=== PATIENT | male | born 1940 | race Caucasian/White ===

== ENCOUNTER 2021-02-14 09:40 | Inpatient (IN) ==
--- NOTE | 2021-02-14 10:37 | Emergency Department Note ---
Impression & Plan CHF (congestive heart failure), Hypoxic, Back fracture ED Provider Note NAME: HOLLEY DUNAWAY AGE: 80 SEX: M : 1940 ARRIVES VIA: Walk-In INFORMANT: Patient ED PROVIDER(S): Dylan Arvizu DO CHIEF COMPLAINT: back pain HPI: Patient is a 80-year-old male with past medical history of spinal stenosis who presents to the ER for lower back pain. He notes that this has been going on for over 5 years and has worsened recently to the point he can no longer get up and move around. He has been having to have assistance for the past 2 months. He denies any belly pain, nausea, vomiting, or diarrhea. He is currently pain-free as long as he is laying. When he gets up and moves he has severe pain 10 out of 10. He denies any headache or change in vision. No chest pain. He has no shortness of breath currently with movement he does get a little short of breath. He does have swelling in his legs. ROS: See above HPI for pertinent positives & negatives. A total of 10 systems reviewed and were otherwise negative. PAST MEDICAL HISTORY:See Below PAST SURGICAL HISTORY:See Below FAMILY HISTORY:See Below SOCIAL HISTORY:See Below HOME MEDICATIONS:See Below ALLERGIES:See Below VITALS:See Below PHYSICAL EXAMINATION: GENERAL: Sitting up in bed, alert, chronically ill-appearing, disheveled EYE EXAM: normal conjunctiva. PERRL and EOM's grossly intact. OROPHARYNX: no exudate, no erythema, lips, buccal mucosa, and tongue normal and mucous membranes are moist NECK: supple, no nuchal rigidity, no adenopathy, non-tender LUNGS: Clear to auscultation. Normal chest wall mechanics HEART: no murmurs, S1 normal and S2 normal ABDOMEN: abdomen soft, non-tender, normo-active bowel sounds, no masses, no rebound or guarding. BACK: Back is symmetrical on inspection tenderness in the lower lumbar midline UPPER EXTREMITIES: upper extremities are grossly normal. LOWER EXTREMITIES: Pitting edema bilaterally which is equal NEURO EXAM: Normal sensorium, cranial nerves II-XII grossly intact, normal speech, no gross weakness of arms, mild flexion of bilateral hips about 20 to 30 degrees. Unable to lift feet off the ground. Plantar and dorsiflexion intact. Gross sensation is intact. MEDICAL DECISION MAKING: Patient is a 80-year-old male who presents the ER for lower back pain. IV was established blood was obtained. He was found to be hypoxic. Labs show no significant anemia. BMP with slightly elevated chloride. Creatinine 1.5. BNP elevated 20,000. Lipase was normal. Covid was negative. CT lower back shows new fractures in combination with chest x-ray of the chest which shows cephalization pleural effusions. Patient was updated bedside. Do favor pitting edema and effusions are consistent with CHF. He was given Lasix. He was updated bedside. He was pain-free as long as he was not moving. He was given a dose of steroids due to the impinged nerves. Discussed with hospitalist and were admitted for further work-up. Triage Nursing notes reviewed. Limited review of prior medical records performed Vital Signs: reviewed and remarkable for hypoxic Differential diagnosis: Differential diagnoses includes but is not limited to acute coronary syndrome, myocardial infarction, pericarditis, pulmonary embolus, aortic dissection, pneumonia, pneumothorax, musculoskeletal, shingles, esophageal. ER treatment provided: See below Diagnostics interpreted by me: ECG: Sinus rhythm rate is 66 Left axis Left bundle PVCs QTC 515 Cardiac Monitoring: An order was placed for continuous cardiac monitoring. The monitor shows a rate of 62 with sinus rhythm. Laboratory studies: As stated above and show below. Imaging studies: Chest x-ray with bilateral effusions CT of the lumbar region shows new compression fractures Consultation(s): Discussed with [facility] hospitalist for further evaluation Procedures: none Critical Care: I have personally spent 33 minutes of critical care time in the direct management of this patient. This includes bedside care, interpretation of diagnostic studies, and testing, discussion with consultants, patient, and family members, and other required patient management activities. This 33 minutes is in excess of all separately billable procedures. Past Med/Surg History Medical History Atrial fibrillation CAD (coronary artery disease) Congestive heart failure COPD (chronic obstructive pulmonary disease) PAD (peripheral artery disease) Surgical History Hx of CABG S/P femoral-femoral bypass surgery Family History Other Diabetes Heart disease Social History (Updated 02/14/21 @ 16:18 by Becca Vo PA-C) Smoking Status: Former smoker Smoking End Date: 1988; Hx Alcohol Use: Yes Alcohol type: beer Alcohol Intake Frequency: 2-4 x/Month Hx Substance Use: No Feels Safe at Home: Yes Allergies Allergies Allergy/AdvReac Type Severity Reaction Status Date / Time carvedilol [From Coreg] AdvReac Severe shortness Unverified 02/14/21 12:34 of breath Home Meds Home Medications Medication Instructions Recorded Confirmed amiodarone 200 mg tablet (Pacerone) 200 mg PO QAM 02/14/21 02/14/21 aspirin 81 mg tablet,delayed 81 mg PO QAM 02/14/21 02/14/21 release (Aspirin Low Dose) furosemide 20 mg tablet (Lasix) 20 mg PO QAM 02/14/21 02/14/21 lisinopril 10 mg tablet (Zestril) 10 mg PO QAM 02/14/21 02/14/21 metoprolol succinate 50 mg 50 mg PO QAM 02/14/21 02/14/21 tablet,extended release 24 hr (Toprol XL) salmeterol 50 mcg/dose blister 1 inh INHALATION BID 02/14/21 02/14/21 powder for inhalation (Serevent Diskus) Results & Data (ED) Vital Signs Vital Signs - 24 hr 02/14/21 09:40 02/14/21 10:06 02/14/21 10:37 Temperature 36.9 C Temperature Source Oral Pulse Rate 60 Pulse Rate [Apical] 59 L Pulse Rate from SpO2 Sensor Pulse Rhythm [Apical] Regular Pulse Strength [Apical] Normal Respiratory Rate 18 24 Respiratory Effort / Characteristics Spontaneous Respiratory Depth Normal Respiratory Pattern Regular Blood Pressure 115/53 L Blood Pressure [Left Arm] 120/60 Blood Pressure Mean 73 Blood Pressure Mean [Left Arm] 80 Blood Pressure Position [Left Arm] Semi-fowlers Pulse Oximetry 97 83 L 88 L Oxygen Delivery Method Nasal Cannula Room Air Room Air Oxygen Flow Rate 2 2 Sepsis Recent Fever Within 48 Hours No Sepsis New/Unexplained Change in Mental Status N/A Sepsis Action Taken by Nursing No Action Required 02/14/21 11:00 02/14/21 11:30 02/14/21 11:40 Temperature Temperature Source Pulse Rate 58 L 67 Pulse Rate [Apical] 65 Pulse Rate from SpO2 Sensor 58 L 59 L Pulse Rhythm [Apical] Regular Pulse Strength [Apical] Normal Respiratory Rate 19 17 20 Respiratory Effort / Characteristics Spontaneous Respiratory Depth Normal Respiratory Pattern Regular Blood Pressure 124/63 128/61 Blood Pressure [Left Arm] 127/62 Blood Pressure Mean 83 83 Blood Pressure Mean [Left Arm] 83 Blood Pressure Position [Left Arm] Semi-fowlers Pulse Oximetry 98 97 96 Oxygen Delivery Method Nasal Cannula Oxygen Flow Rate 2 Sepsis Recent Fever Within 48 Hours Sepsis New/Unexplained Change in Mental Status Sepsis Action Taken by Nursing 02/14/21 12:00 02/14/21 12:30 02/14/21 13:00 Temperature Temperature Source Pulse Rate 66 66 68 Pulse Rate [Apical] 68 Pulse Rate from SpO2 Sensor 64 66 67 Pulse Rhythm [Apical] Regular Pulse Strength [Apical] Normal Respiratory Rate 18 26 H 16 Respiratory Effort / Characteristics Spontaneous Respiratory Depth Normal Respiratory Pattern Regular Blood Pressure 127/62 134/73 121/80 Blood Pressure [Left Arm] 134/73 Blood Pressure Mean 83 93 93 Blood Pressure Mean [Left Arm] 93 Blood Pressure Position [Left Arm] Semi-fowlers Pulse Oximetry 98 97 95 Oxygen Delivery Method Nasal Cannula Oxygen Flow Rate 2 Sepsis Recent Fever Within 48 Hours Sepsis New/Unexplained Change in Mental Status Sepsis Action Taken by Nursing 02/14/21 13:33 Temperature Temperature Source Pulse Rate 67 Pulse Rate [Apical] Pulse Rate from SpO2 Sensor 68 Pulse Rhythm [Apical] Pulse Strength [Apical] Respiratory Rate 17 Respiratory Effort / Characteristics Respiratory Depth Respiratory Pattern Blood Pressure Blood Pressure [Left Arm] Blood Pressure Mean Blood Pressure Mean [Left Arm] Blood Pressure Position [Left Arm] Pulse Oximetry 95 Oxygen Delivery Method Oxygen Flow Rate Sepsis Recent Fever Within 48 Hours Sepsis New/Unexplained Change in Mental Status Sepsis Action Taken by Nursing Laboratory Data Result diagrams: 02/14/21 11:00 02/14/21 11:00 Lab Results 02/14/21 02/14/21 02/14/21 Range/Units 11:00 11:00 11:00 WBC 7.69 (4.8-10.8) K/uL RBC 3.77 L (4.7-6.1) M/uL Hgb 13.8 L (14.0-18.0) g/dL Hct 42.4 (42-52) % MCV 112.5 H (80-100) fL MCH 36.6 H (25-34) pg MCHC 32.5 (32-36) g/dL RDW Std Deviation 62.6 H (36.4-46.3) fL RDW Coeff of Patrizia 15.2 H (11.5-14.5) % Plt Count 159 (130-400) K/uL MPV 10.3 (7.4-10.4) fL Immature Gran % (Auto) 0.3 % Neut % (Auto) 76.1 % Lymph % (Auto) 10.3 % [place] % (Auto) 12.4 % Eos % (Auto) 0.8 % Baso % (Auto) 0.1 % Neut # (Auto) 5.86 (1.4-6.5) K/uL Lymph # (Auto) 0.79 L (1.2-3.4) K/uL [place] # (Auto) 0.95 H (0.11-0.59) K/uL Eos # (Auto) 0.06 (0-0.5) K/uL Baso # (Auto) 0.01 (0-0.2) K/uL Immature Gran # (Auto) 0.02 (0.00-0.02) K/uL Macrocytosis Present APTT 25.6 (21.0-31.0) Seconds PTT Ratio 1.0 Sodium 143 (136-145) mmol/L Potassium 4.5 (3.5-5.1) mmol/L Chloride 111 H (98-107) mmol/L Carbon Dioxide 26 (21-32) mmol/L Anion Gap 6.0 (3-11) BUN 37 H (7-18) mg/dl Creatinine 1.50 H (0.6-1.4) mg/dl Est Cr Clr Drug Dosing 42.5 ml/min Est GFR ( Amer) 50.6 ml/min Est GFR (Non-Af Amer) 43.7 ml/min BUN/Creatinine Ratio 24.9 H (10-20) Glucose 97 (70-99) mg/dl Calcium 9.0 (8.5-10.1) mg/dl Total Bilirubin 1.0 (0.2-1) mg/dl AST 52 H (15-37) U/L ALT 30 (12-78) U/L Alkaline Phosphatase 162 H (45-117) U/L Troponin I < 0.015 (0-0.045) ng/ml NT-Pro-B Natriuret Pep [id number] H (0-1800) pg/ml Total Protein 6.9 (6.4-8.2) gm/dl Albumin 3.3 L (3.4-5.0) gm/dl Globulin 3.6 (2.5-4.0) gm/dl Albumin/Globulin Ratio 0.9 (0.9-2) Lipase 66 L (73-393) U/L COVID-19 Eval Order SARS-CoV-2 (PCR) (Negative) 02/14/21 02/14/21 Range/Units 11:03 11:03 WBC (4.8-10.8) K/uL RBC (4.7-6.1) M/uL Hgb (14.0-18.0) g/dL Hct (42-52) % MCV (80-100) fL MCH (25-34) pg MCHC (32-36) g/dL RDW Std Deviation (36.4-46.3) fL RDW Coeff of Patrizia (11.5-14.5) % Plt Count (130-400) K/uL MPV (7.4-10.4) fL Immature Gran % (Auto) % Neut % (Auto) % Lymph % (Auto) % [place] % (Auto) % Eos % (Auto) % Baso % (Auto) % Neut # (Auto) (1.4-6.5) K/uL Lymph # (Auto) (1.2-3.4) K/uL [place] # (Auto) (0.11-0.59) K/uL Eos # (Auto) (0-0.5) K/uL Baso # (Auto) (0-0.2) K/uL Immature Gran # (Auto) (0.00-0.02) K/uL Macrocytosis APTT (21.0-31.0) Seconds PTT Ratio Sodium (136-145) mmol/L Potassium (3.5-5.1) mmol/L Chloride (98-107) mmol/L Carbon Dioxide (21-32) mmol/L Anion Gap (3-11) BUN (7-18) mg/dl Creatinine (0.6-1.4) mg/dl Est Cr Clr Drug Dosing ml/min Est GFR ( Amer) ml/min Est GFR (Non-Af Amer) ml/min BUN/Creatinine Ratio (10-20) Glucose (70-99) mg/dl Calcium (8.5-10.1) mg/dl Total Bilirubin (0.2-1) mg/dl AST (15-37) U/L ALT (12-78) U/L Alkaline Phosphatase (45-117) U/L Troponin I (0-0.045) ng/ml NT-Pro-B Natriuret Pep (0-1800) pg/ml Total Protein (6.4-8.2) gm/dl Albumin (3.4-5.0) gm/dl Globulin (2.5-4.0) gm/dl Albumin/Globulin Ratio (0.9-2) Lipase (73-393) U/L COVID-19 Eval Order Covid19 at [facility] SARS-CoV-2 (PCR) NEGATIVE (Negative) Administered Medications Discontinued Medications Dexamethasone Sodium Phosphate (DexamethasonePf 10 Mg/Ml Vial) 8 mg IV NOW ONE Stop: 02/14/21 12:30 Last Admin: 02/14/21 12:52 Dose: 8 mg Documented by: [id number] Furosemide (Furosemide 40 Mg/4 Ml Vial) 40 mg IV NOW STA Stop: 02/14/21 12:12 Last Admin: 02/14/21 12:16 Dose: 40 mg Documented by: [id number] Imaging Data Radiologist's Impression: Chest X-Ray 02/14/21 10:31 XR chest 1V portable HISTORY: 80 years-old Male Chest Pain . Acute atypical chest pain COMPARISON: Chest CT 06/28/2015 TECHNIQUE: Portable AP view of the chest FINDINGS: Cardiac silhouette is enlarged. Prior median sternotomy. Left subclavian pacer/AICD. Emphysema. Pulmonary vascular congestion with progressive interstiti al coarsening. Small left pleural effusion with left lung base opacities. No pneumothorax. Degenerative changes of the shoulders and spine. IMPRESSION: 1. Small left pleural effusion with left lung base opacities suggestive of atelectasis versus pneumonia. 2. Emphysema and chronic interstitial coarsening. 3. Cardiomegaly with pulmonary vascular congestion. ACT 112: Negative or not required by law. The above report was generated using voice recognition software. It may contain grammatical, syntax or spelling errors. Electronically signed by: Tulio Esquivel M.D. 02/14/2021 11:[address] 02/14/21 10:31 CT SCAN OF THE LUMBAR SPINE WITHOUT IV CONTRAST CLINICAL HISTORY: Low back pain. COMPARISON STUDY: CT of the lumbar spine dated 09/09/2012. TECHNIQUE: CT scan of the lumbar spine is performed from the lower thoracic spine to the sacrum. Images are reviewed in the axial, sagittal, and coronal planes. IV contrast was not administered for this examination. A dose lowering technique was utilized adhering to the principles of ALARA. CT DOSE: 726.73 mGy.cm FINDINGS: The skeletal structures are osteopenic. There is a moderate superior endplate compression deformity of L4. There are minimally retropulsed fragments at this level by up to 4 mm. There is a mild superior endplate compression deformity of L2 with no retropulsed fragments seen. These are age-indeterminate but new from 09/09/2012. The L2 fracture may be acute to subacute and there is paravertebral edema. A minimal chronic superior endplate compression deformity of L1 is unchanged from 2013. Vertebral body height is otherwise maintained throughout the lumbar spine. Alignment is preserved. The transverse and spinous processes appear intact. There is no spondylolysis. No lytic or blastic lesion is seen. There is moderate disc space narrowing at L4-L5 and L5-S1. Endplate sclerosis is seen at L5-S1. Posterior disc osteophyte complexes are seen at all lumbar levels from L2 -L3 through L5-S1 and may contribute to mild acquired compromise of the central canal. A right lateral disc extrusion at L4-L5 may impinge on the exiting right L4 nerve root. This is best seen on axial image #302. Facet arthropathy is noted in the mid to lower lumbar region. The visualized sacrum and bony pelvis appear intact. There is fatty atrophy of the paraspinous musculature. Calcific pleural plaques are seen at both lung bases. Bilateral pleural effusions are partially imaged. There is advanced atherosclerotic calcification and ectasia of the abdominal aorta. A saccular aneurysm on image #192 measures up to 2 cm. No retroperitoneal lymphadenopathy is seen. An exophytic cyst is partially visualized arising from the left kidney. There is a 6 mm nonobstructing right renal calculus. Trace ascites is noted in the pelvis. IMPRESSION: 1. There is a mild compression deformity of L2 which is new from 09/09/2012. This may be acute to subacute and there is mild paravertebral edema at this level. Correlate for point tenderness. 2. A moderate superior endplate compression deformity of L4 is also new from 09/09/2012. This is age-indeterminate but likely chronic. 3. A minimal superior endplate compression deformity of L1 is unchanged from 2013. 4. A right lateral disc extrusion at L4-L5 may impinge on the exiting right L4 nerve root. 5. Osteopenia with additional spondylotic and degenerative changes as above. 6. Bilateral pleural effusions are partially visualized. 7. Right-sided nephrolithiasis. 8. 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 9. A small volume of pelvic ascites is partially imaged. ACT 112: Negative or not required by law. Dictated: 02/14/2021 10:52 AM Transcribed: 02/14/2021 11:37 AM [place] [id number] [facility] Electronically signed by: Richard Fink M.D. 02/14/2021 11:41 AM Discharge Plan Visit Data Chief Complaint: Back Injury/Pain Stated Complaint: SEVERE BACK PAIN ED Provider: Dylan Arvizu Discharge Problem: CHF (congestive heart failure), Hypoxic, Back fracture Discharge Instructions Interventions: ED Discharge Assessment Last Done: 02/14/21 16:12 Discharge Problem: CHF (congestive heart failure) Qualifiers: Heart failure type: unspecified Heart failure chronicity: unspecified Qualified Code(s): I50.9 - Heart failure, unspecified Back fracture Qualifiers: Encounter type: initial encounter Fracture of vertebra location: lumbar
[2021-02-14 11:24] LABS: Basophils # (auto) 0.01 K/uL (0-0.2); Basophils % (auto) 0.1 %; Eosinophils # (auto) 0.06 K/uL (0-0.5); Eosinophils % (auto) 0.8 %; Hematocrit (blood only) 42.4 % (42-52); Hemoglobin 13.8 g/dL (14.0-18.0); Immature Granulocytes # (auto) 0.02 K/uL (0.00-0.02); Immature Granulocytes % (auto) 0.3 %; Lymphocytes # (auto) 0.79 K/uL (1.2-3.4); Lymphocytes % (auto) 10.3 %; Mean Corpuscular Hemoglobin 36.6 pg (25-34); Mean Corpuscular Hgb Conc 32.5 g/dL (32-36); Mean Corpuscular Volume 112.5 fL (80-100); Mean Platelet Volume 10.3 fL (7.4-10.4); Monocytes # (auto) 0.95 K/uL (0.11-0.59); Monocytes % (auto) 12.4 %; Neutrophils # (auto) 5.86 K/uL (1.4-6.5); Neutrophils % (auto) 76.1 %; Platelet Count 159 K/uL (130-400); RDW Coefficient of Variation 15.2 % (11.5-14.5); RDW Standard Deviation 62.6 fL (36.4-46.3); Red Blood Count 3.77 M/uL (4.7-6.1); White Blood Count 7.69 K/uL (4.8-10.8)
--- NOTE | 2021-02-14 11:42 | CT Scan Report ---
CT SCAN OF THE LUMBAR SPINE WITHOUT IV CONTRAST CLINICAL HISTORY: Low back pain. COMPARISON STUDY: CT of the lumbar spine dated 09/09/2012. TECHNIQUE: CT scan of the lumbar spine is performed from the lower thoracic spine to the sacrum. Imag es are reviewed in the axial, sagittal, and coronal planes. IV contrast was not administered for this examination. A dose lowering technique was utilized adhering to the principles of ALARA. CT DOSE: 726.73 mGy.cm FINDINGS: The skeletal structures are osteopenic. There is a moderate superior endplate compression d eformity of L4. There are minimally retropulsed fragments at this level by up to 4 mm. There is a mil d superior endplate compression deformity of L2 with no retropulsed fragments seen. These are age-ind eterminate but new from 09/09/2012. The L2 fracture may be acute to subacute and there is paravertebr al edema. A minimal chronic superior endplate compression deformity of L1 is unchanged from 2013. Yoly tebral body height is otherwise maintained throughout the lumbar spine. Alignment is preserved. The t ransverse and spinous processes appear intact. There is no spondylolysis. No lytic or blastic lesion is seen. There is moderate disc space narrowing at L4-L5 and L5-S1. Endplate sclerosis is seen at L5- S1. Posterior disc osteophyte complexes are seen at all lumbar levels from L2 -L3 through L5-S1 and m ay contribute to mild acquired compromise of the central canal. A right lateral disc extrusion at L4- L5 may impinge on the exiting right L4 nerve root. This is best seen on axial image #302. Facet arthr opathy is noted in the mid to lower lumbar region. The visualized sacrum and bony pelvis appear intac t. There is fatty atrophy of the paraspinous musculature. Calcific pleural plaques are seen at both l amy bases. Bilateral pleural effusions are partially imaged. There is advanced atherosclerotic calcif ication and ectasia of the abdominal aorta. A saccular aneurysm on image #192 measures up to 2 cm. No retroperitoneal lymphadenopathy is seen. An exophytic cyst is partially visualized arising from the left kidney. There is a 6 mm nonobstructing right renal calculus. Trace ascites is noted in the pelvi s. IMPRESSION: 1. There is a mild compression deformity of L2 which is new from 09/09/2012. This may be acute to sub acute and there is mild paravertebral edema at this level. Correlate for point tenderness. 2. A moderate superior endplate compression deformity of L4 is also new from 09/09/2012. This is age- indeterminate but likely chronic. 3. A minimal superior endplate compression deformity of L1 is unchanged from 2013. 4. A right lateral disc extrusion at L4-L5 may impinge on the exiting right L4 nerve root. 5. Osteopenia with additional spondylotic and degenerative changes as above. 6. Bilateral pleural effusions are partially visualized. 7. Right-sided nephrolithiasis. 8. 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 9. A small volume of pelvic ascites is partially imaged. ACT 112: Negative or not required by law. Dictated: 02/14/2021 10:52 AM Transcribed: 02/14/2021 11:37 AM [place] [id number] [facility] Electronically signed by: Richard Fink M.D. 02/14/2021 11:41 AM
[2021-02-14 11:43] LABS: Partial Thromboplastin Time 25.6 Seconds (21.0-31.0)
[2021-02-14 11:44] LABS: Alanine Aminotransferase 30 U/L (12-78); Albumin Level 3.3 gm/dl (3.4-5.0); Aspartate Aminotransferase 52 U/L (15-37); BUN Creatinine Ratio 24.9 (10-20); Blood Urea Nitrogen 37 mg/dl (7-18); Carbon Dioxide 26 mmol/L (21-32); Chloride 111 mmol/L (98-107); Creatinine Clr Calc Pharmacy 42.5 ml/min; Est GFR (African American) 50.6 ml/min; Est GFR (Non-African American) 43.7 ml/min; Glucose 97 mg/dl (70-99); Lipase 66 U/L (73-393); Potassium 4.5 mmol/L (3.5-5.1); Sodium 143 mmol/L (136-145)
[2021-02-14 11:49] LABS: Albumin Globulin Ratio 0.9 (0.9-2); Alkaline Phosphatase 162 U/L (45-117); Globulin 3.6 gm/dl (2.5-4.0); Macrocytosis Present; NT Pro B Type Natriuretic Pept 19578 pg/ml (0-1800); Total Protein 6.9 gm/dl (6.4-8.2); Troponin I < 0.015 ng/ml (0-0.045)
--- NOTE | 2021-02-14 11:57 | XRay Report ---
XR chest 1V portable HISTORY: 80 years-old Male Chest Pain . Acute atypical chest pain COMPARISON: Chest CT 06/28/2015 TECHNIQUE: Portable AP view of the chest FINDINGS: Cardiac silhouette is enlarged. Prior median sternotomy. Left subclavian pacer/AICD. Emphysema. Pulmo nary vascular congestion with progressive interstitial coarsening. Small left pleural effusion with l eft lung base opacities. No pneumothorax. Degenerative changes of the shoulders and spine. IMPRESSION: 1. Small left pleural effusion with left lung base opacities suggestive of atelectasis versus pneumon ia. 2. Emphysema and chronic interstitial coarsening. 3. Cardiomegaly with pulmonary vascular congestion. ACT 112: Negative or not required by law. The above report was generated using voice recognition software. It may contain grammatical, syntax o r spelling errors. Electronically signed by: Tulio Esquivel M.D. 02/14/2021 11:55 AM
[2021-02-14] MEDS ORDERED: FUROSEMIDE 40 MG/4 ML VIAL IV STA (12:11)
[2021-02-14] MEDS ORDERED: dexAMETHasone**PF** 10 MG/ML VIAL IV ONE (12:29)
--- NOTE | 2021-02-14 13:43 | History & Physical Report ---
Date of Service February 14, 2021 Assessment & Plan (1) Acute respiratory failure with hypoxia: Plan: This is a 80yo M with a PMH of CAD (s/p CABG in 1994 in [place]), PAD (s/p bilateral femoral stents), COPD, atrial fibrillation and other medical problems listed below who presents with worsening back pain over the past week and was found to have acute hypoxia and decompensated heart failure as well as compression deformity of L2. Initially hypoxic at 83%, improved to 97% on 2L NC In setting of decompensated heart failure Patient did not feel SOB at 83% initially - possibly hypoxic at baseline Would benefit from 2 step at discharge if oxygenation does not improve with diuresis (2) Decompensated heart failure: Plan: CXR with small left pleural effusion with left lung base opacities suggestive of atelectasis versus pneumonia. Cardiomegaly with pulmonary vascular congestion Pro-BNP 19,578, troponin wnl, ECG with wide QRS complexes with PVCs, LAD and LBBB (no EKGs available for comparison) Given 40mg IV Lasix in ED Echo ordered, routine cardiology consult, trend cardiac enzymes repeat labs and ECG in AM Low sodium diet, strict I&Os, monitor daily weights Continue daily IV Lasix 40mg daily (3) Lumbar compression fracture: (4) Ambulatory dysfunction: Plan: History of spinal stenosis, worsening pain and ambulatory dysfunction over the past month since fall CT lumbar spine with * 1. There is a mild compression deformity of L2 which is new from 09/09/2012. This may be acute to subacute and there is mild paravertebral edema at this level. Correlate for point tenderness. 2. A moderate superior endplate compression deformity of L4 is also new from 09/09/2012. This is age-indeterminate but likely chronic. 3. A minimal superior endplate compression deformity of L1 is unchanged from 2013. 4. A right lateral disc extrusion at L4-L5 may impinge on the exiting right L4 nerve root. Given 8mg IV Dexamethasone in ER Adding Lidocaine patch and scheduled Tylenol Fall precautions Dr. Sawant of ortho spine consulted (5) CAD (coronary artery disease): Plan: History of CABG in 1994 at [place], follows with Dr. Holm of [facility] cardiology No chest pain Continue aspirin, Toprol Previously noncompliant with statin - agreeable to resume Will request OP records (6) COPD (chronic obstructive pulmonary disease): Plan: Quit smoking in 1988. Not on home O2. COPD appears to be at baseline. Continue Salmeterol inh BID (7) Atrial fibrillation: Plan: Continue amiodarone. Not on anticoagulation (8) PAD (peripheral artery disease): Plan: H/o vascular intervention of femoral A. bilaterally per patient at [facility]. Planning to resume statin, continue aspirin (9) Macrocytic anemia: Plan: Hgb 13.8, MCV 112.5 - longstanding alcohol use B12 and folate labs pending for AM DVT Ppx: SQ heparin Code status: FULL PCP: Hector ([facility]) Dispo: Admitted to PCU. Discharge planning ordered Patient seen in collaboration with Dr. Wong. Please see addendum. History of Present Illness Chief Complaint: back pain Primary Care Provider: Vita Wright DO This is a 80yo M with a PMH of CAD (s/p CABG in 1994 in [place]), PAD (s/p bilateral femoral stents), COPD, atrial fibrillation and other medical problems listed below who presents with worsening back pain over the past week. Patient has had back pain for years and was evaluated by Dr. Sawant approximately 5 years ago and told to proceed with medical management for that time. Patient had a fall at the beginning of the month. thinks patient is weaker than he used to be and is unable to lower himself down slowly into chairs and onto the toilet, resulting in him "slamming down" and aggravating back pain. Since then, patient has had worsening lower back pain near his waistband and is also having trouble with ambulation. Denies any bowel or bladder incontinence, saddle anesthesia, numbness or pain in lower extremities. Has not been taking anything for pain. Also has history of CAD and CHF. Follows with floor surfacer Dr. Holm at [facility]. Unsure when last echocardiogram was performed. Has a defibrillator - most recent one placed 4 years ago. Unsure of reason why. Takes 20mg Lasix daily. Notes increased volume lower extremities. states patient has lost weight overall. Denies any shortness of breath, orthopnea or PND. Patient states he is chronically short of breath with COPD but that he had not noticed it was worse than baseline before coming in. Does not require home oxygen. Denies fever, chills, congestion, chest pain, palpitations, wheezing, nausea, vomiting, abdominal pain, dysuria, diarrhea constipation. Patient receives primary care in [place]. Allergies Allergy/AdvReac Type Severity Reaction Status Date / Time carvedilol [From Coreg] AdvReac Severe shortness Unverified 02/14/21 12:34 of breath Home Medications Medication Instructions Recorded Confirmed Type amiodarone 200 mg tablet (Pacerone) 200 mg PO QAM 02/14/21 02/14/21 History aspirin 81 mg tablet,delayed 81 mg PO QAM 02/14/21 02/14/21 History release (Aspirin Low Dose) furosemide 20 mg tablet (Lasix) 20 mg PO QAM 02/14/21 02/14/21 History lisinopril 10 mg tablet (Zestril) 10 mg PO QAM 02/14/21 02/14/21 History metoprolol succinate 50 mg 50 mg PO QAM 02/14/21 02/14/21 History tablet,extended release 24 hr (Toprol XL) salmeterol 50 mcg/dose blister 1 inh INHALATION BID 02/14/21 02/14/21 History powder for inhalation (Serevent Diskus) Past Med/Surg History Medical History Atrial fibrillation CAD (coronary artery disease) Congestive heart failure COPD (chronic obstructive pulmonary disease) PAD (peripheral artery disease) Surgical History Hx of CABG S/P femoral-femoral bypass surgery Family History Other Diabetes Heart disease Social History (Updated 02/14/21 @ 16:18 by Becca Vo PA-C) Smoking Status: Former smoker Smoking End Date: 1988; Second Hand Exposure: No; Tobacco Cessation Education Requested by Patient: No Hx Alcohol Use: Yes Alcohol type: beer Alcohol Intake Frequency: 2-4 x/Month Hx Substance Use: No Preferred Language: Italian Communication Ability: Effective Threshing Machine Operator Required: Voice Beliefs That Will Affect Care: None Current Living Situation: Spouse Other Information That Helps Us Care for You: No Feels Safe at Home: Yes Safety Concerns: Feels Safe At This Time Assistive Devices: Cane and Walker Review of Systems Review of Systems: At least ten systems reviewed and negative except as noted in the HPI. Physical Exam Physical Exam: General Appearance: vitals as above, appears chronically ill, sitting up in bed, pleasant, conversing easily Head: normocephalic, atraumatic Eyes: normal inspection, PERRL, conjunctivae normal, anicteric sclerae ENT: external ear and nose normal, oropharynx normal Neck: normal visual inspection, trachea midline, no thyromegaly Respiratory: normal respiratory effort, bibasilar rales, no wheeze or rhonchi. No accessory muscle use Cardiovascular: regular rate, rhythm, no murmur, normal peripheral pulses, 2+ BLE edema. Vessels: no JVD Chest: normal inspection of chest Abdomen/GI: normal bowel sounds, soft, nontender, no hepatosplenomegaly Extremities/Musculoskeletal: no cyanosis or clubbing, extremities motor strength 5/5 Neurologic: PERRL, EOMI, accommodation nl, no face palsy, no dysarthria, CN's II-XI intact bilaterally and moves all extremities Psychiatric: A+Ox3, euthymic affect, poor insight Skin: no rashes, normal color, warm/dry Results & Data Results & Data ([facility]) Vital Signs (Past 12 Hours) Vital Signs Temp Pulse Pulse Resp BP BP Pulse Ox 02/14/21 13:00 68 19 134/73 97 02/14/21 11:40 65 20 127/62 96 02/14/21 10:37 88 L 02/14/21 10:06 36.9 C 60 24 115/53 L 83 L 02/14/21 09:40 59 L 18 120/60 97 Laboratory Results Short CBC 02/14/21 Range/Units 11:00 WBC 7.69 (4.8-10.8) K/uL Hgb 13.8 L (14.0-18.0) g/dL Hct 42.4 (42-52) % Plt Count 159 (130-400) K/uL BMP 02/14/21 11:00 Sodium 143 Potassium 4.5 Chloride 111 H Carbon Dioxide 26 BUN 37 H Creatinine 1.50 H Glucose 97 Calcium 9.0 Cardiac Enzymes 02/14/21 Range/Units 11:00 Troponin I < 0.015 (0-0.045) ng/ml Liver Function 02/14/21 Range/Units 11:00 Total Bilirubin 1.0 (0.2-1) mg/dl AST 52 H (15-37) U/L ALT 30 (12-78) U/L Alkaline Phosphatase 162 H (45-117) U/L Albumin 3.3 L (3.4-5.0) gm/dl Diagnostic Findings Chest X-Ray 02/14/21 10:31 XR chest 1V portable HISTORY: 80 years-old Male Chest Pain . Acute atypical chest pain COMPARISON: Chest CT 06/28/2015 TECHNIQUE: Portable AP view of the chest FINDINGS: Cardiac silhouette is enlarged. Prior median sternotomy. Left subclavian pacer/AICD. Emphysema. Pulmonary vascular congestion with progressive interstitial coarsening. Small left pleural effusion with left lung base opacities. No pneumothorax. Degenerative changes of the shoulders and spine. IMPRESSION: 1. Small left pleural effusion with left lung base opacities suggestive of atelectasis versus pneumonia. 2. Emphysema and chronic interstitial coarsening. 3. Cardiomegaly with pulmonary vascular congestion. ACT 112: Negative or not required by law. The above report was generated using voice recognition software. It may contain grammatical, syntax or spelling errors. Electronically signed by: Tulio Esquivel M.D. 02/14/2021 11:[address] 02/14/21 10:31 CT SCAN OF THE LUMBAR SPINE WITHOUT IV CONTRAST CLINICAL HISTORY: Low back pain. COMPARISON STUDY: CT of the lumbar spine dated 09/09/2012. TECHNIQUE: CT scan of the lumbar spine is performed from the lower thoracic spine to the sacrum. Images are reviewed in the axial, sagittal, and coronal planes. IV contrast was not administered for this examination. A dose lowering technique was utilized adhering to the principles of ALARA. CT DOSE: 726.73 mGy.cm FINDINGS: The skeletal structures are osteopenic. There is a moderate superior endplate compression deformity of L4. There are minimally retropulsed fragments at this level by up to 4 mm. There is a mild superior endplate compression deformity of L2 with no retropulsed fragments seen. These are age-indeterminate but new from 09/09/2012. The L2 fracture may be acute to subacute and there is paravertebral edema. A minimal chronic superior endplate compression deformity of L1 is unchanged from 2012. Vertebral body height is otherwise maintained throughout the lumbar spine. Alignment is preserved. The transverse and spinous processes appear intact. There is no spondylolysis. No lytic or blastic lesion is seen. There is moderate disc space narrowing at L4-L5 and L5-S1. Endplate sclerosis is seen at L5-S1. Posterior disc osteophyte complexes are seen at all lumbar levels from L2 -L3 through L5-S1 and may contribute to mild acquired compromise of the central canal. A right lateral disc extrusion at L4-L5 may impinge on the exiting right L4 nerve root. This is best seen on axial image #302. Facet arthropathy is noted in the mid to lower lumbar region. The visualized sacrum and bony pelvis appear intact. There is fatty atrophy of the paraspinous musculature. Calcific pleural plaques are seen at both lung bases. Bilateral pleural effusions are partially imaged. There is advanced atherosclerotic calcification and ectasia of the abdominal aorta. A saccular aneurysm on image #192 measures up to 2 cm. No retroperitoneal lymphadenopathy is seen. An exophytic cyst is partially visualized arising from the left kidney. There is a 6 mm nonobstructing right renal calculus. Trace ascites is noted in t he pelvis. IMPRESSION: 1. There is a mild compression deformity of L2 which is new from 09/09/2012. This may be acute to subacute and there is mild paravertebral edema at this level. Correlate for point tenderness. 2. A moderate superior endplate compression deformity of L4 is also new from 09/09/2012. This is age-indeterminate but likely chronic. 3. A minimal superior endplate compression deformity of L1 is unchanged from 2013. 4. A right lateral disc extrusion at L4-L5 may impinge on the exiting right L4 nerve root. 5. Osteopenia with additional spondylotic and degenerative changes as above. 6. Bilateral pleural effusions are partially visualized. 7. Right-sided nephrolithiasis. 8. 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 9. A small volume of pelvic ascites is partially imaged. ACT 112: Negative or not required by law. Dictated: 02/14/2021 10:52 AM Transcribed: 02/14/2021 11:37 AM [place] [id number] [facility] Electronically signed by: Richard Fink M.D. 02/14/2021 11:41 AM Code Status & VTE Plan VTE Prophylaxis Plan VTE Prophylaxis will be ordered: Yes Supervising Physician Co-Signing Physician Notes Patient is a 80-year-old male with history of degenerative disc disease, CAD status post CABG, heart failure with reduced EF s/p ICD placement, chronic lower extremity edema, recent falls admitted for lumbar spine compression fracture and elevated pro BNP with hypoxia Exam: NAD Systolic murmur on heart exam Bilateral severe pitting edema A/P: Elevated proBNP with hypoxia: - Secondary to acute decompensated heart failure We will start the patient on IV 40 mg Lasix daily Repeat echocardiogram - Strict I's and O's - Cardiology consult Possible compression fracture of L2 and L4: Pain management with medication - Ortho consult - PT OT Elevated AST and alk phos: -We will monitor CMP Left bundle branch block on EKG: - No prior EKG to compare therefore will obtain an a.m. EKG Agree with VENKATA A/P
[2021-02-14] MEDS ORDERED: ONDANSETRON INJ 2 MG/ML 2 ML VIAL IV PRN (16:42)
[2021-02-14] MEDS ORDERED: ACETAMINOPHEN 325 MG TAB PO PRN (16:42)
[2021-02-14] MEDS: HEPARIN SOD 5,000 UNIT/0.5 ML VIAL SQ SCH ×2 (17:45→21:01)
--- NOTE | 2021-02-14 18:29 | Electrocardiogram Report ---
Test Reason : Blood Pressure : / mmHG Vent. Rate : 066 BPM Atrial Rate : 071 BPM P-R Int : 000 ms QRS Dur : 182 ms QT Int : 492 ms P-R-T Axes : 000 -35 143 degrees QTc Int : 515 ms Idioventricular rhythm with PVC Left axis deviation Left bundle branch block Abnormal ECG No previous ECGs available Confirmed by Seth An ([id number]) on 02/14/2021 6:29:04 PM Referred By: REFERRED SELF Confirmed By:Golden An
[2021-02-14] MEDS ORDERED: ACETAMINOPHEN 500 MG TAB PO PRN (19:51)
[2021-02-14] MEDS: LIDOCAINE 5% 1 PATCH TD SCH (21:01)
[2021-02-15] MEDS: HEPARIN SOD 5,000 UNIT/0.5 ML VIAL SQ SCH ×3 (06:22→20:22)
[2021-02-15 07:02] LABS: Hematocrit (blood only) 41.8 % (42-52); Hemoglobin 13.1 g/dL (14.0-18.0); Mean Corpuscular Hemoglobin 35.7 pg (25-34); Mean Corpuscular Hgb Conc 31.3 g/dL (32-36); Mean Corpuscular Volume 113.9 fL (80-100); Mean Platelet Volume 9.6 fL (7.4-10.4); Platelet Count 148 K/uL (130-400); RDW Standard Deviation 62.1 fL (36.4-46.3); Red Blood Count 3.67 M/uL (4.7-6.1); White Blood Count 4.58 K/uL (4.8-10.8)
[2021-02-15 07:37] LABS: BUN Creatinine Ratio 23.5 (10-20); Calcium 8.5 mg/dl (8.5-10.1); Creatinine Clr Calc Pharmacy 37.7 ml/min; Est GFR (African American) 43.8 ml/min; Est GFR (Non-African American) 37.8 ml/min; Potassium 5.1 mmol/L (3.5-5.1)
[2021-02-15 08:04] LABS: Folate (Folic Acid) 6.2 ng/ml (>5.38)
[2021-02-15] MEDS: lisinopril 10 MG TAB PO SCH (08:28)
[2021-02-15] MEDS: METOPROLOL SUCC 50MG EXT REL TAB PO SCH ×3 (08:29→09:41)
[2021-02-15] MEDS: AMIODARONE 200 MG TAB PO SCH ×3 (08:30→09:41)
[2021-02-15] MEDS: ASPIRIN 81 MG ECTAB PO SCH (08:30)
[2021-02-15] MEDS: FUROSEMIDE 40 MG in SYRINGE 0 ML IV SCH (08:30)
[2021-02-15] MEDS: ATORVASTATIN 40 MG TAB PO SCH (08:30)
[2021-02-15] MEDS: LIDOCAINE 5% 1 PATCH TD SCH (08:31)
[2021-02-15] MEDS: OLODATEROL HCL 2.5MCG/ACTUATION 60 PUFFS/INHALER INH SCH (08:31)
--- NOTE | 2021-02-15 08:49 | Cardiology Consultation ---
Date of Consultation February 15, 2021 Assessment & Plan (1) Acute on chronic systolic heart failure: (2) CAD (coronary artery disease): (3) Acute respiratory failure with hypoxia: (4) Back fracture: (5) Atrial fibrillation: Patient presenting for back pain, found to be in acute on chronic systolic HF with evidence of volume overload. He follows with outside cardiology group and records have been requested. Echo consistent with ischemic cardiomyopathy with LVEF 25%. He has ICD in place and likely chronic condition. Recommendations: Furosemide 40 mg IV daily. Volume status improved with several doses since admission. Monitor renal function and electrolytes Daily weight Monitor I+O's Continue home medications including amiodarone, ASA, lisinopril and metoprolol succinate. Oral furosemide on hold. Will review records when available from his primary cardiology office in [place], including office notes, last ICD interrogation (pressing department supervisor unknown at this time), and last echo. In regards to back pain, conservative therapies would be recommended as he is high risk for intervention given his cardiac status. Case discussed with Dr. Hill. Will follow. Supervising Physician Co-Signing Physician Notes Patient was seen and personally examined. Assessment as above. Patient is a 80-year-old male with a very extensive vascular and cardiac history with limited information available. He presents this admission predominantly due to back pain however found to be in decompensated congestive heart failure historically and on exam. Patient is responding to IV diuretics Records requested regarding past evaluations TSH with T4 added to laboratory studies given amiodarone use Patient on heart failure indicated beta-annel, BRITTNEY inhibitor, aspirin. Statin restarted on admission We will follow History of Present Illness Reason for Consultation: CHF; Hypoxia Requesting Physician: Becca Vo PA-C Attending Physician: Dr. Hill History of Present Illness Patient is a 80-year-old male who is admitted to [facility] with complaints of severe back pain. On admission he was found to be hypoxic, with b/l pleural effusions, edema, and elevated BNP consistent with acute on chronic systolic heart failure exacerbation. Patient is somewhat poor historian. 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 He has been reportedly following with Dr. Holm at [facility] but last appointment was approx 1 year ago, missing follow up visits due to COVID concerns. He believes he had his ICD interrogated about 1 year ago. He does not know his medications, as his assists. Other history includes vascular disease, for which he follows with provider in [place]. He has b/l femoral stents per records, and he reports s/p left carotid stent. He takes amiodarone per records, but not on anticoagulation for unknown reasons. Unsure if amiodarone is for VT vs afib? He notes chronic back pain and difficulty ambulating over the recent weeks. Had several falls. He came to ER for assistance due to back pain. He also reports worsening LE edema b/l over the last few weeks. He believes he was taking diuretics at home but is uncertain. On admission, he was started on IV lasix. Echo revealed ischemic cardiomyopathy with LVEF 25% At time of admission, patient reports feeling "better" since admission. Notes edema improving since admission. No chest pain. No dizziness. Back pain is c ontrolled while in bed. Notes worsening pain with ambulation. No orthopnea, PND. No fever cough or chills. SOB at baseline per patient. Allergies Allergy/AdvReac Type Severity Reaction Status Date / Time carvedilol [From Coreg] AdvReac Severe shortness Unverified 02/14/21 12:34 of breath Home Medications Medication Instructions Recorded Confirmed Type amiodarone 200 mg tablet (Pacerone) 200 mg PO QAM 02/14/21 02/14/21 History aspirin 81 mg tablet,delayed 81 mg PO QAM 02/14/21 02/14/21 History release (Aspirin Low Dose) furosemide 20 mg tablet (Lasix) 20 mg PO QAM 02/14/21 02/14/21 History lisinopril 10 mg tablet (Zestril) 10 mg PO QAM 02/14/21 02/14/21 History metoprolol succinate 50 mg 50 mg PO QAM 02/14/21 02/14/21 History tablet,extended release 24 hr (Toprol XL) salmeterol 50 mcg/dose blister 1 inh INHALATION BID 02/14/21 02/14/21 History powder for inhalation (Serevent Diskus) Patient History Medical History Atrial fibrillation CAD (coronary artery disease) Congestive heart failure COPD (chronic obstructive pulmonary disease) PAD (peripheral artery disease) Surgical History Hx of CABG S/P femoral-femoral bypass surgery Family History Other Diabetes Heart disease Social History Smoking Status: Former smoker Smoking End Date: 1988; Second Hand Exposure: No; Tobacco Cessation Education Requested by Patient: No Hx Alcohol Use: Yes Alcohol type: beer Alcohol Intake Frequency: 2-4 x/Month Hx Substance Use: No Preferred Language: French Communication Ability: Effective Communication Tools: Other Attic Blower Required: Voice Beliefs That Will Affect Care: None Current Living Situation: Spouse Other Information That Helps Us Care for You: No Feels Safe at Home: Yes Safety Concerns: Feels Safe At This Time Assistive Devices: Cane and Walker Review of Systems Review of Systems: All systems reviewed & are unremarkable except as noted in HPI & below Physical Exam Constitutional: + thin; no acute distress Respiratory: Auscultation: + diminished lung sounds and + crackles (faint/scattered b/l ) Cardiovascular: Rate/Rhythm: regular rate and regular rhythm Heart Sounds: + murmur (II/ systolic) Vessels: + JVD Extremities: + edema (2+ b/l to knees) Chest (Breasts): Additional Comments: Pacer defibrillator in left upper shoulder without surrounding erythema Gastrointestinal (Abdomen): normal bowel sounds, soft, nontender, no hepatosplenomegaly Musculoskeletal: no cyanosis or clubbing, extremities motor strength 5/5 Neurologic: PERRL, EOMI, accommodation nl, no face palsy, no dysarthria Psychiatric: A+Ox3, euthymic affect Results & Data ([facility]) Vital Signs (Past 12 Hours) Vital Signs Temp Pulse Resp BP Pulse Ox 02/15/21 07:53 36.6 C 55 L 19 118/62 94 02/15/21 03:17 37.0 C 68 16 111/54 L 96 02/14/21 22:56 36.4 C L 67 16 102/66 97 Laboratory Results 02/15/21 02/15/21 02/15/21 Range/Units 06:48 06:48 06:48 WBC 4.58 L (4.8-10.8) K/uL RBC 3.67 L (4.7-6.1) M/uL Hgb 13.1 L (14.0-18.0) g/dL Hct 41.8 L (42-52) % MCV 113.9 H (80-100) fL MCH 35.7 H (25-34) pg MCHC 31.3 L (32-36) g/dL RDW Std Deviation 62.1 H (36.4-46.3) fL RDW Coeff of Patrizia 15.0 H (11.5-14.5) % Plt Count 148 (130-400) K/uL MPV 9.6 (7.4-10.4) fL Immature Gran % (Auto) % Neut % (Auto) % Lymph % (Auto) % Piute % (Auto) % Eos % (Auto) % Baso % (Auto) % Neut # (Auto) (1.4-6.5) K/uL Lymph # (Auto) (1.2-3.4) K/uL Piute # (Auto) (0.11-0.59) K/uL Eos # (Auto) (0-0.5) K/uL Baso # (Auto) (0-0.2) K/uL Immature Gran # (Auto) (0.00-0.02) K/uL Macrocytosis APTT (21.0-31.0) Seconds PTT Ratio Sodium 142 (136-145) mmol/L Potassium 5.1 (3.5-5.1) mmol/L Chloride 110 H (98-107) mmol/L Carbon Dioxide 26 (21-32) mmol/L Anion Gap 6.0 (3-11) BUN 40 H (7-18) mg/dl Creatinine 1.69 H (0.6-1.4) mg/dl Est Cr Clr Drug Dosing 37.7 ml/min Est GFR ( Amer) 43.8 ml/min Est GFR (Non-Af Amer) 37.8 ml/min BUN/Creatinine Ratio 23.5 H (10-20) Glucose 127 H (70-99) mg/dl Calcium 8.5 (8.5-10.1) mg/dl Total Bilirubin (0.2-1) mg/dl AST (15-37) U/L ALT (12-78) U/L Alkaline Phosphatase (45-117) U/L Troponin I (0-0.045) ng/ml NT-Pro-B Natriuret Pep (0-1800) pg/ml Total Protein (6.4-8.2) gm/dl Albumin (3.4-5.0) gm/dl Globulin (2.5-4.0) gm/dl Albumin/Globulin Ratio (0.9-2) Lipase (73-393) U/L Vitamin B12 1863 H (193-986) pg/ml Folate 6.20 (>5.38) ng/ml COVID-19 Eval Order SARS-CoV-2 (PCR) (Negative) 02/14/21 02/14/21 02/14/21 Range/Units 11:03 11:03 11:00 WBC (4.8-10.8) K/uL RBC (4.7-6.1) M/uL Hgb (14.0-18.0) g/dL Hct (42-52) % MCV (80-100) fL MCH (25-34) pg MCHC (32-36) g/dL RDW Std Deviation (36.4-46.3) fL RDW Coeff of Patrizia (11.5-14.5) % Plt Count (130-400) K/uL MPV (7.4-10.4) fL Immature Gran % (Auto) % Neut % (Auto) % Lymph % (Auto) % Piute % (Auto) % Eos % (Auto) % Baso % (Auto) % Neut # (Auto) (1.4-6.5) K/uL Lymph # (Auto) (1.2-3.4) K/uL Piute # (Auto) (0.11-0.59) K/uL Eos # (Auto) (0-0.5) K/uL Baso # (Auto) (0-0.2) K/uL Immature Gran # (Auto) (0.00-0.02) K/uL Macrocytosis APTT (21.0-31.0) Seconds PTT Ratio Sodium 143 (136-145) mmol/L Potassium 4.5 (3.5-5.1) mmol/L Chloride 111 H (98-107) mmol/L Carbon Dioxide 26 (21-32) mmol/L Anion Gap 6.0 (3-11) BUN 37 H (7-18) mg/dl Creatinine 1.50 H (0.6-1.4) mg/dl Est Cr Clr Drug Dosing 42.5 ml/min Est GFR ( Amer) 50.6 ml/min Est GFR (Non-Af Amer) 43.7 ml/min BUN/Creatinine Ratio 24.9 H (10-20) Glucose 97 (70-99) mg/dl Calcium 9.0 (8.5-10.1) mg/dl Total Bilirubin 1.0 (0.2-1) mg/dl AST 52 H (15-37) U/L ALT 30 (12-78) U/L Alkaline Phosphatase 162 H (45-117) U/L Troponin I < 0.015 (0-0.045) ng/ml NT-Pro-B Natriuret Pep 36618 H (0-1800) pg/ml Total Protein 6.9 (6.4-8.2) gm/dl Albumin 3.3 L (3.4-5.0) gm/dl Globulin 3.6 (2.5-4.0) gm/dl Albumin/Globulin Ratio 0.9 (0.9-2) Lipase 66 L (73-393) U/L Vitamin B12 (193-986) pg/ml Folate (>5.38) ng/ml COVID-19 Eval Order Covid19 at [facility] SARS-CoV-2 (PCR) NEGATIVE (Negative) 02/14/21 02/14/21 Range/Units 11:00 11:00 WBC 7.69 (4.8-10.8) K/uL RBC 3.77 L (4.7-6.1) M/uL Hgb 13.8 L (14.0-18.0) g/dL Hct 42.4 (42-52) % MCV 112.5 H (80-100) fL MCH 36.6 H (25-34) pg MCHC 32.5 (32-36) g/dL RDW Std Deviation 62.6 H (36.4-46.3) fL RDW Coeff of Patrizia 15.2 H (11.5-14.5) % Plt Count 159 (130-400) K/uL MPV 10.3 (7.4-10.4) fL Immature Gran % (Auto) 0.3 % Neut % (Auto) 76.1 % Lymph % (Auto) 10.3 % Piute % (Auto) 12.4 % Eos % (Auto) 0.8 % Baso % (Auto) 0.1 % Neut # (Auto) 5.86 (1.4-6.5) K/uL Lymph # (Auto) 0.79 L (1.2-3.4) K/uL Piute # (Auto) 0.95 H (0.11-0.59) K/uL Eos # (Auto) 0.06 (0-0.5) K/uL Baso # (Auto) 0.01 (0-0.2) K/uL Immature Gran # (Auto) 0.02 (0.00-0.02) K/uL Macrocytosis Present APTT 25.6 (21.0-31.0) Seconds PTT Ratio 1.0 Sodium (136-145) mmol/L Potassium (3.5-5.1) mmol/L Chloride (98-107) mmol/L Carbon Dioxide (21-32) mmol/L Anion Gap (3-11) BUN (7-18) mg/dl Creatinine (0.6-1.4) mg/dl Est Cr Clr Drug Dosing ml/min Est GFR ( Amer) ml/min Est GFR (Non-Af Amer) ml/min BUN/Creatinine Ratio (10-20) Glucose (70-99) mg/dl Calcium (8.5-10.1) mg/dl Total Bilirubin (0.2-1) mg/dl AST (15-37) U/L ALT (12-78) U/L Alkaline Phosphatase (45-117) U/L Troponin I (0-0.045) ng/ml NT-Pro-B Natriuret Pep (0-1800) pg/ml Total Protein (6.4-8.2) gm/dl Albumin (3.4-5.0) gm/dl Globulin (2.5-4.0) gm/dl Albumin/Globulin Ratio (0.9-2) Lipase (73-393) U/L Vitamin B12 (193-986) pg/ml Folate (>5.38) ng/ml COVID-19 Eval Order SARS-CoV-2 (PCR) (Negative) Diagnostic Findings Telemetry reviewed - Appears NSR with small P waves in lead II, LBBB/conduction delay. Occ Ventricular pacing EKG on admission - tracing with artifact Possible afib? Left axis deviation Left bundle branch block Repeat EKG this morning - Pending echo results reviewed dated 02/14/21 at [facility]: LV is mildly dilated septal motion is consistent with conduction abnormality severe global hypokinesis with only contractile segments being the base and mid anterior and lateral raymond. septum is akinetic, the apex dyskinetic. Apical thrombus not excluded. EF 20-25% Aortic valve sclerosis moderate, without significant aortic valvular stenosis Trace AI Moderate mitral annular calcification. Moderate MR Trace TR Medications Administered Medications amiodarone 200 mg tablet (Pacerone) 200 mg PO QAM 02/14/21 [History Confirmed 02/14/21] aspirin 81 mg tablet,delayed release (Aspirin Low Dose) 81 mg PO QAM 02/14/21 [History Confirmed 02/14/21] furosemide 20 mg tablet (Lasix) 20 mg PO QAM 02/14/21 [History Confirmed 02/14/21] lisinopril 10 mg tablet (Zestril) 10 mg PO QAM 02/14/21 [History Confirmed 02/14/21] metoprolol succinate 50 mg tablet,extended release 24 hr (Toprol XL) 50 mg PO QAM 02/14/21 [History Confirmed 02/14/21] salmeterol 50 mcg/dose blister powder for inhalation (Serevent Diskus) 1 inh INHALATION BID 02/14/21 [History Confirmed 02/14/21] Home Medications Acetaminophen (Acetaminophen 500 Mg Tab) 1,000 mg PO Q8H PRN PRN Reason: Pain or Fever Stop: 03/16/21 16:41 Amiodarone HCl ([facility] 200 Mg Tab) [facility] [place]: 03/17/21 08:59 Last Admin: 02/15/21 08:37 Dose: Not Given Documented by: Aspirin (Aspirin 81 Mg Ectab) 81 [facility] [place]: 03/17/21 08:59 Last Admin: 02/15/21 08:30 Dose: 81 mg Documented by: Atorvastatin Calcium (Atorvastatin 40 Mg Tab) 40 [facility] [place]: 03/17/21 08:59 Last Admin: 02/15/21 08:30 Dose: 40 mg Documented by: Heparin Sodium (Porcine) (Heparin Sod 5,000 Unit/0.5 Ml Vial) 5,000 units SQ Q8 DALJIT Stop: 03/16/21 16:41 Last Admin: 02/15/21 06:22 Dose: 5,000 units Documented by: Furosemide 40 mg/ Syringe 4 mls @ 4 mls/min IV DAILY DALJIT Stop: 03/17/21 08:59 Last Admin: 02/15/21 08:30 Dose: 4 mls/min Documented by: Lidocaine (Lidocaine 5% 1 Patch) 1 patch TD HS DALJIT Stop: 03/16/21 20:59 Last Admin: 02/15/21 08:31 Dose: Not Given Documented by: Lisinopril (Lisinopril 10 Mg Tab) 10 mg PO QAM DALJIT Stop: 03/17/21 08:59 Last Admin: 02/15/21 08:28 Dose: 10 mg Documented by: Metoprolol Succinate (Metoprolol Succ 50mg Ext Rel Tab) 50 mg PO QAM DALJIT Stop: 03/17/21 08:59 Last Admin: 02/15/21 08:36 Dose: Not Given Documented by: Miscellaneous (Remove Lidoderm Patch) 1 ea N/A DAILY DALJIT Stop: 03/17/21 08:59 Last Admin: 02/15/21 08:31 Dose: Not Given Documented by: Olodaterol (Olodaterol Hcl 2.5mcg/Actuation 60 Puffs/Inhaler) 2 puffs INH DAILY DALJIT; Protocol Stop: 03/17/21 08:59 Last Admin: 02/15/21 08:31 Dose: 2 puffs Documented by: Ondansetron HCl (Ondansetron Inj 2 Mg/Ml 2 Ml Vial) 4 mg IV Q6H PRN PRN Reason: Nausea Stop: 03/16/21 16:41 Polyethylene Glycol (Polyethylene (Miralax) 17 Gm Pack) 17 gm PO DAILY PRN PRN Reason: Constipation Stop: 03/16/21 16:41 (1) Back fracture Encounter type: initial encounter Fracture of vertebra location: lumbar
[2021-02-15] MEDS ORDERED: FUROSEMIDE 40 MG/4 ML VIAL IV SCH (09:00)
--- NOTE | 2021-02-15 10:49 | Consultation ---
Date of Consultation February 15, 2021 Assessment & Plan (1) Lumbar compression fracture: Dr. Sawant has reviewed imaging as well as history. Patient is a very poor surgical candidate in light of his acute medical issues (hypoxia/CHF). Because of his hypoxia and pre-existing lung issues he is also a very poor candidate for bracing. He would not tolerate how constrictive a TLSO brace is. I Would recommend conservative treatment. Ambulate ad ephraim. No lifting greater than 5 pounds. Agree with physical therapy. Continue with pain control. This plan has been reviewed with Mr. Dunaway who expressed understanding and agreement. Supervising Physician Co-Signing Physician Notes Dr. Jaguar Sawant History of Present Illness Reason for Consultation: Lumbar compression fracture Attending Physician: Laura James MD History of Present Illness This is a pleasant 80-year-old gentleman who states he has had acute on chronic lower back pain. He is a bit of a poor historian. He has had multiple falls. Typically he ambulates with either a cane or a walker at home. He lives with his . Denies radicular lower extremity pain, paresthesia, numbness or weakness. Takes Tylenol at home for pain only. Has had multiple falls but is unable to give me a specific timeline. He states pain is present with sitting, walking, standing, lying down. He reports he has seen Dr. Sawant many many years ago who did not recommend aggressive surgical intervention at that point time. He has been admitted with hypoxia and decompensated heart failure. Allergies Allergy/AdvReac Type Severity Reaction Status Date / Time carvedilol [From Coreg] AdvReac Severe shortness Unverified 02/14/21 12:34 of breath Home Medications Medication Instructions Recorded Confirmed Type amiodarone 200 mg tablet (Pacerone) 200 mg PO QAM 02/14/21 02/14/21 History aspirin 81 mg tablet,delayed 81 mg PO QAM 02/14/21 02/14/21 History release (Aspirin Low Dose) furosemide 20 mg tablet (Lasix) 20 mg PO QAM 02/14/21 02/14/21 History lisinopril 10 mg tablet (Zestril) 10 mg PO QAM 02/14/21 02/14/21 History metoprolol succinate 50 mg 50 mg PO QAM 02/14/21 02/14/21 History tablet,extended release 24 hr (Toprol XL) salmeterol 50 mcg/dose blister 1 inh INHALATION BID 02/14/21 02/14/21 History powder for inhalation (Serevent Diskus) Patient History Medical History Atrial fibrillation CAD (coronary artery disease) Congestive heart failure COPD (chronic obstructive pulmonary disease) PAD (peripheral artery disease) Surgical History Hx of CABG S/P femoral-femoral bypass surgery Family History Other Diabetes Heart disease Social History Smoking Status: Former smoker Smoking End Date: 1988; Second Hand Exposure: No; Tobacco Cessation Education Requested by Patient: No Hx Alcohol Use: Yes Alcohol type: beer Alcohol Intake Frequency: 2-4 x/Month Hx Substance Use: No Preferred Language: Greek Communication Ability: Effective Communication Tools: Other Cyber Incident Responder Required: Voice Beliefs That Will Affect Care: None Current Living Situation: Spouse Other Information That Helps Us Care for You: No Feels Safe at Home: Yes Safety Concerns: Feels Safe At This Time Assistive Devices: Cane and Walker Review of Systems Review of Systems: All systems reviewed & are unremarkable except as noted in HPI & below Physical Exam Physical Exam: He sitting up in bed No acute distress he is tender to occlusion of the bilateral sacroiliac notches. Nontender to palpation percussion to the midline thoracic and lumbar spine. Has breakaway weakness over the left quadricep and hamstring. Otherwise strength is intact bilaterally. Negative logrolling bilaterally. Constitutional: + thin Eyes: PERRL, conjunctivae normal, anicteric sclerae ENMT: external ear and nose normal, oropharynx normal Neck: normal visual inspection Gastrointestinal (Abdomen): Inspection/Auscultation: abdomen normal to inspection Musculoskeletal: Spine: + sciatic notch tenderness Skin: no rashes, warm and dry Neurologic: normal touch/pain/proprioception and moves all extremities Psychiatric: A+Ox3, euthymic affect Orientation: cooperative Results & Data ([facility]) Vital Signs (Past 12 Hours) Vital Signs Temp Pulse Pulse Resp BP Pulse Ox 02/15/21 08:00 50 L 02/15/21 07:53 36.6 C 55 L 19 118/62 94 02/15/21 03:17 37.0 C 68 16 111/54 L 96 02/14/21 22:56 36.4 C L 67 16 102/66 97 Diagnostic Findings [facility], [id number] CT Scan Report Patient: HOLLEY DUNAWAY Date: 02/14/21MR#: [id number]: [id number] RICH[address] RDAcct ID:[id number]: Date: 1940[facility] Zip: [id number]: [id number]: EDSex: MRoom/Bed:Att Phy:Diagnosis: SEVERE BACK PAINPri Phy: Vita Wright DOService Date: 02/14/21Fam Phy:Interpreting Phy: Richard Fink MDAdmit Phy: Ordering Phy: Dylan Arvizu, cc: ~ CT SCAN OF THE LUMBAR SPINE WITHOUT IV CONTRAST CLINICAL HISTORY: Low back pain. COMPARISON STUDY: CT of the lumbar spine dated 09/09/2012. TECHNIQUE: CT scan of the lumbar spine is performed from the lower thoracic spine to the sacrum. Images are reviewed in the axial, sagittal, and coronal planes. IV contrast was not administered for this examination. A dose lowering technique was utilized adhering to the principles of ALARA. CT DOSE: 726.73 mGy.cm FINDINGS: The skeletal structures are osteopenic. There is a moderate superior endplate compression deformity of L4. There are minimally retropulsed fragments at this level by up to 4 mm. There is a mild superior endplate compression deformity of L2 with no retropulsed fragments seen. These are age-indeterminate but new from 09/09/2012. The L2 fracture may be acute to subacute and there is paravertebral edema. A minimal chronic superior endplate compression deformity of L1 is unchanged from 2013. Vertebral body height is otherwise maintained throughout the lumbar spine. Alignment is preserved. The transverse and spinous processes appear intact. There is no spondylolysis. No lytic or blastic lesion is seen. There is moderate disc space narrowing at L4-L5 and L5-S1. Endplate sclerosis is seen at L5-S1. Posterior disc osteophyte complexes are seen at all lumbar levels from L2 -L3 through L5-S1 and may contribute to mild acquired compromise of the central canal. A right lateral disc extrusion at L4-L5 may impinge on the exiting right L4 nerve root. This is best seen on axial image #302. Facet arthropathy is noted in the mid to lower lumbar region. The visualized sacrum and bony pelvis appear intact. There is fatty atrophy of the paraspinous musculature. Calcific pleural plaques are seen at both lung bases. Bilateral pleural effusions are partially imaged. There is advanced atherosclerotic calcification and ectasia of the abdominal aorta. A saccular aneurysm on image #192 measures up to 2 cm. No retroperitoneal lymphadenopathy is seen. An exophytic cyst is partially visualized arising from the left kidney. There is a 6 mm nonobstructing right renal calculus. Trace ascites is noted in the pelvis. IMPRESSION: 1. There is a mild compression deformity of L2 which is new from 09/09/2012. This may be acute to subacute and there is mild paravertebral edema at this level. Correlate for point tenderness. 2. A moderate superior endplate compression deformity of L4 is also new from 09/09/2012. This is age-indeterminate but likely chronic. 3. A minimal superior endplate compression deformity of L1 is unchanged from 2013. 4. A right lateral disc extrusion at L4-L5 may impinge on the exiting right L4 nerve root. 5. Osteopenia with additional spondylotic and degenerative changes as above. 6. Bilateral pleural effusions are partially visualized. 7. Right-sided nephrolithiasis. 8. 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 9. A small volume of pelvic ascites is partially imaged. ACT 112: Negative or not required by law. Dictated: 02/14/2021 10:52 AM Transcribed: 02/14/2021 11:37 AM [place] [id number] [facility] Electronically signed by: Richard Fink M.D. 02/14/2021 11:41 AM Dictated: 02/14/21 [id number]: 02/14/21 1137
[2021-02-15] MEDS ORDERED: LIDOCAINE 5% 1 PATCH TD SCH (14:00)
--- NOTE | 2021-02-15 15:28 | Hospitalist Progress Note ---
Date of Service February 15, 2021 Assessment & Plan (1) Acute respiratory failure with hypoxia: Plan: This is a 80yo M with a PMH of CAD (s/p CABG in 1994 in [place]), PAD (s/p bilateral femoral stents), COPD, atrial fibrillation and other medical problems listed below who presents with worsening back pain over the past week and was found to have acute hypoxia and decompensated heart failure as well as compression deformity of L2. Initially hypoxic at 83%, improved to 97% on 2L NC In setting of decompensated heart failure Patient did not feel SOB at 83% initially - possibly hypoxic at baseline Would benefit from 2 step at discharge if oxygenation does not improve with diuresis Minimally shortness of breath at rest He has been saturating well with 2 L of nasal cannula oxygen Possible CKD Creatinine noted to be high at 1.50 on admission and he has not been here before Could be secondary to dehydration and ELIECER Await records from [place] to designate this as CKD Has been getting Lasix We will monitor PRP (2) Decompensated heart failure: Plan: Acute on chronic systolic heart failure CXR with small left pleural effusion with left lung base opacities suggestive of atelectasis versus pneumonia. Cardiomegaly with pulmonary vascular congestion Pro-BNP 19,578, troponin wnl, ECG with wide QRS complexes with PVCs, LAD and LBBB (no EKGs available for comparison) Given 40mg IV Lasix in ED and continue 40 mg IV daily Echo : LV is mildly dilated, septal motion is consistent with conduction abnormality, severe global hypokinesis with only contractile segments being the base and the mid anterior and lateral raymond. The septum is akinetic, the apex is dyskinetic. Apical thrombus is not excluded. EF 20 to 25%. Aortic valve sclerosis moderate without significant stenosis. Trace aortic regurgitation, moderate mitral calcification with moderate MR and trace TR Appreciate cardiology input and recommendation-awaiting records from cardiology office from [place] Feels a little bit better since admission We will continue current management (3) Lumbar compression fracture: Plan: Appreciate spine surgery input and recommendation Given his poor medical condition TLSO was not prescribed and conservative management advised Has been getting lidocaine patch and will put on diclofenac gel Try to avoid any narcotics (4) Ambulatory dysfunction: Plan: History of spinal stenosis, worsening pain and ambulatory dysfunction over the past month since fall CT lumbar spine with * 1. There is a mild compression deformity of L2 which is new from 09/09/2012. This may be acute to subacute and there is mild paravertebral edema at this level. Correlate for point tenderness. 2. A moderate superior endplate compression deformity of L4 is also new from 09/09/2012. This is age-indeterminate but likely chronic. 3. A minimal superior endplate compression deformity of L1 is unchanged from 2013. 4. A right lateral disc extrusion at L4-L5 may impinge on the exiting right L4 nerve root. Given 8mg IV Dexamethasone in ER Adding Lidocaine patch and scheduled Tylenol Fall precautions (5) CAD (coronary artery disease): Plan: History of CABG in 1994 at [place], follows with Dr. Holm of [facility] cardiology Has ICD placed No chest pain since admission Continue aspirin, Toprol Previously noncompliant with statin - agreeable to resume Will request OP records (6) COPD (chronic obstructive pulmonary disease): Plan: Quit smoking in 1988. Not on home O2. COPD appears to be at baseline. Continue Salmeterol inh BID (7) Atrial fibrillation: Plan: Continue amiodarone. Not on anticoagulation Rate is controlled (8) PAD (peripheral artery disease): Plan: H/o vascular intervention of femoral A. bilaterally per patient at [facility]. Planning to resume statin, continue aspirin (9) Macrocytic anemia: Plan: Hgb 13.8, MCV 112.5 - longstanding alcohol use B12 and folate labs pending for AM DVT Ppx: SQ heparin Code status: FULL PCP: [facility] (JARRETT Crouch) Dispo: Admitted to PCU. Discharge planning ordered Admission and Anticipated Discharge Date Admission Date: February 14, 2021 Subjective 02/15/2021 The patient was seen and examined in telemetry unit He has been feeling a little bit better since admission Still has mild shortness of breath at rest without any chest pain and or palpitation, Complains some back pain without radiation Review of Systems Review of Systems: All systems reviewed and are unremarkable except as noted below Respiratory: Mild to moderate shortness of breath at rest Cardiovascular: Additional Comments: No chest pain Musculoskeletal: Complains lower back pain Physical Exam Physical Exam: Lying in bed with minimal distress Constitutional: + acute distress (Minimal distress at rest), + ill appearing and + thin Eyes: PERRL, conjunctivae normal, anicteric sclerae ENMT: external ear and nose normal, oropharynx normal Neck: trachea midline, no thyromegaly Respiratory: + respiratory distress (Minimal shortness of breath at rest); no labored breathing Auscultation: + diminished lung sounds and + crackles (Bibasilar crackles); no wheezes Cardiovascular: Rate/Rhythm: + irregularly irregular; not tachycardic Heart Sounds: normal S1, normal S2 and + murmur (2/6 ESM over precordium) Gastrointestinal (Abdomen): Inspection/Auscultation: normal bowel sounds; abdomen not distended Percussion/Palpation: abdomen soft; abdomen nontender Musculoskeletal: Has low back pain with tenderness. No acute arthritis in any joint Neurologic: Alert, awake and oriented x3. No focal sensory or motor deficit appreciated Results & Data Results & Data ([facility]) Vital Signs (Past 12 Hours) Vital Signs Temp Pulse Pulse Resp BP Pulse Ox 02/15/21 12:08 37.0 C 56 L 18 124/60 99 02/15/21 08:00 50 L 02/15/21 07:53 36.6 C 55 L 19 118/62 94 Laboratory Results Short CBC 02/15/21 Range/Units 06:48 WBC 4.58 L (4.8-10.8) K/uL Hgb 13.1 L (14.0-18.0) g/dL Hct 41.8 L (42-52) % Plt Count 148 (130-400) K/uL BMP 02/15/21 06:48 Sodium 142 Potassium 5.1 Chloride 110 H Carbon Dioxide 26 BUN 40 H Creatinine 1.69 H Glucose 127 H Calcium 8.5 Medications Administered Current Inpatient Medications Acetaminophen (Acetaminophen 500 Mg Tab) 1,000 mg PO Q8H PRN PRN Reason: Pain or Fever Stop: 03/16/21 16:41 Amiodarone HCl (Amiodarone 200 Mg Tab) 200 mg PO [facility] Stop: 03/17/21 08:59 Last Admin: 02/15/21 09:41 Dose: 200 mg Documented by: Aspirin (Aspirin 81 Mg Ectab) [facility] Stop: 03/17/21 08:59 Last Admin: 02/15/21 08:30 Dose: 81 mg Documented by: Atorvastatin Calcium (Atorvastatin 40 Mg Tab) 40 mg PO [facility] Stop: 03/17/21 08:59 Last Admin: 02/15/21 08:30 Dose: 40 mg Documented by: Diclofenac Sodium (Diclofenac Sod 1% Gel 100 Gm Tube) 2 gm EXT QID [facility] Stop: 03/17/21 16:59 Heparin Sodium (Porcine) (Heparin Sod 5,000 Unit/0.5 Ml Vial) 5,000 units SQ Q8 [facility] Stop: 03/16/21 16:41 Last Admin: 02/15/21 13:54 Dose: 5,000 units Documented by: Furosemide 40 mg/ Syringe 4 mls @ 4 mls/min IV DAILY [facility] Stop: 03/17/21 08:59 Last Admin: 02/15/21 08:30 Dose: 4 mls/min Documented by: Lidocaine (Lidocaine 5% 1 Patch) 1 patch TD HS [facility] Stop: 02/15/21 20:59 Last Admin: 02/15/21 08:31 Dose: Not Given Documented by: Lisinopril (Lisinopril 10 Mg Tab) 10 mg PO QAM [facility] Stop: 03/17/21 08:59 Last Admin: 02/15/21 08:28 Dose: 10 mg Documented by: Metoprolol Succinate (Metoprolol Succ 50mg Ext Rel Tab) 50 mg PO QAM [facility] Stop: 03/17/21 08:59 Last Admin: 02/15/21 09:41 Dose: 50 mg Documented by: Olodaterol (Olodaterol Hcl 2.5mcg/Actuation 60 Puffs/Inhaler) 2 puffs INH DAILY [facility]; Protocol Stop: 03/17/21 08:59 Last Admin: 02/15/21 08:31 Dose: 2 puffs Documented by: Ondansetron HCl (Ondansetron Inj 2 Mg/Ml 2 Ml Vial) 4 mg IV Q6H PRN PRN Reason: Nausea Stop: 03/16/21 16:41 Polyethylene Glycol (Polyethylene (Miralax) 17 Gm Pack) 17 gm PO DAILY PRN PRN Reason: Constipation Stop: 03/16/21 16:41
[2021-02-15] MEDS: DICLOFENAC SOD 1% GEL 100 GM TUBE EXT SCH ×2 (17:37→20:22)
[2021-02-16] MEDS: HEPARIN SOD 5,000 UNIT/0.5 ML VIAL SQ SCH ×3 (06:16→21:00)
[2021-02-16 07:19] LABS: Eosinophils # (auto) 0.03 K/uL (0-0.5); Eosinophils % (auto) 0.3 %; Hematocrit (blood only) 39.5 % (42-52); Hemoglobin 12.5 g/dL (14.0-18.0); Immature Granulocytes # (auto) 0.03 K/uL (0.00-0.02); Immature Granulocytes % (auto) 0.3 %; Lymphocytes # (auto) 0.95 K/uL (1.2-3.4); Lymphocytes % (auto) 9.9 %; Mean Corpuscular Hemoglobin 35.4 pg (25-34); Mean Corpuscular Hgb Conc 31.6 g/dL (32-36); Mean Corpuscular Volume 111.9 fL (80-100); Mean Platelet Volume 10.1 fL (7.4-10.4); Monocytes # (auto) 1.06 K/uL (0.11-0.59); Monocytes % (auto) 11.1 %; Neutrophils # (auto) 7.52 K/uL (1.4-6.5); Neutrophils % (auto) 78.4 %; Platelet Count 179 K/uL (130-400); RDW Coefficient of Variation 15.3 % (11.5-14.5); RDW Standard Deviation 63.1 fL (36.4-46.3); Red Blood Count 3.53 M/uL (4.7-6.1); White Blood Count 9.59 K/uL (4.8-10.8)
[2021-02-16 07:47] LABS: Albumin Level 2.7 gm/dl (3.4-5.0); BUN Creatinine Ratio 29.9 (10-20); Calcium 8.1 mg/dl (8.5-10.1); Creatinine Clr Calc Pharmacy 37.1 ml/min; Est GFR (African American) 42.9 ml/min; Magnesium 2.1 mg/dl (1.8-2.4)
[2021-02-16 07:49] LABS: Albumin Globulin Ratio 0.8 (0.9-2); Bilirubin,Total 0.8 mg/dl (0.2-1); Globulin 3.2 gm/dl (2.5-4.0); Phosphorus 3.5 mg/dl (2.5-4.9); Total Protein 5.9 gm/dl (6.4-8.2)
[2021-02-16] MEDS: lisinopril 10 MG TAB PO SCH (08:00)
[2021-02-16] MEDS: FUROSEMIDE 40 MG in SYRINGE 0 ML IV SCH (08:00)
[2021-02-16] MEDS: METOPROLOL SUCC 50MG EXT REL TAB PO SCH (08:00)
[2021-02-16] MEDS: ATORVASTATIN 40 MG TAB PO SCH (08:00)
[2021-02-16] MEDS: AMIODARONE 200 MG TAB PO SCH (08:00)
[2021-02-16] MEDS: ASPIRIN 81 MG ECTAB PO SCH (08:01)
[2021-02-16] MEDS: DICLOFENAC SOD 1% GEL 100 GM TUBE EXT SCH ×4 (08:01→20:59)
[2021-02-16] MEDS: OLODATEROL HCL 2.5MCG/ACTUATION 60 PUFFS/INHALER INH SCH (08:02)
[2021-02-16 08:50] LABS: Macrocytosis Present
--- NOTE | 2021-02-16 09:42 | Cardiology Progress Note ---
Date of Service February 16, 2021 Assessment & Plan (1) Acute on chronic systolic heart failure: (2) CAD (coronary artery disease): (3) Acute respiratory failure with hypoxia: (4) Back fracture: (5) Atrial fibrillation: Plan: Patient presenting for back pain, found to be in acute on chronic systolic HF with evidence of volume overload. He follows with outside cardiology group and records have been requested but not received. 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 He has ICD in place. Patient reporting good diuresis since admission. (Unsure if I+O's are being measured). Recommendations: Continue Furosemide 40 mg IV daily. Creatinine trending slightly higher, 1.5 on admission and 1.7 this morning. Unsure of baseline. Monitor renal function and electrolytes Daily weight Monitor I+O's Continue home medications including amiodarone, ASA, lisinopril and metoprolol succinate. Oral furosemide on hold. Statin resumed. Will review records when available from his primary cardiology office in [place], including office notes, last ICD interrogation (tree wrapper unknown at this time), and last echo. In regards to back pain, conservative therapies would be recommended as he is high risk for intervention given his cardiac status. Case discussed with Dr. Hill. Will follow. Admission and Anticipated Discharge Date Admission Date: February 14, 2021 Supervising Physician Co-Signing Physician Notes Patient was seen and examined, chart and medications reviewed. Full assessment as above. Patient has demonstrated clinical improvement with IV diuretics, bedrest. We will continue IV diuretics today hold after am dose and reassess in a.m. Subjective Patient resting in bed. Notes ongoing SOB with minimal exertion, but improved from admission. Edema remains present, but improved from admission, per patient. Urinating frequently. No chest pain. No dizziness, syncope or near syncope. Back pain is tolerable. Review of Systems Review of Systems: All systems reviewed & are unremarkable except as noted in HPI & below Physical Exam Constitutional: + thin; no acute distress Eyes: PERRL, conjunctivae normal, anicteric sclerae Neck: trachea midline, no thyromegaly Respiratory: Auscultation: + diminished lung sounds and + crackles (faint/scattered b/l ) Cardiovascular: Rate/Rhythm: regular rate and regular rhythm Heart Sounds: + murmur (II/ systolic) Vessels: + JVD Extremities: + edema (2+ b/l to knees) Gastrointestinal (Abdomen): normal bowel sounds, soft, nontender, no hepatosplenomegaly Musculoskeletal: no cyanosis or clubbing, extremities motor strength 5/5 Skin: no rashes, warm and dry Neurologic: PERRL, EOMI, accommodation nl, no face palsy, no dysarthria Psychiatric: A+Ox3, euthymic affect Results & Data ([facility]) Vital Signs (Past 12 Hours) Vital Signs Temp Pulse Resp BP Pulse Ox 02/16/21 07:53 36.6 C 65 19 101/62 93 02/16/21 02:47 36.5 C 66 17 101/62 95 Laboratory Results 02/16/21 02/16/21 02/15/21 Range/Units 06:56 06:56 06:48 WBC 9.59 (4.8-10.8) K/uL RBC 3.53 L (4.7-6.1) M/uL Hgb 12.5 L (14.0-18.0) g/dL Hct 39.5 L (42-52) % MCV 111.9 H (80-100) fL MCH 35.4 H (25-34) pg MCHC 31.6 L (32-36) g/dL RDW Std Deviation 63.1 H (36.4-46.3) fL RDW Coeff of Patrizia 15.3 H (11.5-14.5) % Plt Count 179 (130-400) K/uL MPV 10.1 (7.4-10.4) fL Immature Gran % (Auto) 0.3 % Neut % (Auto) 78.4 % Lymph % (Auto) 9.9 % [place] % (Auto) 11.1 % Eos % (Auto) 0.3 % Baso % (Auto) 0.0 % Neut # (Auto) 7.52 H (1.4-6.5) K/uL Lymph # (Auto) 0.95 L (1.2-3.4) K/uL [place] # (Auto) 1.06 H (0.11-0.59) K/uL Eos # (Auto) 0.03 (0-0.5) K/uL Baso # (Auto) 0.00 (0-0.2) K/uL Immature Gran # (Auto) 0.03 H (0.00-0.02) K/uL Macrocytosis Present Sodium 139 (136-145) mmol/L Potassium 5.0 (3.5-5.1) mmol/L Chloride 110 H (98-107) mmol/L Carbon Dioxide 26 (21-32) mmol/L Anion Gap 3.0 (3-11) BUN 51 H (7-18) mg/dl Creatinine 1.72 H (0.6-1.4) mg/dl Est Cr Clr Drug Dosing 37.1 ml/min Est GFR ( Amer) 42.9 ml/min Est GFR (Non-Af Amer) 37.0 ml/min BUN/Creatinine Ratio 29.9 H (10-20) Glucose 91 (70-99) mg/dl Calcium 8.1 L (8.5-10.1) mg/dl Phosphorus 3.5 (2.5-4.9) mg/dl Magnesium 2.1 (1.8-2.4) mg/dl Total Bilirubin 0.8 (0.2-1) mg/dl AST 56 H (15-37) U/L ALT 32 (12-78) U/L Alkaline Phosphatase 168 H (45-117) U/L Total Protein 5.9 L (6.4-8.2) gm/dl Albumin 2.7 L (3.4-5.0) gm/dl Globulin 3.2 (2.5-4.0) gm/dl Albumin/Globulin Ratio 0.8 L (0.9-2) TSH 1.560 (0.300-4.500) uIu/ml Diagnostic Findings EKG from yesterday, 02/15 appears NSR (P waves in lead I), LBBB Telemetry reviewed - Sinus bradycardia, small P waves noted in leads I, II. conduction delay consistent with LBBB. Medications Administered Current Inpatient Medications Acetaminophen (Acetaminophen 500 Mg Tab) 1,000 mg PO Q8H PRN PRN Reason: Pain or Fever Stop: 03/16/21 16:41 Amiodarone HCl (Amiodarone 200 Mg Tab) 200 mg PO [facility] Stop: 03/17/21 08:59 Last Admin: 02/16/21 08:00 Dose: 200 mg Documented by: Aspirin (Aspirin 81 Mg Ectab) [facility] Stop: 03/17/21 08:59 Last Admin: 02/16/21 08:01 Dose: 81 mg Documented by: Atorvastatin Calcium (Atorvastatin 40 Mg Tab) 40 mg PO QAM [facility] Stop: 03/17/21 08:59 Last Admin: 02/16/21 08:00 Dose: 40 mg Documented by: Diclofenac Sodium (Diclofenac Sod 1% Gel 100 Gm Tube) 2 gm EXT QID [facility] Stop: 03/17/21 16:59 Last Admin: 02/16/21 08:01 Dose: Not Given Documented by: Heparin Sodium (Porcine) (Heparin Sod 5,000 Unit/0.5 Ml Vial) 5,000 units SQ Q8 [facility] Stop: 03/16/21 16:41 Last Admin: 02/16/21 06:16 Dose: 5,000 units Documented by: Furosemide 40 mg/ Syringe 4 mls @ 4 mls/min IV DAILY [facility] Stop: 03/17/21 08:59 Last Admin: 02/16/21 08:00 Dose: 4 mls/min Documented by: Lisinopril (Lisinopril 10 Mg Tab) 10 mg PO QAM [facility] Stop: 03/17/21 08:59 Last Admin: 02/16/21 08:00 Dose: 10 mg Documented by: Metoprolol Succinate (Metoprolol Succ 50mg Ext Rel Tab) 50 mg PO QAM [facility] Stop: 03/17/21 08:59 Last Admin: 02/16/21 08:00 Dose: 50 mg Documented by: Olodaterol (Olodaterol Hcl 2.5mcg/Actuation 60 Puffs/Inhaler) 2 puffs INH DAILY [facility]; Protocol Stop: 03/17/21 08:59 Last Admin: 02/16/21 08:02 Dose: 2 puffs Documented by: Ondansetron HCl (Ondansetron Inj 2 Mg/Ml 2 Ml Vial) 4 mg IV Q6H PRN PRN Reason: Nausea Stop: 03/16/21 16:41 Polyethylene Glycol (Polyethylene (Miralax) 17 Gm Pack) 17 gm PO DAILY PRN PRN Reason: Constipation Stop: 03/16/21 16:41 (1) Back fracture Encounter type: initial encounter Fracture of vertebra location: lumbar
--- NOTE | 2021-02-16 13:24 | Hospitalist Progress Note ---
Date of Service February 16, 2021 Assessment & Plan (1) Acute respiratory failure with hypoxia: Plan: This is a 80yo M with a PMH of CAD (s/p CABG in 1994 in [place]), PAD (s/p bilateral femoral stents), COPD, atrial fibrillation and other medical problems listed below who presents with worsening back pain over the past week and was found to have acute hypoxia and decompensated heart failure as well as compression deformity of L2. Initially hypoxic at 83%, improved to 97% on 2L NC In setting of decompensated heart failure Patient did not feel SOB at 83% initially - possibly hypoxic at baseline Would benefit from 2 step at discharge if oxygenation does not improve with diuresis Minimally shortness of breath at rest He has been saturating well with 2 L of nasal cannula oxygen Possible new onset CKD or ELIECER Creatinine noted to be high at 1.50 on admission and he has not been here before Could be secondary to dehydration and ELIECER Await records from [place] to designate this as CKD. Getting today at 1.7 from 1.5 on admission in the setting of diuresis. Monitor daily BMP. (2) Decompensated heart failure: Plan: Acute on chronic systolic heart failure CXR with small left pleural effusion with left lung base opacities suggestive of atelectasis versus pneumonia. Cardiomegaly with pulmonary vascular congestion Pro-BNP 19,578, troponin wnl, ECG with wide QRS complexes with PVCs, LAD and LBBB (no EKGs available for comparison) Echo : LV is mildly dilated, septal motion is consistent with conduction abnormality, severe global hypokinesis with only contractile segments being the base and the mid anterior and lateral raymond. The septum is akinetic, the apex is dyskinetic. Apical thrombus is not excluded. EF 20 to 25%. Aortic valve sclerosis moderate without significant stenosis. Trace aortic regurgitation, moderate mitral calcification with moderate MR and trace TR Appreciate cardiology input and recommendation-awaiting records from cardiology office from [place] Continue with IV Lasix 40 mg daily. Continue to monitor ins and outs along with daily weights. (3) Lumbar compression fracture: Plan: Appreciate spine surgery input and recommendation Given his poor medical condition TLSO was not prescribed and conservative management advised Has been getting lidocaine patch and on diclofenac gel Try to avoid any narcotics (4) Ambulatory dysfunction: Plan: History of spinal stenosis, worsening pain and ambulatory dysfunction over the past month since fall CT lumbar spine with * 1. There is a mild compression deformity of L2 which is new from 09/09/2012. This may be acute to subacute and there is mild paravertebral edema at this level. Correlate for point tenderness. 2. A moderate superior endplate compression deformity of L4 is also new from 09/09/2012. This is age-indeterminate but likely chronic. 3. A minimal superior endplate compression deformity of L1 is unchanged from 2013. 4. A right lateral disc extrusion at L4-L5 may impinge on the exiting right L4 nerve root. Given 8mg IV Dexamethasone in ER Adding Lidocaine patch and scheduled Tylenol Fall precautions (5) CAD (coronary artery disease): Plan: History of CABG in 1994 at [place], follows with Dr. Holm of [facility] cardiology Has ICD placed No chest pain since admission Continue aspirin, Toprol Previously noncompliant with statin - agreeable to resume Will request OP records (6) COPD (chronic obstructive pulmonary disease): Plan: Quit smoking in 1988. Not on home O2. COPD appears to be at baseline. Continue Salmeterol inh BID (7) Atrial fibrillation: Plan: Continue amiodarone. Not on anticoagulation Rate is controlled (8) PAD (peripheral artery disease): Plan: H/o vascular intervention of femoral A. bilaterally per patient at [facility]. Planning to resume statin, continue aspirin (9) Macrocytic anemia: Plan: Hgb 13.8, MCV 112.5 - longstanding alcohol use B12 and folate labs pending for AM DVT Ppx: SQ heparin Code status: FULL PCP: [facility] (JARRETT Crouch) Dispo: Admitted to PCU. Discharge planning ordered Admission and Anticipated Discharge Date Admission Date: February 14, 2021 Subjective Patient is awake and alert. He is oriented to time and person but not place. Reports shortness of breath is about the same. Currently remains on 2 L of nasal cannula. Adequate urine output. Denies any chest pain, palpitations or any dizziness. Denies any abdominal pain, nausea or any vomiting. Rest of the review of system is negative. Review of Systems Review of Systems: All systems reviewed & are unremarkable except as noted in HPI & below Physical Exam Physical Exam: General: A&Ox2 HENT: NCAT, MMM, EOMI Eyes: PERRLA Neck: Supple, normal range of motion CVS: normal rate and rhythm Resp: b/l devrease breadth sounds Abdomen: Soft, ND/NT, +BS Extremities: No c/c/e Neuro: face symmetric, no focal deficit appreciated Skin: warm and dry, no rashes/lesions/errythema MSK: normal ROM, no joint swelling/erythema Results & Data Results & Data ([facility]) Vital Signs (Past 12 Hours) Vital Signs Temp Pulse Resp BP Pulse Ox 02/16/21 12:14 36.4 C L 64 20 103/61 91 02/16/21 07:53 36.6 C 65 19 101/62 93 02/16/21 02:47 36.5 C 66 17 101/62 95
[2021-02-16] MEDS: ALBUT/IPRATROP 3MG/0.5MG NEB 3 ML VIAL NEB PRN (20:13)
[2021-02-17] MEDS: HEPARIN SOD 5,000 UNIT/0.5 ML VIAL SQ SCH ×3 (06:11→21:34)
[2021-02-17 06:31] LABS: Eosinophils % (auto) 1.7 %; Hematocrit (blood only) 36.8 % (42-52); Hemoglobin 11.6 g/dL (14.0-18.0); Immature Granulocytes # (auto) 0.01 K/uL (0.00-0.02); Immature Granulocytes % (auto) 0.2 %; Lymphocytes # (auto) 0.91 K/uL (1.2-3.4); Lymphocytes % (auto) 15.1 %; Mean Corpuscular Hemoglobin 35.3 pg (25-34); Mean Corpuscular Hgb Conc 31.5 g/dL (32-36); Mean Corpuscular Volume 111.9 fL (80-100); Mean Platelet Volume 10.3 fL (7.4-10.4); Monocytes # (auto) 0.77 K/uL (0.11-0.59); Monocytes % (auto) 12.8 %; Neutrophils # (auto) 4.24 K/uL (1.4-6.5); Neutrophils % (auto) 70.2 %; Platelet Count 151 K/uL (130-400); RDW Coefficient of Variation 15.3 % (11.5-14.5); RDW Standard Deviation 62.4 fL (36.4-46.3); Red Blood Count 3.29 M/uL (4.7-6.1); White Blood Count 6.03 K/uL (4.8-10.8)
[2021-02-17 07:02] LABS: RBC Morphology Unremarkable
[2021-02-17 07:08] LABS: Calcium 7.9 mg/dl (8.5-10.1); Creatinine Clr Calc Pharmacy 34.1 ml/min; Est GFR (African American) 38.8 ml/min; Est GFR (Non-African American) 33.4 ml/min; Potassium 5.2 mmol/L (3.5-5.1)
[2021-02-17] MEDS: DICLOFENAC SOD 1% GEL 100 GM TUBE EXT SCH ×4 (08:31→21:37)
[2021-02-17] MEDS: ASPIRIN 81 MG ECTAB PO SCH (08:31)
[2021-02-17] MEDS: AMIODARONE 200 MG TAB PO SCH (08:31)
[2021-02-17] MEDS: ATORVASTATIN 40 MG TAB PO SCH (08:31)
[2021-02-17] MEDS: OLODATEROL HCL 2.5MCG/ACTUATION 60 PUFFS/INHALER INH SCH (10:21)
[2021-02-17] MEDS: lisinopril 10 MG TAB PO SCH (10:22)
[2021-02-17] MEDS: METOPROLOL SUCC 50MG EXT REL TAB PO SCH (10:22)
--- NOTE | 2021-02-17 11:08 | Cardiology Progress Note ---
Date of Service February 17, 2021 Assessment & Plan (1) Acute on chronic systolic heart failure: (2) CAD (coronary artery disease): (3) Acute respiratory failure with hypoxia: (4) Back fracture: (5) Atrial fibrillation: Plan: [employer] single chamber pacer defibrillator in place Plan: Patient presenting for back pain, found to be in acute on chronic systolic HF with evidence of volume overload. He follows with outside cardiology group and records have been requested but not received. Echo consistent with ischemic cardiomyopathy with LVEF 25%. He has ICD in place. Patient reporting good diuresis since admission. (Unsure if I+O's are being measured). Blood pressures diminished slightly overnight in a.m. medications held. Creatinine has crept upwards. Records available revealed cardiology evaluation in November. Recommendations: We will change IV furosemide to oral today Hold metoprolol and lisinopril given relative hypotension with plans to resume in a.m. at lower dosing. I.e. metoprolol succinate 12.5 to 25 mg depending on heart rate, lisinopril depending on renal function Suspect patient will require home O2 Will arrange remote interrogation of [employer] defibrillator today Admission and Anticipated Discharge Date Admission Date: February 14, 2021 Subjective Patient was seen and examined, chart, medications, telemetry reviewed. Notes edema in his arms but no other acute complaints. Back pain little change. No dizziness or lightheadedness. Blood pressure somewhat hypotensive overnight Review of Systems Review of Systems: All systems reviewed & are unremarkable except as noted in Subjective Physical Exam Constitutional: + thin; no acute distress Eyes: PERRL, conjunctivae normal, anicteric sclerae ENMT: external ear and nose normal, oropharynx normal Neck: trachea midline, no thyromegaly Respiratory: Auscultation: + diminished lung sounds Cardiovascular: Rate/Rhythm: regular rhythm Heart Sounds: normal S1, normal S2 and + murmur (Grade 1/6 systolic) Vessels: no JVD Extremities: + edema (Improved 1+) Gastrointestinal (Abdomen): normal bowel sounds, soft, nontender, no hepatosplenomegaly Musculoskeletal: no cyanosis or clubbing, extremities motor strength 5/5 Skin: Mild edema of elbows Psychiatric: A+Ox3, euthymic affect Results & Data ([facility]) Vital Signs (Past 12 Hours) Vital Signs Temp Pulse Pulse Resp BP BP Pulse Ox 02/17/21 07:38 36.3 C L 55 L 18 92/59 L 97/64 L 95 02/17/21 03:58 88/46 L 02/17/21 03:57 36.3 C L 57 L 20 83/45 L 95 02/16/21 23:24 57 L Laboratory Results Laboratory Results - last 24 hr 02/17/21 02/17/21 05:59 05:59 WBC 6.03 RBC 3.29 L Hgb 11.6 L Hct 36.8 L MCV 111.9 H MCH 35.3 H MCHC 31.5 L RDW Std Deviation 62.4 H RDW Coeff of Patrizia 15.3 H Plt Count 151 MPV 10.3 Immature Gran % (Auto) 0.2 Neut % (Auto) 70.2 Lymph % (Auto) 15.1 [place] % (Auto) 12.8 Eos % (Auto) 1.7 Baso % (Auto) 0.0 Neut # (Auto) 4.24 Lymph # (Auto) 0.91 L [place] # (Auto) 0.77 H Eos # (Auto) 0.10 Baso # (Auto) 0.00 Immature Gran # (Auto) 0.01 RBC Morphology Unremarkable Sodium 139 Potassium 5.2 H Chloride 110 H Carbon Dioxide 25 Anion Gap 4.0 BUN 62 H Creatinine 1.87 H Est Cr Clr Drug Dosing 34.1 Est GFR ( Amer) 38.8 Est GFR (Non-Af Amer) 33.4 BUN/Creatinine Ratio 33.0 H Glucose 83 Calcium 7.9 L (1) Back fracture Encounter type: initial encounter Fracture of vertebra location: lumbar
[2021-02-17] MEDS ORDERED: FUROSEMIDE 20 MG TAB PO ONE (11:15)
--- NOTE | 2021-02-17 14:46 | Hospitalist Progress Note ---
Date of Service February 17, 2021 Assessment & Plan (1) Acute respiratory failure with hypoxia: Plan: This is a 80yo M with a PMH of CAD (s/p CABG in 1994 in [place]), PAD (s/p bilateral femoral stents), COPD, atrial fibrillation and other medical problems listed below who presents with worsening back pain over the past week and was found to have acute hypoxia and decompensated heart failure as well as compression deformity of L2. Initially hypoxic at 83%, improved to 97% on 2L NC In setting of decompensated heart failure Patient did not feel SOB at 83% initially - possibly hypoxic at baseline Would benefit from 2 step at discharge if oxygenation does not improve with diuresis Minimally shortness of breath at rest He has been saturating well with 2 L of nasal cannula oxygen Possible new onset CKD or ELIECER Creatinine today at 1.87 from 1.50 on admission. Await records from [place] to designate this as CKD. Monitor daily BMP. Avoid any nephrotoxic agents. (2) Decompensated heart failure: Plan: Acute on chronic systolic heart failure CXR with small left pleural effusion with left lung base opacities suggestive of atelectasis versus pneumonia. Cardiomegaly with pulmonary vascular congestion Pro-BNP 19,578, troponin wnl, ECG with wide QRS complexes with PVCs, LAD and LBBB (no EKGs available for comparison) Echo : LV is mildly dilated, septal motion is consistent with conduction abnormality, severe global hypokinesis with only contractile segments being the base and the mid anterior and lateral raymond. The septum is akinetic, the apex i s dyskinetic. Apical thrombus is not excluded. EF 20 to 25%. Aortic valve sclerosis moderate without significant stenosis. Trace aortic regurgitation, moderate mitral calcification with moderate MR and trace TR Appreciate cardiology input and recommendation-awaiting records from cardiology office from [place] IV Lasix transition to oral today. Still blood pressure in the soft side this morning. Hold beta-annel and lisinopril for now. Reassess tomorrow morning. Continue to monitor ins and outs along with daily weights. (3) Lumbar compression fracture: Plan: Appreciate spine surgery input and recommendation Given his poor medical condition TLSO was not prescribed and conservative management advised Has been getting lidocaine patch and on diclofenac gel Try to avoid any narcotics (4) Ambulatory dysfunction: Plan: History of spinal stenosis, worsening pain and ambulatory dysfunction over the past month since fall CT lumbar spine with * 1. There is a mild compression deformity of L2 which is new from 09/09/2012. This may be acute to subacute and there is mild paravertebral edema at this level. Correlate for point tenderness. 2. A moderate superior endplate compression deformity of L4 is also new from 09/09/2012. This is age-indeterminate but likely chronic. 3. A minimal superior endplate compression deformity of L1 is unchanged from 2013. 4. A right lateral disc extrusion at L4-L5 may impinge on the exiting right L4 nerve root. Given 8mg IV Dexamethasone in ER Adding Lidocaine patch and scheduled Tylenol Fall precautions (5) CAD (coronary artery disease): Plan: History of CABG in 1994 at [place], follows with Dr. Holm of [facility] cardiology Has ICD placed No chest pain since admission Continue aspirin, Toprol Previously noncompliant with statin - agreeable to resume (6) COPD (chronic obstructive pulmonary disease): Plan: Quit smoking in 1988. Not on home O2. COPD appears to be at baseline. Continue Salmeterol inh BID (7) Atrial fibrillation: Plan: Continue amiodarone. Not on anticoagulation Rate is controlled (8) PAD (peripheral artery disease): Plan: H/o vascular intervention of femoral A. bilaterally per patient at [facility]. Planning to resume statin, continue aspirin (9) Macrocytic anemia: Plan: Hgb 13.8, MCV 112.5 - longstanding alcohol use Hemoglobin at 11.6 today. Folate/B12 levels not concerning. DVT Ppx: SQ heparin Code status: FULL [place] Dispo: Admitted to PCU. Discharge planning ordered Admission and Anticipated Discharge Date Admission Date: February 14, 2021 Subjective Patient does not have any complaints at the moment. Reports shortness of breath is about the same. Currently remains on 2 L of nasal cannula. Denies any dizziness. Denies any chest pain or palpitations. Rest of the review of systems negative. Review of Systems Review of Systems: All systems reviewed & are unremarkable except as noted in HPI & below Physical Exam Physical Exam: General: A&Ox2 HENT: NCAT, MMM, EOMI Eyes: PERRLA Neck: Supple, normal range of motion CVS: normal rate and rhythm Resp: b/l decrease breadth sounds Abdomen: Soft, ND/NT, +BS Extremities: No c/c/e Neuro: face symmetric, no focal deficit appreciated Skin: warm and dry, no rashes/lesions/errythema Results & Data Results & Data ([facility]) Vital Signs (Past 12 Hours) Vital Signs Temp Pulse Resp BP BP Pulse Ox 02/17/21 11:00 36.6 C 60 18 110/77 96 02/17/21 07:38 36.3 C L 55 L 18 92/59 L 97/64 L 95 02/17/21 03:58 88/46 L 02/17/21 03:57 36.3 C L 57 L 20 83/45 L 95
--- NOTE | 2021-02-17 18:10 | Electrocardiogram Report ---
Test Reason : Blood Pressure : / mmHG Vent. Rate : 067 BPM Atrial Rate : 066 BPM P-R Int : 000 ms QRS Dur : 184 ms QT Int : 490 ms P-R-T Axes : 000 -30 170 degrees QTc Int : 517 ms Sinus rhythm Left axis deviation Left bundle branch block Abnormal ECG Confirmed by Seth An ([id number]) on 02/17/2021 6:09:26 PM Referred By: REFERRED SELF Confirmed By:Golden An
[2021-02-18] MEDS: HEPARIN SOD 5,000 UNIT/0.5 ML VIAL SQ SCH ×3 (05:36→19:45)
[2021-02-18] MEDS: ALBUT/IPRATROP 3MG/0.5MG NEB 3 ML VIAL NEB PRN (05:48)
[2021-02-18 07:12] LABS: BUN Creatinine Ratio 36.5 (10-20); Calcium 8.5 mg/dl (8.5-10.1); Creatinine Clr Calc Pharmacy 33.8 ml/min; Est GFR (African American) 38.3 ml/min; Potassium 5.2 mmol/L (3.5-5.1)
[2021-02-18] MEDS: ASPIRIN 81 MG ECTAB PO SCH (08:18)
[2021-02-18] MEDS: DICLOFENAC SOD 1% GEL 100 GM TUBE EXT SCH ×4 (08:19→19:45)
[2021-02-18] MEDS: ATORVASTATIN 40 MG TAB PO SCH (08:20)
[2021-02-18] MEDS: OLODATEROL HCL 2.5MCG/ACTUATION 60 PUFFS/INHALER INH SCH (08:20)
[2021-02-18] MEDS ORDERED: METOPROLOL SUCC 25MG EXT REL TAB PO SCH (09:00)
[2021-02-18] MEDS: AMIODARONE 200 MG TAB PO SCH (09:54)
[2021-02-18] MEDS: FUROSEMIDE 20 MG TAB PO SCH ×2 (10:33→12:36)
[2021-02-18] MEDS: METOPROLOL SUCC 25MG EXT REL TAB PO SCH (12:38)
--- NOTE | 2021-02-18 12:53 | Hospitalist Progress Note ---
Date of Service February 18, 2021 Assessment & Plan (1) Acute respiratory failure with hypoxia: Plan: Secondary to acute systolic heart failure exacerbation. Initially hypoxic at 83%, improved to 97% on 2L NC Would benefit from 2 step at discharge if oxygenation does not improve with diuresis He has been saturating well with 2 L of nasal cannula oxygen (2) Acute on chronic systolic heart failure: Plan: Patient follows with the cardiology office in [place]. Volume overload on admission with patient doing well on current diuresis. Cardiology following and titrating as needed. EF 20 to 25% per Echo with ICD in place. Relative hypotension this am-hold Lasix and Toprol pending Cardiology input this am. Continue to hold lisinopril in setting of hyperkalemia. (3) Lumbar compression fracture: Plan: Per notes available for review patient has frequent falls at home with chronic longstanding back pain. Patient endorses chronic longstanding back pain with recent worsening in the last 2 weeks. Imaging reveals acute lumbar (L2) compression fracture Given his poor medical condition TLSO was not prescribed and conservative management advised Has been getting lidocaine patch and on diclofenac gel--not working and Tylenol not helpful per patient. Starting on tramadol as needed to help him mobilize more. (4) Ambulatory dysfunction: Plan: History of spinal stenosis, worsening pain and ambulatory dysfunction over the past month. Recurrent falls at home. Adding Lidocaine patch and scheduled Tylenol Fall precautions, PT/OT suggests SNF as transition to home. (5) CAD (coronary artery disease): Plan: History of CABG in 1994 at [place], follows with Dr. Holm of [facility] cardiology Has ICD placed No chest pain since admission Continue aspirin, Toprol, statin (6) COPD (chronic obstructive pulmonary disease): Plan: Quit smoking in 1988. Not on home O2. COPD appears to be at baseline. Continue Salmeterol inh BID (7) Atrial fibrillation: Plan: Per cardiology notes from November at [facility], patient has paroxysmal atrial fibrillation resulting in an inappropriate ICD shock which led to amiodarone therapy. Patient declines oral anticoagulation therapy. Rate is controlled with Toprol XL. (8) PAD (peripheral artery disease): Plan: H/o vascular intervention of bilateral femoral arteries per patient/notes. Records not available for review. Continue medical management with aspirin and statin. (9) Macrocytic anemia: Plan: Macrocytic anemia noted with an MCV of 112. Patient has a history of longstanding alcohol use, reportedly quitting approximately 5 years ago. Hemoglobin is stable. There is no evidence of B12 or folate deficiency on labs this admission. Follow-up as outpatient with primary care provider for further investigation as needed. Of note, patient denies any B symptoms today and reports weight loss when he stopped drinking 5 years ago with no fluctuating weight changes recently. (10) CKD (chronic kidney disease), stage III: Plan: Uncertain baseline [facility] His creatinine level has been stable over several days. (11) Noncompliance with medication regimen: Plan: Noted in outpatient notes. (12) DVT prophylaxis: Plan: SQ heparin Code status: FULL PCP: Hector ([place]) Dispo: Admitted to PCU. PT recommends rehab as a transition to home. Patient is currently considering this and working with case management. Misa Faith DO [facility] and Anticipated Discharge Date Admission Date: February 14, 2021 Subjective 80-year-old man with a history of cardiac and peripheral vascular disease status post CABG presented with acute hypoxia and decompensated heart failure as well as a worsening of his back pain that is chronic. He was found to have a lumbar compression fracture of L2 and ortho spine was consulted. In light of his hypoxia and pre-existing lung issues he is a very poor candidate for surgery and would also not likely tolerate a TL SLO brace as this is constrictive. Conservative management recommended with no lifting greater than 5 pounds. Physical therapy encouraged. Today the patient reports inadequate pain control when he moves at all. He reports using Tylenol but typically refuses this as he reports it does not work. He is interested in trying tramadol. Discussed pros and cons of tramadol. From a cardiac standpoint he is edematous but denies shortness of breath or chest pain. He feels the diuretics are working well for him and cardiology is following him. Tolerating p.o. and otherwise no issues. Review of Systems Review of Systems: At least ten systems were reviewed and negative except as indicated in HPI above. Physical Exam Physical Exam: CONSTITUTIONAL: WNWD, vitals as above, generally NAD EYES: normal conjunctivae, no scleral icterus ENT: external ear and nose normal, MMM NECK: trachea midline RESPIRATORY: clear to auscultation bilaterally, no crackles, rales or wheezes, normal respiratory effort CARDIOVASCULAR: regular rate and rhythm, S1 and 2 heard without murmurs, gallops or rubs, no JVD, 2+ peripheral edema to thighs bilaterally CHEST: +ICD in place left anterior chest wall GASTROINTESTINAL: soft, nontender, nondistended. MUSCULOSKELETAL: strength 5/5 throughout, head is normocephalic and atraumatic, neck supple, normal palpation of chest wall without tenderness SKIN: warm and dry NEUROLOGIC: CN 2-12 grossly intact, normal cognition, normal speech, no tremor, no gross focal deficits. PSYCHIATRIC: alert cooperative and oriented to person, place and time. Results & Data Results & Data ([facility]) Vital Signs (Past 12 Hours) Vital Signs Temp Pulse Pulse Resp BP BP Pulse Ox 02/18/21 12:38 60 89/48 L 02/18/21 11:26 36.5 C 62 18 111/65 98 02/18/21 10:21 61 02/18/21 07:29 36.5 C 60 16 88/64 L 96 02/18/21 05:50 59 L 22 98 02/18/21 03:40 36.5 C 57 L 16 81/48 L 97 Laboratory Results [facility] 02/18/21 06:12 Sodium 140 Potassium 5.2 H Chloride 109 H Carbon Dioxide 26 BUN 69 H Creatinine 1.89 H Glucose 96 Calcium 8.5 Medications Administered Current Inpatient Medications Acetaminophen (Acetaminophen 500 Mg Tab) 1,000 mg PO Q8H PRN PRN Reason: Pain or Fever Stop: 03/16/21 16:41 Albuterol (Albut/Ipratrop 3mg/0.5mg Neb 3 Ml Vial) 3 ml NEB Q2H PRN PRN Reason: Wheezing Stop: 03/18/21 19:57 Last Admin: 02/18/21 05:48 Dose: 3 ml Documented by: Amiodarone HCl (Amiodarone 200 Mg Tab) 200 mg PO [facility] Stop: 03/17/21 08:59 Last Admin: 02/18/21 09:54 Dose: 200 mg Documented by: Aspirin (Aspirin 81 Mg Ectab) 81 [facility] Stop: 03/17/21 08:59 Last Admin: 02/18/21 08:18 Dose: 81 mg Documented by: Atorvastatin Calcium (Atorvastatin 40 Mg Tab) 40 mg PO [facility] Stop: 03/17/21 08:59 Last Admin: 02/18/21 08:20 Dose: 40 mg Documented by: Diclofenac Sodium (Diclofenac Sod 1% Gel 100 Gm Tube) 2 gm EXT QID [facility] Stop: 03/17/21 16:59 Last Admin: 02/18/21 12:38 Dose: 2 gm Documented by: Furosemide (Furosemide 20 Mg Tab) 20 mg PO QAM [facility] Stop: 03/20/21 08:59 Last Admin: 02/18/21 12:36 Dose: 20 mg Documented by: Heparin Sodium (Porcine) (Heparin Sod 5,000 Unit/0.5 Ml Vial) 5,000 units SQ Q8 [facility] Stop: 03/16/21 16:41 Last Admin: 02/18/21 05:36 Dose: 5,000 units Documented by: Lisinopril (Lisinopril 10 Mg Tab) 10 mg PO QAM [facility] Stop: 03/17/21 08:59 Last Admin: 02/17/21 10:22 Dose: Not Given Documented by: Metoprolol Succinate (Metoprolol Succ 25mg Ext Rel Tab) 12.5 mg PO [facility] Stop: 03/20/21 12:29 Last Admin: 02/18/21 12:38 Dose: Not Given Documented by: Olodaterol (Olodaterol Hcl 2.5mcg/Actuation 60 Puffs/Inhaler) 2 puffs INH DAILY [facility]; Protocol Stop: 03/17/21 08:59 Last Admin: 02/18/21 08:20 Dose: 2 puffs Documented by: Ondansetron HCl (Ondansetron Inj 2 Mg/Ml 2 Ml Vial) 4 mg IV Q6H PRN PRN Reason: Nausea Stop: 03/16/21 16:41 Polyethylene Glycol (Polyethylene (Miralax) 17 Gm Pack) 17 gm PO DAILY PRN PRN Reason: Constipation Stop: 03/16/21 16:41
--- NOTE | 2021-02-18 13:19 | Cardiology Progress Note ---
Date of Service February 18, 2021 Assessment & Plan (1) Acute on chronic systolic heart failure: (2) CAD (coronary artery disease): (3) Acute respiratory failure with hypoxia: (4) Back fracture: (5) Atrial fibrillation: Plan: [employer] single chamber pacer defibrillator in place Plan: Patient presenting for back pain, found to be in acute on chronic systolic HF with evidence of volume overload. He follows with outside cardiology group and records have been requested but not received. Echo consistent with ischemic cardiomyopathy with LVEF 25%. He has ICD in place. Patient reporting good diuresis since admission. (Unsure if I+O's are being measured). Blood pressures diminished slightly overnight in a.m. medications held. Creatinine has crept upwards. Records available revealed cardiology evaluation in November. Recommendations: Patient's relative hypotension persists. We will decrease metoprolol dose to 12.5 mg p.o. daily today and hold parameter should be followed. We will continue oral Lasix as blood pressure allows. Continue to hold BRITTNEY inhibitor for now Suspect patient will require home O2 Admission and Anticipated Discharge Date Admission Date: February 14, 2021 Subjective Patient seen and examined, chart reviewed. States he is feeling relatively well today. Denies chest pain, shortness of breath, palpitations, lightheadedness, dizziness or syncope. Telemetry reviewed: Normal sinus rhythm without arrhythmia or significant ectop y. Review of Systems Review of Systems: All systems reviewed & are unremarkable except as noted in HPI & below Physical Exam Physical Exam: General: Awake, alert and oriented x 3. No acute distress. HEENT: Normocephalic, atraumatic. Pupils equal, round and reactive to light and accommodation. Extraocular muscles are intact. Anicteric sclera. Moist mucous membranes. Neck: No JVD. No bruit. Cardiovascular: Regular. Positive S-4. Normal S-1 and S-2. No S-3. No murmurs or rubs. Pulmonary: Clear to auscultation B/L. No rales, rhonchi or wheezing Abdomen: Bowel sounds x 4, soft. No rebound, guarding or tenderness. No organomegaly. Extremities: No clubbing, cyanosis or edema. +2 pedal pulses bilaterally. Skin: Warm and dry. Results & Data ([facility]) Vital Signs (Past 12 Hours) Vital Signs Temp Pulse Pulse Resp BP BP Pulse Ox 02/18/21 12:38 60 89/48 L 02/18/21 11:26 36.5 C 62 18 111/65 98 02/18/21 10:21 61 02/18/21 07:29 36.5 C 60 16 88/64 L 96 02/18/21 05:50 59 L 22 98 02/18/21 03:40 36.5 C 57 L 16 81/48 L 97 (1) Back fracture Encounter type: initial encounter Fracture of vertebra location: lumbar
[2021-02-18] MEDS: traMADol HCL 50 MG TABLET PO PRN (16:51)
[2021-02-19] MEDS: ALBUT/IPRATROP 3MG/0.5MG NEB 3 ML VIAL NEB PRN (05:25)
[2021-02-19 06:12] LABS: Hematocrit (blood only) 37.8 % (42-52); Mean Corpuscular Hemoglobin 35.6 pg (25-34); Mean Corpuscular Hgb Conc 31.7 g/dL (32-36); Mean Corpuscular Volume 112.2 fL (80-100); Mean Platelet Volume 9.9 fL (7.4-10.4); Platelet Count 133 K/uL (130-400); RDW Standard Deviation 61.4 fL (36.4-46.3); Red Blood Count 3.37 M/uL (4.7-6.1); White Blood Count 6.34 K/uL (4.8-10.8)
[2021-02-19] MEDS: HEPARIN SOD 5,000 UNIT/0.5 ML VIAL SQ SCH ×3 (06:36→21:14)
[2021-02-19 06:53] LABS: BUN Creatinine Ratio 39.3 (10-20); Calcium 8.2 mg/dl (8.5-10.1); Creatinine Clr Calc Pharmacy 36.9 ml/min; Est GFR (African American) 42.6 ml/min; Est GFR (Non-African American) 36.7 ml/min; Magnesium 2.2 mg/dl (1.8-2.4); Potassium 5.3 mmol/L (3.5-5.1)
[2021-02-19] MEDS: AMIODARONE 200 MG TAB PO SCH (08:14)
[2021-02-19] MEDS: ASPIRIN 81 MG ECTAB PO SCH (08:14)
[2021-02-19] MEDS: METOPROLOL SUCC 25MG EXT REL TAB PO SCH (08:14)
[2021-02-19] MEDS: DICLOFENAC SOD 1% GEL 100 GM TUBE EXT SCH ×4 (08:14→21:14)
[2021-02-19] MEDS: FUROSEMIDE 20 MG TAB PO SCH (08:14)
[2021-02-19] MEDS: ATORVASTATIN 40 MG TAB PO SCH (08:14)
[2021-02-19] MEDS: OLODATEROL HCL 2.5MCG/ACTUATION 60 PUFFS/INHALER INH SCH (08:15)
[2021-02-19] MEDS: traMADol HCL 50 MG TABLET PO PRN (08:18)
--- NOTE | 2021-02-19 08:47 | Cardiology Progress Note ---
Date of Service February 19, 2021 Assessment & Plan (1) Acute on chronic systolic heart failure: (2) CAD (coronary artery disease): (3) Acute respiratory failure with hypoxia: (4) Back fracture: (5) Atrial fibrillation: Plan: [employer] single chamber pacer defibrillator in place Plan: Patient presenting for back pain, found to be in acute on chronic systolic HF with evidence of volume overload. He follows with outside cardiology group and records have been requested but not received. Echo consistent with ischemic cardiomyopathy with LVEF 25%. He has ICD in place. Patient reporting good diuresis since admission. (Unsure if I+O's are being measured). Blood pressures diminished slightly overnight in a.m. medications held. Creatinine has crept upwards. Records available revealed cardiology evaluation in November. Recommendations: Patient's relative hypotension persists. We will decrease metoprolol dose to 12.5 mg p.o. daily today and hold parameter should be followed. We will continue oral Lasix as blood pressure allows. Continue to hold BRITTNEY inhibitor for now Suspect patient will require home O2 Admission and Anticipated Discharge Date Admission Date: February 14, 2021 Subjective Patient seen and examined, chart reviewed. States he is feeling relatively well today. Denies chest pain, shortness of breath, palpitations, lightheadedness, dizziness or syncope. Telemetry reviewed: Normal sinus rhythm without arrhythmia or significant ectop y. Physical Exam Physical Exam: General: Awake, alert and oriented x 3. No acute distress. HEENT: Normocephalic, atraumatic. Pupils equal, round and reactive to light and accommodation. Extraocular muscles are intact. Anicteric sclera. Moist mucous membranes. Neck: No JVD. No bruit. Cardiovascular: Regular. Positive S-4. Normal S-1 and S-2. No S-3. No murmurs or rubs. Pulmonary: Clear to auscultation B/L. No rales, rhonchi or wheezing Abdomen: Bowel sounds x 4, soft. No rebound, guarding or tenderness. No organomegaly. Extremities: No clubbing, cyanosis or edema. +2 pedal pulses bilaterally. Skin: Warm and dry. Results & Data ([facility]) Vital Signs (Past 12 Hours) Vital Signs Temp Pulse Resp BP Pulse Ox 02/19/21 08:11 36.5 C 61 16 91/54 L 96 02/19/21 05:26 61 20 100 02/19/21 05:14 36.8 C 56 L 17 88/47 L 97 02/18/21 22:44 36.7 C 60 17 106/62 98 (1) Back fracture Encounter type: initial encounter Fracture of vertebra location: lumbar
--- NOTE | 2021-02-19 09:32 | Electrocardiogram Report ---
Test Reason : Blood Pressure : / mmHG Vent. Rate : 063 BPM Atrial Rate : 076 BPM P-R Int : 000 ms QRS Dur : 180 ms QT Int : 460 ms P-R-T Axes : 000 -33 138 degrees QTc Int : 470 ms Wide QRS rhythm - likely idioventricular without obvious P waves seen Left axis deviation Left bundle branch block Abnormal ECG When compared with ECG of 15-FEB-2021 11:13, No significant change was found Confirmed by Cade Price ([id number]) on 02/19/2021 9:31:46 AM Referred By: REFERRED SELF Confirmed By:Cade Price
--- NOTE | 2021-02-19 11:09 | Hospitalist Progress Note ---
Date of Service February 19, 2021 Assessment & Plan (1) Acute respiratory failure with hypoxia: Plan: Secondary to acute systolic heart failure exacerbation. Initially hypoxic at 83%, improved to 97% on 2L NC Would benefit from 2 step at discharge if oxygenation does not improve with diuresis He has been saturating well with 2 L of nasal cannula oxygen (2) Acute on chronic systolic heart failure: Plan: Patient follows with the cardiology office in [place]. EF 20 to 25% per Echo with ICD in place. Of note, hypotension has resolved with decrease in Toprol dose yesterday. Continue to hold lisinopril in setting of hyperkalemia. Volume overload on admission with patient doing well on current diuresis. Still has significant edema peripherally. Lasix was originally 40 IV daily and was bradley scalated to Lasix 20 mg p.o. daily after creatinine was rising. Uncertain of baseline creatinine however he is probably close to his norm. Will discuss with cardiology if they are okay with being a little more aggressive with diuresis again. Daily standing weights preferred instead bed scale weights. Continue low-salt diet. Continue to encourage mobilization of patient out of bed. Will also obtain urine protein to ensure no evidence of nephrotic syndrome with significant peripheral edema. (3) Lumbar compression fracture: Plan: Per notes available for review patient has frequent falls at home with chronic longstanding back pain. Patient endorses chronic longstanding back pain with recent worsening in the last 2 weeks. Imaging reveals acute lumbar (L2) compression fracture Given his poor medical condition TLSO was not prescribed and conservative management advised Has been getting lidocaine patch and on diclofenac gel--not working and Tylenol not helpful per patient. Starting on tramadol as needed to help him mobilize more. Will increase dose o 50mg PRN as the 25 mg dose not effective. (4) Hyperkalemia: Plan: Uncertain etiology. Considerations include hemolysis of sample blood, however, unlikely with several daily labs elevated, no ongoing replacement salts containing potassium. Decreased renal potassium excretion from chronic renal failure is a consideration. Lisinopril was likely contributing and has been stopped. He is not on NSAIDs or other offending agents that may raise the potassium such as spironolactone. CHF may be a cause. Will obtain pH and BMP to ensure no evidence of acidosis that may cause a cellular shift the potassium. Will ensure CK is normal to rule out any rhabdomyolysis that could be contributing. Continue holding lisinopril and treating heart failure with more aggressive diuresis. (5) Ambulatory dysfunction: Plan: History of spinal stenosis, worsening pain and ambulatory dysfunction over the past month. Recurrent falls at home. Adding Lidocaine patch and scheduled Tylenol Fall precautions, PT/OT suggests SNF as transition to home. (6) CAD (coronary artery disease): Plan: History of CABG in 1994 at [place], follows with Dr. Holm of [facility] cardiology Has ICD placed No chest pain since admission Continue aspirin, Toprol, statin (7) COPD (chronic obstructive pulmonary disease): Plan: Quit smoking in 1988. Not on home O2. COPD appears to be at baseline. Continue Salmeterol inh BID (8) Atrial fibrillation: Plan: Per cardiology notes from November at [facility], patient has paroxysmal atrial fibrillation resulting in an inappropriate ICD shock which led to amiodarone therapy. Patient declines oral anticoagulation therapy. Rate is controlled with Toprol XL. (9) PAD (peripheral artery disease): Plan: H/o vascular intervention of bilateral femoral arteries per patient/notes. Records not available for review. Continue medical management with aspirin and statin. (10) Macrocytic anemia: Plan: Macrocytic anemia noted with an MCV of 112. Patient has a history of longstanding alcohol use, reportedly quitting approximately 5 years ago. Hemoglobin is stable. There is no evidence of B12 or folate deficiency on labs this admission. Follow-up as outpatient with primary care provider for further investigation as needed. Of note, patient denies any B symptoms today and reports weight loss when he stopped drinking 5 years ago with no fluctuating weight changes recently. (11) CKD (chronic kidney disease), stage III: Plan: Uncertain baseline patient does not follow in the [facility] system. His creatinine level has been stable over several days. (12) Noncompliance with medication regimen: Plan: Noted in outpatient notes. (13) DVT prophylaxis: Plan: SQ heparin Code status: FULL PCP: Hector (JARRETT Crouch) Dispo: Admitted to PCU. PT recommends rehab as a transition to home. Patient is currently considering this and working with case management. Misa Faith DO [facility] Hospitalist Admission and Anticipated Discharge Date Admission Date: February 14, 2021 Subjective 80-year-old man with a history of cardiac and peripheral vascular disease status post CABG presented with acute hypoxia and decompensated heart failure as well as a worsening of his back pain that is chronic. He was found to have a lumbar compression fracture of L2 and ortho spine was consulted. In light of his hypoxia and pre-existing lung issues he is a very poor candidate for surgery and would also not likely tolerate a TLSO brace as this is constrictive. Conservative management recommended with no lifting greater than 5 pounds. Physical therapy encouraged. Today patient was out of bed to chair and per nurse he was in a fair amount of pain, however he does not report any pain at all. He is currently now back in bed and appears comfortable. Patient denies any shortness of breath and remains on 2 L/min nasal cannula. Denies any other respiratory symptoms or chest pain. He feels the ESTELA hose are not helping but he is compliant with them. Hypotension appears to have resolved with med changes made yesterday. Review of Systems Review of Systems: At least ten systems were reviewed and negative except as indicated in HPI above. Physical Exam Physical Exam: CONSTITUTIONAL: WNWD, vitals as above, generally NAD EYES: normal conjunctivae, no scleral icterus ENT: external ear and nose normal, MMM NECK: trachea midline RESPIRATORY: clear to auscultation bilaterally, no crackles, rales or wheezes, normal respiratory effort CARDIOVASCULAR: regular rate and rhythm, S1 and 2 heard without murmurs, gallops or rubs, no JVD, 2+ peripheral edema to thighs bilaterally, bilateral knee hi TEDs in place CHEST: +ICD in place left anterior chest wall GASTROINTESTINAL: soft, nontender, nondistended. MUSCULOSKELETAL: strength 5/5 throughout, head is normocephalic and atraumatic, neck supple, normal palpation of chest wall without tenderness SKIN: warm and dry NEUROLOGIC: CN 2-12 grossly intact, normal cognition, normal speech, no tremor, no gross focal deficits. PSYCHIATRIC: alert cooperative and oriented to person, place and time. Results & Data Results & Data ([facility]) Vital Signs (Past 12 Hours) Vital Signs Temp Pulse Pulse Resp BP Pulse Ox 02/19/21 10:02 63 02/19/21 08:11 36.5 C 61 16 91/54 L 96 02/19/21 05:26 61 20 100 02/19/21 05:14 36.8 C 56 L 17 88/47 L 97 Laboratory Results Short CBC 02/19/21 Range/Units 05:53 WBC 6.34 (4.8-10.8) K/uL Hgb 12.0 L (14.0-18.0) g/dL Hct 37.8 L (42-52) % Plt Count 133 (130-400) K/uL [facility] 02/19/21 05:53 Sodium 140 Potassium 5.3 H Chloride 109 H Carbon Dioxide 26 BUN 68 H Creatinine 1.73 H Glucose 97 Calcium 8.2 L Medications Administered Current Inpatient Medications Acetaminophen (Acetaminophen 500 Mg Tab) 1,000 mg PO Q8H PRN PRN Reason: Pain or Fever Stop: 03/16/21 16:41 Albuterol (Albut/Ipratrop 3mg/0.5mg Neb 3 Ml Vial) 3 ml NEB Q2H PRN PRN Reason: Wheezing Stop: 03/18/21 19:57 Last Admin: 02/19/21 05:25 Dose: 3 ml Documented by: Amiodarone HCl (Amiodarone 200 Mg Tab) 200 mg PO [facility] Stop: 03/17/21 08:59 Last Admin: 02/19/21 08:14 Dose: 200 mg Documented by: Aspirin (Aspirin 81 Mg Ectab) 81 mg PO [facility] Stop: 03/17/21 08:59 Last Admin: 02/19/21 08:14 Dose: 81 mg Documented by: Atorvastatin Calcium (Atorvastatin 40 Mg Tab) 40 mg PO [facility] Stop: 03/17/21 08:59 Last Admin: 02/19/21 08:14 Dose: 40 mg Documented by: Diclofenac Sodium (Diclofenac Sod 1% Gel 100 Gm Tube) 2 gm EXT QID [facility] Stop: 03/17/21 16:59 Last Admin: 02/19/21 08:14 Dose: 2 gm Documented by: Furosemide (Furosemide 20 Mg Tab) 20 mg PO [facility] Stop: 03/20/21 08:59 Last Admin: 02/19/21 08:14 Dose: 20 mg Documented by: Heparin Sodium (Porcine) (Heparin Sod 5,000 Unit/0.5 Ml Vial) 5,000 units SQ Q8 [facility] Stop: 03/16/21 16:41 Last Admin: 02/19/21 06:36 Dose: 5,000 units Documented by: Lisinopril (Lisinopril 10 Mg Tab) 10 mg PO [facility] Stop: 03/17/21 08:59 Last Admin: 02/17/21 10:22 Dose: Not Given Documented by: Metoprolol Succinate (Metoprolol Succ 25mg Ext Rel Tab) 12.5 mg PO QAM DALJIT Stop: 03/20/21 12:29 Last Admin: 02/19/21 08:14 Dose: Not Given Documented by: Olodaterol (Olodaterol Hcl 2.5mcg/Actuation 60 Puffs/Inhaler) 2 puffs INH DAILY DALJIT; Protocol Stop: 03/17/21 08:59 Last Admin: 02/19/21 08:15 Dose: 2 puffs Documented by: Ondansetron HCl (Ondansetron Inj 2 Mg/Ml 2 Ml Vial) 4 mg IV Q6H PRN PRN Reason: Nausea Stop: 03/16/21 16:41 Polyethylene Glycol (Polyethylene (Miralax) 17 Gm Pack) 17 gm PO DAILY PRN PRN Reason: Constipation Stop: 03/16/21 16:41 Tramadol HCl (Tramadol Hcl 50 Mg Tablet) 25 mg PO Q4H PRN PRN Reason: Pain Stop: 03/20/21 15:27 Last Admin: 02/19/21 08:18 Dose: 25 mg Documented by:
[2021-02-19] MEDS: POLYETHYLENE (MIRALAX) 17 GM PACK PO PRN (12:15)
[2021-02-19] MEDS ORDERED: FUROSEMIDE 40 MG in SYRINGE 0 ML IV ONE (15:45)
[2021-02-19 17:46] LABS: Creatinine Urine Random 49.3 mg/dl; Protein Creatinine Ratio Urine 0.3 (0-0.2); Total Protein Urine Random 13.3 mg/dl (0-11.9)
[2021-02-20 05:54] LABS: Hematocrit (blood only) 37.5 % (42-52); Hemoglobin 11.8 g/dL (14.0-18.0); Mean Corpuscular Hemoglobin 35.4 pg (25-34); Mean Corpuscular Hgb Conc 31.5 g/dL (32-36); Mean Corpuscular Volume 112.6 fL (80-100); Mean Platelet Volume 9.8 fL (7.4-10.4); Platelet Count 139 K/uL (130-400); RDW Coefficient of Variation 14.9 % (11.5-14.5); RDW Standard Deviation 61.5 fL (36.4-46.3); Red Blood Count 3.33 M/uL (4.7-6.1)
[2021-02-20 06:29] LABS: BUN Creatinine Ratio 41.2 (10-20); Calcium 8.3 mg/dl (8.5-10.1); Creatinine Clr Calc Pharmacy 41.4 ml/min; Est GFR (Non-African American) 42.3 ml/min; Magnesium 2.2 mg/dl (1.8-2.4); Potassium 5.7 mmol/L (3.5-5.1)
[2021-02-20] MEDS: HEPARIN SOD 5,000 UNIT/0.5 ML VIAL SQ SCH ×3 (06:29→20:40)
[2021-02-20] MEDS: ASPIRIN 81 MG ECTAB PO SCH (08:06)
[2021-02-20] MEDS: METOPROLOL SUCC 25MG EXT REL TAB PO SCH (08:06)
[2021-02-20] MEDS: AMIODARONE 200 MG TAB PO SCH (08:06)
[2021-02-20] MEDS: DICLOFENAC SOD 1% GEL 100 GM TUBE EXT SCH ×4 (08:06→20:40)
[2021-02-20] MEDS: OLODATEROL HCL 2.5MCG/ACTUATION 60 PUFFS/INHALER INH SCH (08:07)
[2021-02-20] MEDS: FUROSEMIDE 40 MG in SYRINGE 0 ML IV SCH (08:07)
[2021-02-20] MEDS: ATORVASTATIN 40 MG TAB PO SCH (08:07)
--- NOTE | 2021-02-20 11:39 | Pre Anesthesia Assessment ---
Date of Service February 20, 2021 Pre Sedation Assessment Vital Signs Temp Pulse Pulse Resp BP Pulse Ox 02/20/21 08:00 64 02/20/21 07:46 36.8 C 78 20 125/69 98 02/20/21 03:54 36.8 C 61 19 102/64 96 02/19/21 23:13 36.7 C 78 19 112/62 96 02/19/21 19:38 36.7 C 65 18 113/69 94 02/19/21 15:34 36.6 C 65 18 145/62 H 98 02/19/21 11:52 37.0 C 86 18 130/77 96 Pre-Sedation Airway Assessment Smoking Status: Former smoker Notes The planned sedation has been discussed with the patient. Informed Consent was obtained. I have identified the patient, determined the appropriateness of sedation and have assessed the patient immediately prior to the procedure. All medicine(s) and interventions are by my order.
--- NOTE | 2021-02-20 12:03 | Post Anesthesia Assessment ---
Date of Service February 20, 2021 Post Sedation Assessment Vital Signs Temp Pulse Pulse Resp BP Pulse Ox 02/20/21 11:52 37.0 C 62 18 137/70 02/20/21 08:00 64 02/20/21 07:46 36.8 C 78 20 125/69 98 02/20/21 03:54 36.8 C 61 19 102/64 96 02/19/21 23:13 36.7 C 78 19 112/62 96 02/19/21 19:38 36.7 C 65 18 113/69 94 02/19/21 15:34 36.6 C 65 18 145/62 H 98 Discharge Sedation Level of Care: Fast Track Phase II Post Sedation Plan On clinical assessment, the patient appears to have tolerated the sedation without complications. Patient is recovering as anticipated. Patient will continue to be monitored by nursing and may be discharged when sedation discharge criteria are met per below protocol. Upon Completions of procedure up to 15 minutes continue every 5 minute vital signs and the P.A.R. score; then discharge to a Phase I or Fast Track to Phase II per the following guidelines: * Discharge Patient to appropriate Phase II area if PAR is 8 or greater or return to pre- procedure baseline. The post - procedure orders will be as directed. * If PAR score is less than 8 or not return to pre-procedure baseline then patient will follow Phase I monitoring till PAR is reached for Phase II. The Phase I may be done in procedure room or may call to secure a Phase I area. * If naloxone or flumazenil are used for reversal, hold in Phase I for continued monitoring from when last reversal dose was given for a minimum of 60 minutes or longer pending the nurse and/or physician discretion of patient condition before discharge to Phase II. Please call the Sedation Physician to re-evaluate and complete post-note for discharge to Phase II area. Do NOT discharge from procedure sedation or Phase 1 until post- sedation evaluation note is complete by procedure /sedation MD Sedation Discharge Instructions to be given to the patient at discharge to home.
--- NOTE | 2021-02-20 12:07 | Operative Report ---
Post Operative Report Pre & Post Diagnosis atrial fibrillation with RVR I identified the patient and participated in the time-out.: Yes Procedure ADRIANA Surgeon Jairon High DO [employer] Adviser Becca DIXON Estimated Blood Loss 0 Findings See Below Profound clot burden of left atrial appendage Specimens none. Description of Procedure Informed consent obtained. Patient prepped. Adequate moderate sedation achieved with a total of 5 mg of Versed and 125 mcg of fentanyl. ADRIANA performed which showed profound thrombus burden of the left atrial appendage. ADRIANA completed. Obviously, we will not proceed with cardioversion at this time. Start time: 1155 Stop time: 1158 Plan: We will start warfarin today and continue heparin bridge, home Lovenox bridge would also be acceptable. We will need 30 days of therapeutic INR and plan on repeating ADRIANA and hopefully cardioversion at that time. I attest to the content of the Intraoperative Record and any orders documented therein. Any exceptions are noted below.
--- NOTE | 2021-02-20 12:15 | Cardiology Progress Note ---
Date of Service February 20, 2021 Assessment & Plan (1) Acute on chronic systolic heart failure: (2) CAD (coronary artery disease): (3) Acute respiratory failure with hypoxia: (4) Back fracture: (5) Atrial fibrillation: Plan: [employer] single chamber pacer defibrillator in place Plan: Patient presenting for back pain, found to be in acute on chronic systolic HF with evidence of volume overload. He follows with outside cardiology group and records have been requested but not received. Echo consistent with ischemic cardiomyopathy with LVEF 25%. He has ICD in place. Patient reporting good diuresis since admission. (Unsure if I+O's are being measured). Blood pressures diminished slightly overnight in a.m. medications held. Creatinine has crept upwards. Records available revealed cardiology evaluation in November. Recommendations: Patient's relative hypotension improving Continue current dose of metoprolol Patient restarted on IV Lasix. Continued hyperkalemia, will not restart BRITTNEY inhibitor at this time Suspect patient will require home O2 Unclear as to why patient was not on anticoagulation previously given his history of A. fib. Follows with a fur dry cleaner hand in [place]. Patient unsure if ever on anticoagulation. Okay to DC telemetry from a cardiac standpoint. Admission and Anticipated Discharge Date Admission Date: February 14, 2021 Subjective Patient seen and examined, chart reviewed. States he feels the same today as he has for the last few days. No change in breathing and still with significant back pain. Denies chest pain, palpitations, lightheadedness, dizziness or syncope. Telemetry reviewed: Atrial fibrillation rate controlled Review of Systems Review of Systems: All systems reviewed & are unremarkable except as noted in HPI & below Physical Exam Physical Exam: General: Awake, alert and oriented x 3. No acute distress. HEENT: Normocephalic, atraumatic. Pupils equal, round and reactive to light and accommodation. Extraocular muscles are intact. Anicteric sclera. Moist mucous membranes. Neck: No JVD. No bruit. Cardiovascular: Regular. Positive S-4. Normal S-1 and S-2. No S-3. No murmurs or rubs. Pulmonary: Clear to auscultation B/L. No rales, rhonchi or wheezing Abdomen: Bowel sounds x 4, soft. No rebound, guarding or tenderness. No organomegaly. Extremities: No clubbing, cyanosis or edema. +2 pedal pulses bilaterally. Skin: Warm and dry. Results & Data ([facility]) Vital Signs (Past 12 Hours) Vital Signs Temp Pulse Pulse Resp BP Pulse Ox 02/20/21 11:52 37.0 C 62 18 137/70 02/20/21 08:00 64 02/20/21 07:46 36.8 C 78 20 125/69 98 02/20/21 03:54 36.8 C 61 19 102/64 96 (1) Back fracture Encounter type: initial encounter Fracture of vertebra location: lumbar
[2021-02-20] MEDS ORDERED: SODIUM POLYSTYRENE SULFONATE 15G/60ML SUSP PO STA (15:04)
--- NOTE | 2021-02-20 15:05 | Hospitalist Progress Note ---
Date of Service February 20, 2021 Assessment & Plan (1) Acute respiratory failure with hypoxia: Plan: Secondary to acute systolic heart failure exacerbation. Initially hypoxic at 83%, improved to 97% on 2L NC He has been saturating well with 2 L of nasal cannula oxygen. Will need ambulatory pulse ox prior to discharge. (2) Acute on chronic systolic heart failure: Plan: Patient follows with the cardiology office in [place]. EF 20 to 25% per Echo with ICD in place. Of note, hypotension has resolved with decrease in Toprol dose. Continue to hold lisinopril in setting of hyperkalemia. Volume overload on admission with patient doing well on current diuresis. Appreciate cardiology input. V Lasix restarted today. Continue low-salt diet. Continue to encourage mobilization of patient out of bed. (3) Lumbar compression fracture: Plan: Per notes available for review patient has frequent falls at home with chronic longstanding back pain. Patient endorses chronic longstanding back pain with recent worsening in the last 2 weeks. Imaging reveals acute lumbar (L2) compression fracture Given his poor medical condition TLSO was not prescribed and conservative management advised Has been getting lidocaine patch and on diclofenac gel--however pain was not well controlled. Continue with 50mg PRN. (4) Hyperkalemia: Plan: Uncertain etiology. Decreased renal potassium excretion from chronic renal failure is a consideration. Continue holding lisinopril and treating heart failure with more aggressive diuresis. We will order a dose of Kayexalate today. Repeat BMP later in the evening. (5) Ambulatory dysfunction: Plan: History of spinal stenosis, worsening pain and ambulatory dysfunction over the past month. Recurrent falls at home. Adding Lidocaine patch and scheduled Tylenol Fall precautions, PT/OT suggests SNF as transition to home. (6) CAD (coronary artery disease): Plan: History of CABG in 1994 at [place], follows with Dr. Holm of [facility] cardiology Has ICD placed No chest pain since admission Continue aspirin, Toprol, statin (7) COPD (chronic obstructive pulmonary disease): Plan: Quit smoking in 1988. Not on home O2. COPD appears to be at baseline. Continue Salmeterol inh BID (8) Atrial fibrillation: Plan: Per cardiology notes from November at [facility], patient has paroxysmal atrial fibrillation resulting in an inappropriate ICD shock which led to amiodarone therapy. Patient declines oral anticoagulation therapy. Rate is controlled with Toprol XL. (9) PAD (peripheral artery disease): Plan: H/o vascular intervention of bilateral femoral arteries per patient/notes. Records not available for review. Continue medical management with aspirin and statin. (10) Macrocytic anemia: Plan: Macrocytic anemia noted with an MCV of 112. Patient has a history of longstanding alcohol use, reportedly quitting approximately 5 years ago. Hemoglobin is stable. There is no evidence of B12 or folate deficiency on labs this admission. Follow-up as outpatient with primary care provider for further investigation as needed. Of note, patient denies any B symptoms today and reports weight loss when he stopped drinking 5 years ago with no fluctuating weight changes recently. (11) CKD (chronic kidney disease), stage III: Plan: Uncertain baseline patient does not follow in the [facility] [employer] system. His creatinine level has been stable over several days. (12) Noncompliance with medication regimen: Plan: Noted in outpatient notes. (13) DVT prophylaxis: Plan: SQ heparin Code status: FULL PCP: Hector (JARRETT Crouch) Dispo: Admitted to PCU. PT recommends rehab as a transition to home. Patient is currently considering this and working with case management. Admission and Anticipated Discharge Date Admission Date: February 14, 2021 Subjective Patient is doing okay this morning. Systolic blood pressures improved. Denies any significant shortness of breath or cough. His primary problem is back pain. Denies any chest pain, palpitations, nausea or vomiting. Review of Systems Review of Systems: All systems reviewed & are unremarkable except as noted in HPI & below Physical Exam Physical Exam: General: A&Ox2 HENT: NCAT, MMM, EOMI Eyes: PERRLA Neck: Supple, normal range of motion CVS: normal rate and rhythm Resp: b/l decrease breadth sounds Abdomen: Soft, ND/NT, +BS Extremities: No c/c/e Neuro: face symmetric, no focal deficit appreciated Skin: warm and dry, no rashes/lesions/errythema Results & Data Results & Data ([facility]) Vital Signs (Past 12 Hours) Vital Signs Temp Pulse Pulse Resp BP Pulse Ox 02/20/21 11:52 37.0 C 62 18 137/70 02/20/21 08:00 64 02/20/21 07:46 36.8 C 78 20 125/69 98 02/20/21 03:54 36.8 C 61 19 102/64 96
[2021-02-20 20:18] LABS: BUN Creatinine Ratio 45.8 (10-20); Calcium 8.5 mg/dl (8.5-10.1); Creatinine Clr Calc Pharmacy 48.3 ml/min; Est GFR (Non-African American) 50.9 ml/min; Potassium 5.5 mmol/L (3.5-5.1)
[2021-02-21] MEDS: HEPARIN SOD 5,000 UNIT/0.5 ML VIAL SQ SCH ×3 (05:41→20:57)
[2021-02-21 08:13] LABS: BUN Creatinine Ratio 45.1 (10-20); Calcium 8.6 mg/dl (8.5-10.1); Creatinine Clr Calc Pharmacy 49.1 ml/min; Est GFR (African American) 60.1 ml/min; Est GFR (Non-African American) 51.9 ml/min; Potassium 5.4 mmol/L (3.5-5.1)
[2021-02-21] MEDS: DICLOFENAC SOD 1% GEL 100 GM TUBE EXT SCH ×4 (08:26→20:57)
[2021-02-21] MEDS: OLODATEROL HCL 2.5MCG/ACTUATION 60 PUFFS/INHALER INH SCH (08:27)
[2021-02-21] MEDS: FUROSEMIDE 40 MG in SYRINGE 0 ML IV SCH (08:30)
[2021-02-21] MEDS: ASPIRIN 81 MG ECTAB PO SCH (08:30)
[2021-02-21] MEDS: AMIODARONE 200 MG TAB PO SCH (08:30)
[2021-02-21] MEDS: METOPROLOL SUCC 25MG EXT REL TAB PO SCH (08:31)
[2021-02-21] MEDS: ATORVASTATIN 40 MG TAB PO SCH (08:31)
[2021-02-21] MEDS: traMADol HCL 50 MG TABLET PO PRN (08:42)
--- NOTE | 2021-02-21 14:14 | Hospitalist Progress Note ---
Date of Service February 21, 2021 Assessment & Plan (1) Acute respiratory failure with hypoxia: Plan: Secondary to acute systolic heart failure exacerbation. Initially hypoxic at 83%, improved to 97% on 2L NC He has been saturating well with 2 L of nasal cannula oxygen. Will need ambulatory pulse ox prior to discharge. Work with PT/OT. (2) Acute on chronic systolic heart failure: Plan: Patient follows with the cardiology office in [place]. EF 20 to 25% per Echo with ICD in place. Of note, hypotension has resolved with decrease in Toprol dose. Continue to hold lisinopril in setting of hyperkalemia. Volume overload on admission with patient doing well on current diuresis. Appreciate cardiology input. Continue IV Lasix 40 mg daily. Continue low-salt diet. Continue to encourage mobilization of patient out of bed. (3) Lumbar compression fracture: Plan: Per notes available for review patient has frequent falls at home with chronic longstanding back pain. Patient endorses chronic longstanding back pain with recent worsening in the last 2 weeks. Imaging reveals acute lumbar (L2) compression fracture Given his poor medical condition TLSO was not prescribed and conservative management advised Has been getting lidocaine patch and on diclofenac gel--however pain was not well controlled. Continue with 50mg PRN. (4) Hyperkalemia: Plan: Uncertain etiology. Decreased renal potassium excretion from chronic renal failure is a consideration. Continue holding lisinopril and treating heart failure with more aggressive diuresis. Patient did receive a dose of Kayexalate on 02/20. Monitor daily BMP. (5) Ambulatory dysfunction: Plan: History of spinal stenosis, worsening pain and ambulatory dysfunction over the past month. Recurrent falls at home. Adding Lidocaine patch and scheduled Tylenol Fall precautions, PT/OT suggests SNF as transition to home. (6) CAD (coronary artery disease): Plan: History of CABG in 1994 at [place], follows with Dr. Holm of [facility] cardiology Has ICD placed No chest pain since admission Continue aspirin, Toprol, statin (7) COPD (chronic obstructive pulmonary disease): Plan: Quit smoking in 1988. Not on home O2. COPD appears to be at baseline. Continue Salmeterol inh BID (8) Atrial fibrillation: Plan: Per cardiology notes from November at [facility], patient has paroxysmal atrial fibrillation resulting in an inappropriate ICD shock which led to amiodarone therapy. Patient declines oral anticoagulation therapy. Rate is controlled with Toprol XL. (9) PAD (peripheral artery disease): Plan: H/o vascular intervention of bilateral femoral arteries per patient/notes. Records not available for review. Continue medical management with aspirin and statin. (10) Macrocytic anemia: Plan: Macrocytic anemia noted with an MCV of 112. Patient has a history of longstanding alcohol use, reportedly quitting approximately 5 years ago. Hemoglobin is stable. There is no evidence of B12 or folate deficiency on labs this admission. Follow-up as outpatient with primary care provider for further investigation as needed. Of note, patient denies any B symptoms today and reports weight loss when he stopped drinking 5 years ago with no fluctuating weight changes recently. (11) CKD (chronic kidney disease), stage III: Plan: Uncertain baseline patient does not follow in the [employer] system. His creatinine level has been stable over several days. (12) Noncompliance with medication regimen: Plan: Noted in outpatient notes. (13) DVT prophylaxis: Plan: SQ heparin Code status: FULL PCP: Hector ([facility]) Dispo: Continue to work with PT/OT. Patient has been accepted at facility. Insurance authorization is pending. Admission and Anticipated Discharge Date Admission Date: February 14, 2021 Subjective Patient is resting comfortably. Currently on 2 L of nasal cannula. Reports shortness of breath is about the same. Does report that his back is bothering him. Review of Systems Review of Systems: All systems reviewed & are unremarkable except as noted in HPI & below Physical Exam Physical Exam: General: A&Ox2 HENT: NCAT, MMM, EOMI Eyes: PERRLA Neck: Supple, normal range of motion CVS: normal rate and rhythm Resp: b/l decrease breadth sounds Abdomen: Soft, ND/NT, +BS Extremities: No c/c/e Neuro: face symmetric, no focal deficit appreciated Skin: warm and dry, no rashes/lesions/errythema Results & Data Results & Data ([facility]) Vital Signs (Past 12 Hours) Vital Signs Temp Pulse Pulse Resp BP Pulse Ox 02/21/21 11:34 36.4 C L 63 17 108/51 L 96 02/21/21 08:57 59 L 02/21/21 07:15 36.6 C 54 L 16 105/47 L 98 02/21/21 03:38 36.9 C 57 L 20 101/61 91
--- NOTE | 2021-02-21 14:22 | Cardiology Progress Note ---
Date of Service February 21, 2021 Assessment & Plan (1) Acute on chronic systolic heart failure: (2) CAD (coronary artery disease): (3) Acute respiratory failure with hypoxia: (4) Back fracture: (5) Atrial fibrillation: Plan: [employer] single chamber pacer defibrillator in place Plan: Patient presenting for back pain, found to be in acute on chronic systolic HF with evidence of volume overload. He follows with outside cardiology group and records have been requested but not received. Echo consistent with ischemic cardiomyopathy with LVEF 25%. He has ICD in place. Patient reporting good diuresis since admission. (Unsure if I+O's are being measured). Blood pressures diminished slightly overnight in a.m. medications held. Creatinine has crept upwards. Records available revealed cardiology evaluation in November. Recommendations: Patient's relative hypotension improving Continue current dose of metoprolol with parameters Patient restarted on IV Lasix. Continued hyperkalemia, will not restart BRITTNEY inhibitor at this time Suspect patient will require home O2 Unclear as to why patient was not on anticoagulation previously given his history of A. fib. Follows with a human resources analyst in [place]. Patient unsure if ever on anticoagulation. Okay to DC telemetry from a cardiac standpoint. Admission and Anticipated Discharge Date Admission Date: February 14, 2021 Subjective Patient seen and examined, chart reviewed. States no change compared to presentation. Shortness of breath continued with oxygen dependence. Still with significant back pain. Review of Systems Review of Systems: All systems reviewed & are unremarkable except as noted in HPI & below Physical Exam Physical Exam: General: Awake, alert and oriented x 3. No acute distress. HEENT: Normocephalic, atraumatic. Pupils equal, round and reactive to light and accommodation. Extraocular muscles are intact. Anicteric sclera. Moist mucous membranes. Neck: No JVD. No bruit. Cardiovascular: Regular. Positive S-4. Normal S-1 and S-2. No S-3. No murmurs or rubs. Pulmonary: Clear to auscultation B/L. No rales, rhonchi or wheezing Abdomen: Bowel sounds x 4, soft. No rebound, guarding or tenderness. No organomegaly. Extremities: No clubbing, cyanosis or edema. +2 pedal pulses bilaterally. Skin: Warm and dry. Results & Data ([facility]) Vital Signs (Past 12 Hours) Vital Signs Temp Pulse Pulse Resp BP Pulse Ox 02/21/21 11:34 36.4 C L 63 17 108/51 L 96 02/21/21 08:57 59 L 02/21/21 07:15 36.6 C 54 L 16 105/47 L 98 02/21/21 03:38 36.9 C 57 L 20 101/61 91 (1) Back fracture Encounter type: initial encounter Fracture of vertebra location: lumbar
[2021-02-22] MEDS: HEPARIN SOD 5,000 UNIT/0.5 ML VIAL SQ SCH ×3 (05:05→21:10)
[2021-02-22 06:58] LABS: Hematocrit (blood only) 39.5 % (42-52); Hemoglobin 12.1 g/dL (14.0-18.0); Mean Corpuscular Hemoglobin 35.3 pg (25-34); Mean Corpuscular Hgb Conc 30.6 g/dL (32-36); Mean Corpuscular Volume 115.2 fL (80-100); Mean Platelet Volume 10.2 fL (7.4-10.4); Platelet Count 139 K/uL (130-400); RDW Coefficient of Variation 14.8 % (11.5-14.5); RDW Standard Deviation 62.4 fL (36.4-46.3); Red Blood Count 3.43 M/uL (4.7-6.1)
[2021-02-22 07:27] LABS: BUN Creatinine Ratio 42.7 (10-20); Calcium 8.6 mg/dl (8.5-10.1); Est GFR (African American) 58.5 ml/min; Est GFR (Non-African American) 50.5 ml/min; Magnesium 2.5 mg/dl (1.8-2.4); Potassium 5.2 mmol/L (3.5-5.1)
[2021-02-22 07:28] LABS: Phosphorus 3.3 mg/dl (2.5-4.9)
[2021-02-22] MEDS: OLODATEROL HCL 2.5MCG/ACTUATION 60 PUFFS/INHALER INH SCH (08:31)
[2021-02-22] MEDS: FUROSEMIDE 40 MG in SYRINGE 0 ML IV SCH (08:32)
[2021-02-22] MEDS: METOPROLOL SUCC 25MG EXT REL TAB PO SCH (08:32)
[2021-02-22] MEDS: ATORVASTATIN 40 MG TAB PO SCH (08:34)
[2021-02-22] MEDS: ASPIRIN 81 MG ECTAB PO SCH (08:35)
[2021-02-22] MEDS: AMIODARONE 200 MG TAB PO SCH (08:35)
[2021-02-22] MEDS: DICLOFENAC SOD 1% GEL 100 GM TUBE EXT SCH ×4 (08:37→21:10)
--- NOTE | 2021-02-22 12:07 | Hospitalist Progress Note ---
Date of Service February 22, 2021 Assessment & Plan (1) Acute respiratory failure with hypoxia: Plan: Secondary to acute systolic heart failure exacerbation. Initially hypoxic at 83%, improved to 97% on 2L NC He has been saturating well with 2 L of nasal cannula oxygen. Will need ambulatory pulse ox prior to discharge. Work with PT/OT. (2) Acute on chronic systolic heart failure: Plan: Patient follows with the cardiology office in [place]. EF 20 to 25% per Echo with ICD in place. Of note, hypotension has resolved with decrease in Toprol dose. Continue to hold lisinopril in setting of hyperkalemia. Volume overload on admission with patient doing well on current diuresis. Appreciate cardiology input. Continue IV Lasix 40 mg daily. Continue low-salt diet. Continue to encourage mobilization of patient out of bed. (3) Lumbar compression fracture: Plan: Per notes available for review patient has frequent falls at home with chronic longstanding back pain. Patient endorses chronic longstanding back pain with recent worsening in the last 2 weeks. Imaging reveals acute lumbar (L2) compression fracture Given his poor medical condition TLSO was not prescribed and conservative management advised (seen by orthopedics) Has been getting lidocaine patch and on diclofenac gel--however pain was not well controlled. Continue with 50mg PRN. (4) Hyperkalemia: Plan: Uncertain etiology. Decreased renal potassium excretion from chronic renal f ailure is a consideration. Continue holding lisinopril and treating heart failure with more aggressive diuresis. Patient did receive a dose of Kayexalate on 02/20 and today. Monitor daily BMP. (5) Ambulatory dysfunction: Plan: History of spinal stenosis, worsening pain and ambulatory dysfunction over the past month. Recurrent falls at home. Adding Lidocaine patch and scheduled Tylenol Fall precautions, PT/OT suggests SNF as transition to home. (6) CAD (coronary artery disease): Plan: History of CABG in 1994 at [place], follows with Dr. Holm of [facility] cardiology Has ICD placed No chest pain since admission Continue aspirin, Toprol, statin (7) COPD (chronic obstructive pulmonary disease): Plan: Quit smoking in 1988. Not on home O2. COPD appears to be at baseline. Continue Salmeterol inh BID (8) Atrial fibrillation: Plan: Per cardiology notes from November at [facility], patient has paroxysmal atrial fibrillation resulting in an inappropriate ICD shock which led to amiodarone therapy. Patient declines oral anticoagulation therapy. Rate is controlled with Toprol XL. (9) PAD (peripheral artery disease): Plan: H/o vascular intervention of bilateral femoral arteries per patient/notes. Records not available for review. Continue medical management with aspirin and statin. (10) Macrocytic anemia: Plan: Macrocytic anemia noted with an MCV of 112. Patient has a history of longstanding alcohol use, reportedly quitting approximately 5 years ago. Hemoglobin is stable. There is no evidence of B12 or folate deficiency on labs this admission. Follow-up as outpatient with primary care provider for further investigation as needed. Of note, patient denies any B symptoms today and reports weight loss when he stopped drinking 5 years ago with no fluctuating weight changes recently. (11) CKD (chronic kidney disease), stage III: Plan: Uncertain baseline patient does not follow in the [facility] system. His creatinine level has been stable over several days. (12) Noncompliance with medication regimen: Plan: Noted in outpatient notes. (13) DVT prophylaxis: Plan: SQ heparin Code status: FULL [place]: [place] Dispo: Continue to work with PT/OT. Patient has been accepted at facility. Insurance authorization is pending. Admission and Anticipated Discharge Date Admission Date: February 14, 2021 Subjective Patient seen in follow-up of CHF Currently sitting up in the chair, in no acute distress, using oxygen via nasal cannula Reports some shortness of breath, he also reports that this has been going on for years No chest pain, no dizziness palpitations He does have lower extremity edema Review of Systems Review of Systems: All systems reviewed & are unremarkable except as noted in Subjective Physical Exam Physical Exam: General: Elderly male, in no acute distress, on nasal cannula HENT: NCAT, MMM, EOMI Eyes: PERRL Neck: Supple, normal range of motion CVS: normal rate and rhythm Resp: b/l decreased breadth sounds, no wheezing Abdomen: Soft, ND/NT, +BS Extremities: No c/c/e Neuro: Awake and alert, able to answer simple questions appropriately, face symmetric, speech slow but fluent, moves extremities Skin: warm and dry, no rashes/lesions/erythema Results & Data Results & Data ([facility]) Vital Signs (Past 12 Hours) Vital Signs Temp Pulse Pulse Pulse Resp BP BP 02/22/21 11:47 36.5 C 66 66 14 108/55 L 02/22/21 08:00 61 02/22/21 07:24 36.8 C 62 14 97/60 L 02/22/21 04:40 36.5 C 60 22 109/65 Pulse Ox 02/22/21 11:47 97 02/22/21 08:00 02/22/21 07:24 99 02/22/21 04:40 97 Laboratory Results 02/22/21 02/22/21 Range/Units 06:29 06:29 WBC 5.40 (4.8-10.8) K/uL RBC 3.43 L (4.7-6.1) M/uL Hgb 12.1 L (14.0-18.0) g/dL Hct 39.5 L (42-52) % MCV 115.2 H (80-100) fL MCH 35.3 H (25-34) pg MCHC 30.6 L (32-36) g/dL RDW Std Deviation 62.4 H (36.4-46.3) fL RDW Coeff of Patrizia 14.8 H (11.5-14.5) % Plt Count 139 (130-400) K/uL MPV 10.2 (7.4-10.4) fL Sodium 140 (136-145) mmol/L Potassium 5.2 H (3.5-5.1) mmol/L Chloride 107 (98-107) mmol/L Carbon Dioxide 31 (21-32) mmol/L Anion Gap 2.0 L (3-11) BUN 57 H (7-18) mg/dl Creatinine 1.33 (0.6-1.4) mg/dl Est Cr Clr Drug Dosing 48.0 ml/min Est GFR ( Amer) 58.5 ml/min Est GFR (Non-Af Amer) 50.5 ml/min BUN/Creatinine Ratio 42.7 H (10-20) Glucose 90 (70-99) mg/dl Calcium 8.6 (8.5-10.1) mg/dl Phosphorus 3.3 (2.5-4.9) mg/dl Magnesium 2.5 H (1.8-2.4) mg/dl Medications Administered Current Inpatient Medications Acetaminophen (Acetaminophen 500 Mg Tab) 1,000 mg PO Q8H PRN PRN Reason: Pain or Fever Stop: 03/16/21 16:41 Albuterol (Albut/Ipratrop 3mg/0.5mg Neb 3 Ml Vial) 3 ml NEB Q2H PRN PRN Reason: Wheezing Stop: 03/18/21 19:57 Last Admin: 02/19/21 05:25 Dose: 3 ml Documented by: Amiodarone HCl (Amiodarone 200 Mg Tab) 200 mg PO [facility] Stop: 03/17/21 08:59 Last Admin: 02/22/21 08:35 Dose: 200 mg Documented by: Aspirin (Aspirin 81 Mg Ectab) 81 mg PO [facility] Stop: 03/17/21 08:59 Last Admin: 02/22/21 08:35 Dose: 81 mg Documented by: Atorvastatin Calcium (Atorvastatin 40 Mg Tab) 40 mg PO [facility] Stop: 03/17/21 08:59 Last Admin: 02/22/21 08:34 Dose: 40 mg Documented by: Diclofenac Sodium (Diclofenac Sod 1% Gel 100 Gm Tube) 2 gm EXT QID [facility] Stop: 03/17/21 16:59 Last Admin: 02/22/21 08:37 Dose: 2 gm Documented by: Heparin Sodium (Porcine) (Heparin Sod 5,000 Unit/0.5 Ml Vial) 5,000 units SQ Q8 [facility] Stop: 03/16/21 16:41 Last Admin: 02/22/21 05:05 Dose: 5,000 units Documented by: Furosemide 40 mg/ Syringe 4 mls @ 4 mls/min IV DAILY [facility] Stop: 03/22/21 08:59 Last Admin: 02/22/21 08:32 Dose: 4 mls/min Documented by: Lisinopril (Lisinopril 10 Mg Tab) 10 mg PO [facility] Stop: 03/17/21 08:59 Last Admin: 02/17/21 10:22 Dose: Not Given Documented by: Metoprolol Succinate (Metoprolol Succ 25mg Ext Rel Tab) 12.5 mg PO [facility] Stop: 03/20/21 12:29 Last Admin: 02/22/21 08:32 Dose: 12.5 mg Documented by: Olodaterol (Olodaterol Hcl 2.5mcg/Actuation 60 Puffs/Inhaler) 2 puffs INH DAILY [facility]; Protocol Stop: 03/17/21 08:59 Last Admin: 02/22/21 08:31 Dose: 2 puffs Documented by: Ondansetron HCl (Ondansetron Inj 2 Mg/Ml 2 Ml Vial) 4 mg IV Q6H PRN PRN Reason: Nausea Stop: 03/16/21 16:41 Polyethylene Glycol (Polyethylene (Miralax) 17 Gm Pack) 17 gm PO DAILY PRN PRN Reason: Constipation Stop: 03/16/21 16:41 Last Admin: 02/19/21 12:15 Dose: 17 gm Documented by: Sodium Polystyrene Sulfonate (Sodium Polystyrene Sulfonate 15g/60ml Susp) 15 gm PO NOW STA Stop: 02/22/21 12:06 Tramadol HCl (Tramadol Hcl 50 Mg Tablet) 50 mg PO Q4H PRN PRN Reason: Pain Stop: 03/20/21 15:27 Last Admin: 02/21/21 08:42 Dose: 50 mg Documented by:
[2021-02-22] MEDS ORDERED: SODIUM POLYSTYRENE SULFONATE 15G/60ML SUSP PO STA (12:11)
[2021-02-22] MEDS: traMADol HCL 50 MG TABLET PO PRN (12:38)
[2021-02-22] MEDS: POLYETHYLENE (MIRALAX) 17 GM PACK PO PRN (12:38)
[2021-02-22] MEDS ORDERED: bisacodyL 10 MG SUPP PR STA (14:34)
[2021-02-22] MEDS: POLYETHYLENE (MIRALAX) 17 GM PACK PO SCH (15:56)
--- NOTE | 2021-02-22 16:48 | Cardiology Progress Note ---
Date of Service February 22, 2021 Assessment & Plan (1) Acute on chronic systolic heart failure: (2) CAD (coronary artery disease): (3) Acute respiratory failure with hypoxia: (4) Back fracture: (5) Atrial fibrillation: Plan: [employer] single chamber pacer defibrillator in place Plan: Patient presenting for back pain, found to be in acute on chronic systolic HF with evidence of volume overload. He follows with outside cardiology group and records have been requested but not received. Echo consistent with ischemic cardiomyopathy with LVEF 25%. He has ICD in place. Patient reporting good diuresis since admission. (Unsure if I+O's are being measured). Blood pressures diminished slightly overnight in a.m. medications held. Creatinine has crept upwards. Records available revealed cardiology evaluation in November. Recommendations: Patient's relative hypotension improving Continue current dose of metoprolol with parameters Patient restarted on IV Lasix. Continued hyperkalemia, will not restart BRITTNEY inhibitor at this time Suspect patient will require home O2 Unclear as to why patient was not on anticoagulation previously given his history of A. fib. 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 Patient unsure if ever on anticoagulation. Okay to DC telemetry from a cardiac standpoint. Admission and Anticipated Discharge Date Admission Date: February 14, 2021 Subjective Patient seen and examined, chart reviewed. States no change compared to presentation. Shortness of breath continued with oxygen dependence. Still with significant back pain. Review of Systems Review of Systems: All systems reviewed & are unremarkable except as noted in HPI & below Physical Exam Physical Exam: General: Awake, alert and oriented x 3. No acute distress. HEENT: Normocephalic, atraumatic. Pupils equal, round and reactive to light and accommodation. Extraocular muscles are intact. Anicteric sclera. Moist mucous membranes. Neck: No JVD. No bruit. Cardiovascular: Regular. Positive S-4. Normal S-1 and S-2. No S-3. No murmurs or rubs. Pulmonary: Clear to auscultation B/L. No rales, rhonchi or wheezing Abdomen: Bowel sounds x 4, soft. No rebound, guarding or tenderness. No organomegaly. Extremities: No clubbing, cyanosis or edema. +2 pedal pulses bilaterally. Skin: Warm and dry. Results & Data ([facility]) Vital Signs (Past 12 Hours) Vital Signs Temp Pulse Pulse Pulse Resp BP BP 02/22/21 15:46 36.5 C 125 H 18 125/65 02/22/21 11:47 36.5 C 66 66 14 108/55 L 02/22/21 08:00 61 02/22/21 07:24 36.8 C 62 14 97/60 L Pulse Ox 02/22/21 15:46 93 02/22/21 11:47 97 02/22/21 08:00 02/22/21 07:24 99 (1) Back fracture Encounter type: initial encounter Fracture of vertebra location: lumbar
[2021-02-23] MEDS: HEPARIN SOD 5,000 UNIT/0.5 ML VIAL SQ SCH ×3 (05:26→20:55)
[2021-02-23 08:44] LABS: BUN Creatinine Ratio 47.6 (10-20); Creatinine Clr Calc Pharmacy 51.4 ml/min; Est GFR (African American) 63.7 ml/min; Est GFR (Non-African American) 54.9 ml/min; Magnesium 2.4 mg/dl (1.8-2.4); Potassium 4.8 mmol/L (3.5-5.1)
[2021-02-23] MEDS: METOPROLOL SUCC 25MG EXT REL TAB PO SCH (09:14)
[2021-02-23] MEDS: ATORVASTATIN 40 MG TAB PO SCH (09:15)
[2021-02-23] MEDS: AMIODARONE 200 MG TAB PO SCH (09:15)
[2021-02-23] MEDS: ASPIRIN 81 MG ECTAB PO SCH (09:16)
[2021-02-23] MEDS: OLODATEROL HCL 2.5MCG/ACTUATION 60 PUFFS/INHALER INH SCH (09:18)
[2021-02-23] MEDS: DICLOFENAC SOD 1% GEL 100 GM TUBE EXT SCH ×4 (09:19→20:54)
[2021-02-23] MEDS: FUROSEMIDE 40 MG in SYRINGE 0 ML IV SCH (09:22)
[2021-02-23] MEDS: POLYETHYLENE (MIRALAX) 17 GM PACK PO SCH (10:02)
--- NOTE | 2021-02-23 10:39 | Cardiology Progress Note ---
Date of Service February 23, 2021 Assessment & Plan (1) Acute on chronic systolic heart failure: (2) CAD (coronary artery disease): (3) Acute respiratory failure with hypoxia: (4) Back fracture: (5) Atrial fibrillation: Plan: [employer] single chamber pacer defibrillator in place Plan: Patient presenting for back pain, found to be in acute on chronic systolic HF with evidence of volume overload. He follows with outside cardiology group and records have been requested but not received. Echo consistent with ischemic cardiomyopathy with LVEF 25%. He has ICD in place. Patient reporting good diuresis since admission. (Unsure if I+O's are being measured). Blood pressures diminished slightly overnight in a.m. medications held. Creatinine has crept upwards. Records available revealed cardiology evaluation in November. Recommendations: Patient's relative hypotension stable Continue current dose of metoprolol with parameters Patient restarted on IV Lasix.Still with lower extremity edema but suspect this is chronic. Blood work reveals he is still significantly prerenal but potassium has now normalized. Recommend changing Lasix to oral 40 mg daily. hyperkalemia, will not restart BRITTNEY inhibitor at this time Suspect patient will require home O2 Unclear as to why patient was not on anticoagulation previously given his history of A. fib. Follows with a carton stenciler in [place]. If no indications would recommend the patient be placed on Eliquis 5 mg p.o. twice daily Patient unsure if ever on anticoagulation. Okay to DC telemetry from a cardiac standpoint. Recommend follow-up with primary carton stenciler as an outpatient. Admission and Anticipated Discharge Date Admission Date: February 14, 2021 Subjective Patient seen and examined, chart reviewed. Currently out of bed in chair states he feels the same as he did yesterday. Review of Systems Review of Systems: All systems reviewed & are unremarkable except as noted in HPI & below Physical Exam Physical Exam: General: Awake, alert and oriented x 3. No acute distress. HEENT: Normocephalic, atraumatic. Pupils equal, round and reactive to light and accommodation. Extraocular muscles are intact. Anicteric sclera. Moist mucous membranes. Neck: No JVD. No bruit. Cardiovascular: Regular. Positive S-4. Normal S-1 and S-2. No S-3. No murmurs or rubs. Pulmonary: Clear to auscultation B/L. No rales, rhonchi or wheezing Abdomen: Bowel sounds x 4, soft. No rebound, guarding or tenderness. No organomegaly. Extremities: No clubbing, cyanosis or edema. +2 pedal pulses bilaterally. Skin: Warm and dry. Results & Data ([facility]) Vital Signs (Past 12 Hours) Vital Signs Temp Pulse Pulse Resp BP BP Pulse Ox 02/23/21 07:35 96 02/23/21 07:33 36.8 C 78 20 100/52 L 85 L 02/23/21 05:41 61 02/23/21 04:24 37 C 69 18 93/52 L 97 02/22/21 23:20 36.4 C L 65 18 107/54 L 92 (1) Back fracture Encounter type: initial encounter Fracture of vertebra location: lumbar
--- NOTE | 2021-02-23 18:13 | Hospitalist Progress Note ---
Date of Service February 23, 2021 Assessment & Plan (1) Acute respiratory failure with hypoxia: Plan: Secondary to acute systolic heart failure exacerbation. Initially hypoxic at 83%, improved to 97% on 2L NC He has been saturating well with 2 L of nasal cannula oxygen. Will need ambulatory pulse ox prior to discharge. Work with PT/OT. (2) Acute on chronic systolic heart failure: Plan: Patient follows with the cardiology office in [place]. EF 20 to 25% per Echo with ICD in place. Of note, hypotension has resolved with decrease in Toprol dose (12.5 mg daily). Continue to hold lisinopril in setting of hyperkalemia. Volume overload on admission with patient doing well on current diuresis. Appreciate cardiology input. Continued IV Lasix 40 mg daily now switched to 40 mg daily p.o. Continue low-salt diet. Continue to encourage mobilization of patient out of bed. (3) Lumbar compression fracture: Plan: Per notes available for review patient has frequent falls at home with chronic longstanding back pain. Patient endorses chronic longstanding back pain with recent worsening in the last 2 weeks. Imaging reveals acute lumbar (L2) compression fracture Given his poor medical condition TLSO was not prescribed and conservative manag ement advised (seen by orthopedics) Has been getting lidocaine patch and on diclofenac gel--however pain was not well controlled. Continue with 50mg PRN. (4) Hyperkalemia: Plan: Uncertain etiology. Decreased renal potassium excretion from chronic renal failure is a consideration. Continue holding lisinopril and treating heart failure with more aggressive diuresis. Patient did receive a dose of Kayexalate on 02/20 and 02/22. Monitor daily BMP. (5) Ambulatory dysfunction: Plan: History of spinal stenosis, worsening pain and ambulatory dysfunction over the past month. Recurrent falls at home. Adding Lidocaine patch and scheduled Tylenol Fall precautions, PT/OT suggests SNF as transition to home. (6) CAD (coronary artery disease): Plan: History of CABG in 1994 at [place], follows with Dr. Holm of [facility] cardiology Has ICD placed No chest pain since admission Continue aspirin, Toprol, statin (7) COPD (chronic obstructive pulmonary disease): Plan: Quit smoking in 1988. Not on home O2. COPD appears to be at baseline. Continue Salmeterol inh BID (8) Atrial fibrillation: Plan: Per cardiology notes from November at [facility], patient has paroxysmal atrial fibrillation resulting in an inappropriate ICD shock which led to amiodarone therapy. Patient declines oral anticoagulation therapy. Rate is controlled with Toprol XL (now dose decreased at 12.5 mg). (9) PAD (peripheral artery disease): Plan: H/o vascular intervention of bilateral femoral arteries per patient/notes. Records not available for review. Continue medical management with aspirin and statin. (10) Macrocytic anemia: Plan: Macrocytic anemia noted with an MCV of 112. Patient has a history of longst anding alcohol use, reportedly quitting approximately 5 years ago. Hemoglobin is stable. There is no evidence of B12 or folate deficiency on labs this admission. Follow-up as outpatient with primary care provider for further investigation as needed. Of note, patient denies any B symptoms today and reports weight loss when he stopped drinking 5 years ago with no fluctuating weight changes recently. (11) CKD (chronic kidney disease), stage III: Plan: Uncertain baseline patient does not follow in the [facility] system. His cr eatinine level has been stable over several days. (12) Noncompliance with medication regimen: Plan: Noted in outpatient notes. (13) DVT prophylaxis: Plan: SQ heparin Code status: FULL PCP: Hector (JARRETT Crouch) Dispo: Continue to work with PT/OT. Patient has been accepted at facility. Insurance authorization is pending. Admission and Anticipated Discharge Date Admission Date: February 14, 2021 Subjective Patient seen in follow-up of CHF Currently sitting up in the chair, in no acute distress, using oxygen via nasal cannula Currently no complaints, no chest pain, increased shortness of breath, dizziness or palpitations Reports he always has some shortness of breath, for years He does have some lower extremity edema, seems improved Review of Systems Review of Systems: All systems reviewed & are unremarkable except as noted in Subjective Physical Exam Physical Exam: General: Elderly male, in no acute distress, on nasal cannula HENT: NCAT, MMM, EOMI Eyes: PERRL Neck: Supple, normal range of motion CVS: normal rate and rhythm Resp: b/l decreased breadth sounds, no wheezing Abdomen: Soft, ND/NT, +BS Extremities: No c/c/e Neuro: Awake and alert, able to answer simple questions appropriately, face symmetric, speech slow but fluent, moves extremities Skin: warm and dry, no rashes/lesions/erythema Results & Data Results & Data ([facility]) Vital Signs (Past 12 Hours) Vital Signs Temp Pulse Pulse Resp BP Pulse Ox 02/23/21 15:38 72 02/23/21 11:26 36.3 C L 73 20 102/63 96 02/23/21 10:33 68 02/23/21 07:35 96 02/23/21 07:33 36.8 C 78 20 100/52 L 85 L 02/23/21 06:30 36.8 C 70 18 110/66 99 Medications Administered Current Inpatient Medications Acetaminophen (Acetaminophen 500 Mg Tab) 1,000 mg PO Q8H PRN PRN Reason: Pain or Fever Stop: 03/16/21 16:41 Albuterol (Albut/Ipratrop 3mg/0.5mg Neb 3 Ml Vial) 3 ml NEB Q2H PRN PRN Reason: Wheezing Stop: 03/18/21 19:57 Last Admin: 02/19/21 05:25 Dose: 3 ml Documented by: Atorvastatin Calcium (Atorvastatin 40 Mg Tab) 40 mg PO QAM [facility] Stop: 03/17/21 08:59 Last Admin: 02/23/21 09:15 Dose: 40 mg Documented by: Diclofenac Sodium (Diclofenac Sod 1% Gel 100 Gm Tube) 2 gm EXT QID [facility] Stop: 03/17/21 16:59 Last Admin: 02/23/21 20:54 Dose: Not Given Documented by: Furosemide (Furosemide 40 Mg Tab) 40 mg PO QAM [facility] Stop: 03/26/21 08:59 Heparin Sodium (Porcine) (Heparin Sod 5,000 Unit/0.5 Ml Vial) 5,000 units SQ Q8 [facility] Stop: 03/16/21 16:41 Last Admin: 02/24/21 06:35 Dose: 5,000 units Documented by: Metoprolol Succinate (Metoprolol Succ 25mg Ext Rel Tab) [facility] Stop: 03/20/21 12:29 Last Admin: 02/23/21 09:14 Dose: 12.5 mg Documented by: Olodaterol (Olodaterol Hcl 2.5mcg/Actuation 60 Puffs/Inhaler) 2 puffs INH DAILY [facility]; Protocol Stop: 03/17/21 08:59 Last Admin: 02/23/21 09:18 Dose: 2 puffs Documented by: Ondansetron HCl (Ondansetron Inj 2 Mg/Ml 2 Ml Vial) 4 mg IV Q6H PRN PRN Reason: Nausea Stop: 03/16/21 16:41 Polyethylene Glycol (Polyethylene (Miralax) 17 Gm Pack) 17 gm PO DAILY [facility] Stop: 03/24/21 14:44 Last Admin: 02/23/21 10:02 Dose: Not Given Documented by: Tramadol HCl (Tramadol Hcl 50 Mg Tablet) 50 mg PO Q4H PRN PRN Reason: Pain Stop: 03/20/21 15:27 Last Admin: 02/24/21 06:31 Dose: 50 mg Documented by:
[2021-02-24] MEDS: traMADol HCL 50 MG TABLET PO PRN (06:31)
[2021-02-24] MEDS: HEPARIN SOD 5,000 UNIT/0.5 ML VIAL SQ SCH ×3 (06:35→20:53)
[2021-02-24 08:21] LABS: BUN Creatinine Ratio 50.9 (10-20); Calcium 8.6 mg/dl (8.5-10.1); Creatinine Clr Calc Pharmacy 54.5 ml/min; Est GFR (African American) 68.3 ml/min; Est GFR (Non-African American) 58.9 ml/min; Potassium 4.3 mmol/L (3.5-5.1)
[2021-02-24] MEDS: DICLOFENAC SOD 1% GEL 100 GM TUBE EXT SCH ×4 (08:25→20:53)
[2021-02-24] MEDS: ATORVASTATIN 40 MG TAB PO SCH (08:25)
[2021-02-24] MEDS: FUROSEMIDE 40 MG TAB PO SCH (08:27)
[2021-02-24] MEDS: OLODATEROL HCL 2.5MCG/ACTUATION 60 PUFFS/INHALER INH SCH (08:28)
[2021-02-24] MEDS: POLYETHYLENE (MIRALAX) 17 GM PACK PO SCH (08:28)
--- NOTE | 2021-02-24 08:51 | Hospitalist Progress Note ---
Date of Service February 24, 2021 Assessment & Plan (1) Acute respiratory failure with hypoxia: Plan: Secondary to acute systolic heart failure exacerbation. Initially hypoxic at 83%, improved to 97% on 2L NC He has been saturating well with 2 L of nasal cannula oxygen. Will need ambulatory pulse ox prior to discharge. Work with PT/OT. (2) Acute on chronic systolic heart failure: Plan: Patient follows with the cardiology office in [place]. EF 20 to 25% per Echo with ICD in place. Of note, hypotension has resolved with decrease in Toprol dose (12.5 mg daily). Continue to hold lisinopril in setting of hyperkalemia. Volume overload on admission with patient doing well on current diuresis. Appreciate cardiology input. Continued IV Lasix 40 mg daily now switched to 40 mg daily p.o. Continue low-salt diet. Continue to encourage mobilization of patient out of bed. (3) Lumbar compression fracture: Plan: Per notes available for review patient has frequent falls at home with chronic longstanding back pain. Patient endorses chronic longstanding back pain with recent worsening in the last 2 weeks. Imaging reveals acute lumbar (L2) compression fracture Given his poor medical condition TLSO was not prescribed and conservative manag ement advised (seen by orthopedics) Has been getting lidocaine patch and on diclofenac gel--however pain was not well controlled. Continue with tramadol 50mg PRN. (4) Hyperkalemia: Plan: Uncertain etiology. Decreased renal potassium excretion from chronic renal failure is a consideration. Continue holding lisinopril and treating heart failure with more aggressive diuresis. Patient did receive a dose of Kayexalate on 02/20 and 02/22. Monitor daily BMP. (5) Ambulatory dysfunction: Plan: History of spinal stenosis, worsening pain and ambulatory dysfunction over the past month. Recurrent falls at home. Adding Lidocaine patch and scheduled Tylenol Fall precautions, PT/OT suggests SNF as transition to home. (6) CAD (coronary artery disease): Plan: History of CABG in 1994 at [place], follows with Dr. Holm of [facility] cardiology Has ICD placed No chest pain since admission Continue aspirin, Toprol, statin Recommend to follow up w/ outpt cardiology after DC (7) COPD (chronic obstructive pulmonary disease): Plan: Quit smoking in 1988. Not on home O2. COPD appears to be at baseline. Continue Salmeterol inh BID (8) Atrial fibrillation: Plan: Per cardiology notes from November at [facility], patient has paroxysmal atrial fibrillation resulting in an inappropriate ICD shock which led to amiodarone therapy. Patient declines oral anticoagulation therapy. Rate is controlled with Toprol XL (now dose decreased at 12.5 mg). (9) PAD (peripheral artery disease): Plan: H/o vascular intervention of bilateral femoral arteries per patient/notes. Records not available for review. Continue medical management with aspirin and statin. (10) Macrocytic anemia: Plan: Macrocytic anemia noted with an MCV of 112. Patient has a history of longstanding alcohol use, reportedly quitting approximately 5 years ago. Hemoglobin is stable. There is no evidence of B12 or folate deficiency on labs this admission. Follow-up as outpatient with primary care provider for further investigation as needed. Of note, patient denies any B symptoms today and reports weight loss when he stopped drinking 5 years ago with no fluctuating weight changes recently. (11) CKD (chronic kidney disease), stage III: Plan: Uncertain baseline patient does not follow in the [facility] system. His creatinine level has been stable over several days. (12) Noncompliance with medication regimen: Plan: Noted in outpatient notes. (13) DVT prophylaxis: Plan: SQ heparin Code status: FULL PCP: Hector (JARRETT Crouch) Dispo: Continue to work with PT/OT. Patient to be discharged to [place] tomorrow. Admission and Anticipated Discharge Date Admission Date: February 14, 2021 Subjective Patient seen in follow-up of CHF Currently sitting up in the chair, in no acute distress, using oxygen via nasal cannula Currently no complaints, no chest pain, increased shortness of breath, dizziness or palpitations Reports he always has some shortness of breath, for years He does have some lower extremity edema, seems improved Review of Systems Review of Systems: All systems reviewed & are unremarkable except as noted in Subjective Physical Exam Physical Exam: General: Elderly male, in no acute distress, on nasal cannula HENT: NCAT, MMM, EOMI Eyes: PERRL Neck: Supple, normal range of motion CVS: normal rate and rhythm Resp: b/l decreased breadth sounds, no wheezing Abdomen: Soft, ND/NT, +BS Extremities: No c/c/e Neuro: Awake and alert, able to answer simple questions appropriately, face symmetric, speech slow but fluent, moves extremities Skin: warm and dry, no rashes/lesions/erythema Results & Data Results & Data ([facility]) Vital Signs (Past 12 Hours) Vital Signs Temp Pulse Pulse Resp BP BP Pulse Ox 02/24/21 08:01 36.4 C L 73 18 105/59 L 98 02/24/21 07:42 73 02/24/21 04:37 72 02/24/21 04:00 36.7 C 71 20 125/62 94 02/23/21 22:52 36.7 C 71 19 100/53 L Laboratory Results 02/24/21 Range/Units 07:32 Sodium 142 (136-145) mmol/L Potassium 4.3 (3.5-5.1) mmol/L Chloride 106 (98-107) mmol/L Carbon Dioxide 32 (21-32) mmol/L Anion Gap 4.0 (3-11) BUN 60 H (7-18) mg/dl Creatinine 1.17 (0.6-1.4) mg/dl Est Cr Clr Drug Dosing 54.5 ml/min Est GFR ( Amer) 68.3 ml/min Est GFR (Non-Af Amer) 58.9 ml/min BUN/Creatinine Ratio 50.9 H (10-20) Glucose 95 (70-99) mg/dl Calcium 8.6 (8.5-10.1) mg/dl Medications Administered Current Inpatient Medications Acetaminophen (Acetaminophen 500 Mg Tab) 1,000 mg PO Q8H PRN PRN Reason: Pain or Fever Stop: 03/16/21 16:41 Albuterol (Albut/Ipratrop 3mg/0.5mg Neb 3 Ml Vial) 3 ml NEB Q2H PRN PRN Reason: Wheezing Stop: 03/18/21 19:57 Last Admin: 02/19/21 05:25 Dose: 3 ml Documented by: Amiodarone HCl (Amiodarone 200 Mg Tab) [facility] Stop: 03/17/21 08:59 Last Admin: 02/23/21 09:15 Dose: 200 mg Documented by: Atorvastatin Calcium (Atorvastatin 40 Mg Tab) 40 mg PO QAM [facility] Stop: 03/17/21 08:59 Last Admin: 02/24/21 08:25 Dose: 40 mg Documented by: Diclofenac Sodium (Diclofenac Sod 1% Gel 100 Gm Tube) 2 gm EXT QID [facility] Stop: 03/17/21 16:59 Last Admin: 02/24/21 08:25 Dose: 2 gm Documented by: Furosemide (Furosemide 40 Mg Tab) 40 mg PO QAM [facility] Stop: 03/26/21 08:59 Last Admin: 02/24/21 08:27 Dose: 40 mg Documented by: Heparin Sodium (Porcine) (Heparin Sod 5,000 Unit/0.5 Ml Vial) 5,000 units SQ Q8 [facility] Stop: 03/16/21 16:41 Last Admin: 02/24/21 06:35 Dose: 5,000 units Documented by: Metoprolol Succinate (Metoprolol Succ 25mg Ext Rel Tab) 12.5 mg PO QAM [facility] Stop: 03/20/21 12:29 Last Admin: 02/23/21 09:14 Dose: 12.5 mg Documented by: Olodaterol (Olodaterol Hcl 2.5mcg/Actuation 60 Puffs/Inhaler) 2 puffs INH DAILY [facility]; Protocol Stop: 03/17/21 08:59 Last Admin: 02/24/21 08:28 Dose: 2 puffs Documented by: Ondansetron HCl (Ondansetron Inj 2 Mg/Ml 2 Ml Vial) 4 mg IV Q6H PRN PRN Reason: Nausea Stop: 03/16/21 16:41 Polyethylene Glycol (Polyethylene (Miralax) 17 Gm Pack) 17 gm PO DAILY [facility] Stop: 03/24/21 14:44 Last Admin: 02/24/21 08:28 Dose: 17 gm Documented by: Tramadol HCl (Tramadol Hcl 50 Mg Tablet) 50 mg PO Q4H PRN PRN Reason: Pain Stop: 03/20/21 15:27 Last Admin: 02/24/21 06:31 Dose: 50 mg Documented by:
[2021-02-24] MEDS: METOPROLOL SUCC 25MG EXT REL TAB PO SCH (09:21)
[2021-02-24] MEDS: AMIODARONE 200 MG TAB PO SCH (09:21)
[2021-02-24] MEDS: ALBUT/IPRATROP 3MG/0.5MG NEB 3 ML VIAL NEB PRN (17:16)
[2021-02-25] MEDS: HEPARIN SOD 5,000 UNIT/0.5 ML VIAL SQ SCH (06:27)
[2021-02-25] MEDS: OLODATEROL HCL 2.5MCG/ACTUATION 60 PUFFS/INHALER INH SCH (08:18)
[2021-02-25] MEDS: POLYETHYLENE (MIRALAX) 17 GM PACK PO SCH (08:18)
[2021-02-25] MEDS: FUROSEMIDE 40 MG TAB PO SCH (08:22)
[2021-02-25] MEDS: ATORVASTATIN 40 MG TAB PO SCH (08:23)
[2021-02-25] MEDS: AMIODARONE 200 MG TAB PO SCH (08:23)
[2021-02-25] MEDS: METOPROLOL SUCC 25MG EXT REL TAB PO SCH (08:23)
[2021-02-25] MEDS: DICLOFENAC SOD 1% GEL 100 GM TUBE EXT SCH (08:24)
[2021-02-25 09:49] LABS: BUN Creatinine Ratio 48.2 (10-20); Calcium 8.6 mg/dl (8.5-10.1); Creatinine Clr Calc Pharmacy 54.1 ml/min; Est GFR (African American) 67.6 ml/min; Est GFR (Non-African American) 58.3 ml/min; Magnesium 2.3 mg/dl (1.8-2.4); Potassium 4.5 mmol/L (3.5-5.1)
--- NOTE | 2021-02-25 09:53 | Hospitalist Progress Note ---
Date of Service February 25, 2021 Assessment & Plan (1) Acute respiratory failure with hypoxia: Plan: Secondary to acute systolic heart failure exacerbation. Initially hypoxic at 83%, improved to 97% on 2L NC Continue supplemental oxygen as needed (2) Acute on chronic systolic heart failure: Plan: Patient follows with the cardiology office in [place]. EF 20 to 25% per Echo S/P ICD Lasix dose increased to 40 mg daily Continue low-salt diet Needs follow-up with cardiology upon discharge Metoprolol dose decreased to 12.5 mg daily Monitor volume status, I's and O's, daily weight (3) Lumbar compression fracture: Plan: As per Prior hospitalist H/O frequent falls at home with chronic longstanding back pain. Imaging reveals acute lumbar (L2) compression fracture Given his poor medical condition TLSO was not prescribed and conservative management advised (seen by orthopedics) Continue with tramadol 50mg PRN. Appreciate orthopedics input PT OT SNF as able (4) Hyperkalemia: Plan: Uncertain etiology. Lisinopril discontinued Also received IV diuretics, Kayexalate Monitor (5) Ambulatory dysfunction: Plan: History of spinal stenosis, worsening pain and ambulatory dysfunction over the past month. Recurrent falls at home. Fall precautions PT/OT SNF (6) CAD (coronary artery disease): Plan: H/O CABG in 1994 at [place], follows with Dr. Holm of [facility] cardiology Has ICD placed Continue aspirin, Toprol, statin Needs follow-up with cardiology upon discharge (7) COPD (chronic obstructive pulmonary disease): Plan: Quit smoking in 1988. Not on home O2. No signs of COPD Exacerbation Continue Salmeterol (8) Atrial fibrillation: Plan: Per cardiology notes from November at [facility], patient has paroxysmal atrial fibrillation resulting in an inappropriate ICD shock which led to amiodarone therapy. Started on Eliquis. No bleeding issues previously (Checked with patient and family). Patient agrees with management. Rate is controlled with Toprol XL (now dose decreased at 12.5 mg). Also on Amiodarone (9) PAD (peripheral artery disease): Plan: H/o vascular intervention of bilateral femoral arteries per patient/notes. Continue aspirin and statin. (10) Macrocytic anemia: Plan: Macrocytic anemia H/O longstanding alcohol use, reportedly quitting approximately 5 years ago. Hemoglobin is stable. No evidence of B12 or folate deficiency on labs Follow-up as outpatient with primary care provider for further investigation (11) CKD (chronic kidney disease), stage III: Plan: Unknown baseline Cr stable (12) Noncompliance with medication regimen: Plan: Noted in outpatient notes. (13) DVT prophylaxis: Plan: SQ heparin Code status: FULL CODE Disposition SNF Admission and Anticipated Discharge Date Admission Date: February 14, 2021 Subjective Patient is seen and examined at bedside Denies any dyspnea Minimal back pain with ambulation Also denies chest pain, dizziness, nausea, vomiting, abdominal pain Eager to get discharged to SNF Review of Systems Review of Systems: All systems reviewed & are unremarkable except as noted in Subjective Physical Exam Physical Exam: Physical Exam: Vitals signs as noted above General Appearance:Thin, frail, elderly no apparent distress Head: normocephalic, Atraumatic Eyes: normal inspection, EOMI Neck: supple, Trachea midline Respiratory/Chest: Decreased breath sounds, Scattered crackles, No accessory muscle use Cardiovascular: S1, S2, No murmur Abdomen/GI:Soft, Non tender, Bowel sounds present Extremities/Musculoskeletal:normal inspection, 1-2+ B/L LE edema Neurologic/Psych:AAOX3, grossly no focal neurological deficits Skin: normal color, warm Results & Data Results & Data ([facility]) Vital Signs (Past 12 Hours) Vital Signs Temp Pulse Pulse Resp BP Pulse Ox 02/25/21 07:42 36.5 C 72 18 110/62 95 02/25/21 03:00 36.7 C 70 20 97/53 L 93 02/25/21 00:25 70 02/24/21 23:01 36.4 C L 69 20 96/50 L 92 Laboratory Results [facility] 02/25/21 07:41 Sodium 140 Potassium 4.5 Chloride 106 Carbon Dioxide 31 BUN 57 H Creatinine 1.18 Glucose 92 Calcium 8.6
[2021-02-25] MEDS ORDERED: APIXABAN 5 MG TABLET PO SCH (10:15)
--- NOTE | 2021-02-25 10:18 | Discharge Summary ---
Date of Service February 25, 2021 Admission HPI Per Admitting Provider This is a 80yo M with a PMH of CAD (s/p CABG in 1994 in [place]), PAD (s/p bilateral femoral stents), COPD, atrial fibrillation and other medical problems listed below who presents with worsening back pain over the past week. Patient has had back pain for years and was evaluated by Dr. Sawant approximately 5 years ago and told to proceed with medical management for that time. Patient had a fall at the beginning of the month. thinks patient is weaker than he used to be and is unable to lower himself down slowly into chairs and onto the toilet, resulting in him "slamming down" and aggravating back pain. Since then, patient has had worsening lower back pain near his waistband and is also having trouble with ambulation. Denies any bowel or bladder incontinence, saddle anesthesia, numbness or pain in lower extremities. Has not been taking anything for pain. Also has history of CAD and CHF. Follows with canvas worker apprentice Dr. Holm at [facility]. Unsure when last echocardiogram was performed. Has a defibrillator - most recent one placed 4 years ago. Unsure of reason why. Takes 20mg Lasix daily. Notes increased volume lower extremities. states patient has lost weight overall. Denies any shortness of breath, orthopnea or PND. Patient states he is chronically short of breath with COPD but that he had not noticed it was worse than baseline before coming in. Does n ot require home oxygen. Denies fever, chills, congestion, chest pain, palpitations, wheezing, nausea, vomiting, abdominal pain, dysuria, diarrhea constipation. Patient receives primary care in [place], [place]. Admission Exam Per Admitting Provider Physical Exam Physical Exam: General Appearance: vitals as above, appears chronically ill, sitting up in bed, pleasant, conversing easily Head: normocephalic, atraumatic Eyes: normal inspection, PERRL, conjunctivae normal, anicteric sclerae ENT: external ear and nose normal, oropharynx normal Neck: normal visual inspection, trachea midline, no thyromegaly Respiratory: normal respiratory effort, bibasilar rales, no wheeze or rhonchi. No accessory muscle use Cardiovascular: regular rate, rhythm, no murmur, normal peripheral pulses, 2+ BLE edema. Vessels: no JVD Chest: normal inspection of chest Abdomen/GI: normal bowel sounds, soft, nontender, no hepatosplenomegaly Extremities/Musculoskeletal: no cyanosis or clubbing, extremities motor strength 5/5 Neurologic: PERRL, EOMI, accommodation nl, no face palsy, no dysarthria, CN's II-XI intact bilaterally and moves all extremities Psychiatric: A+Ox3, euthymic affect, poor insight Skin: no rashes, normal color, warm/dry Principal Diagnosis Acute on chronic systolic heart failure Hypoxia Lumbar compression fracture COPD Discharge Data Allergies Allergy/AdvReac Type Severity Reaction Status Date / Time carvedilol [From Coreg] AdvReac Severe shortness Unverified 02/14/21 12:34 of breath Consultations 02/14/21 13:04 ED Decision to Admit Stat 02/14/21 13:42 Consult Orthopedic Surgery Routine 02/14/21 13:45 Consult Cardiology Routine 02/14/21 19:56 Consult Health Information Management Routine 02/15/21 10:57 Consult Health Information Management Routine Ordered Studies 02/14/21 10:31 CT lumbar spine wo con Stat Hospital Course (1) Acute respiratory failure with hypoxia: Secondary to acute systolic heart failure exacerbation. Initially hypoxic at 83%, improved to 97% on 2L NC Continue supplemental oxygen as needed (2) Acute on chronic systolic heart failure: Patient follows with the cardiology office in [place]. EF 20 to 25% per Echo S/P ICD Lasix dose increased to 40 mg daily Continue low-salt diet Needs follow-up with cardiology upon discharge Metoprolol dose decreased to 12.5 mg daily Monitor volume status, I's and O's, daily weight (3) Lumbar compression fracture: As per Prior hospitalist H/O frequent falls at home with chronic longstanding back pain. Imaging reveals acute lumbar (L2) compression fracture Given his poor medical condition TLSO was not prescribed and conservative management advised (seen by orthopedics) Continue with tramadol 50mg PRN. Appreciate orthopedics input PT OT SNF as able (4) Hyperkalemia: Uncertain etiology. Lisinopril discontinued Also received IV diuretics, Kayexalate Monitor (5) Ambulatory dysfunction: History of spinal stenosis, worsening pain and ambulatory dysfunction over the past month. Recurrent falls at home. Fall precautions PT/OT SNF (6) CAD (coronary artery disease): H/O CABG in 1994 at [place], follows with Dr. Holm of [facility] cardiology Has ICD placed Continue aspirin, Toprol, statin Needs follow-up with cardiology upon discharge (7) COPD (chronic obstructive pulmonary disease): Quit smoking in 1988. Not on home O2. No signs of COPD Exacerbation Continue Salmeterol (8) Atrial fibrillation: Per cardiology notes from November at [facility], patient has paroxysmal atrial fibrillation resulting in an inappropriate ICD shock which led to amiodarone therapy. Started on Eliquis. No bleeding issues previously (Checked with patient and family). Patient agrees with management. Rate is controlled with Toprol XL (now dose decreased at 12.5 mg). Also on Amiodarone (9) PAD (peripheral artery disease): H/o vascular intervention of bilateral femoral arteries per patient/notes. Continue aspirin and statin. (10) Macrocytic anemia: Macrocytic anemia H/O longstanding alcohol use, reportedly quitting approximately 5 years ago. Hemoglobin is stable. No evidence of B12 or folate deficiency on labs Follow-up as outpatient with primary care provider for further investigation (11) CKD (chronic kidney disease), stage III: Unknown baseline Cr stable (12) Noncompliance with medication regimen: Noted in outpatient notes. (13) DVT prophylaxis: SQ heparin Code status: FULL CODE Disposition SNF Total Time Total Time Spent Total Time Spent (In Minutes): 42 minutes Discharge Plan Discharge Items Patient Disposition: Transfer Nursing Home Fac Reason For Visit: HYPOXIA, DECOMPENSATED HF Discharge Diagnosis: Acute on chronic systolic heart failure Hypoxia Lumbar compression fracture COPD Activity: Per Instructions section Non-emergency contact: Primary Care Provider and Relief Operator Call non-emergency contact if: you have any medication questions and your symptoms worsen Follow-up/Referrals: Dr Armando Holm [Other] - 03/20/21 11:30 am Vita Wright DO [Primary Care Provider] - Diet: Heart Healthy and Low Sodium (2gm) Fluids: 1500ml (6 cups) Addtl Attending Provider Instructions: It is recommended that you follow-up with your canvas worker apprentice, Dr. Holm, at the [facility]. Records from current hospitalization, will be sent to your canvas worker apprentice. Also make sure to follow-up with your primary care doctor after discharge. Dose of your metoprolol was decreased to 12.5 mg daily. Call your Primary Care doctor if any of the following symptoms or problems start or get worse: * Shortness of breath or difficulty breathing * Wake up at night short of breath * Chest pain * Cough * Swelling of your hands, feet, or legs * More fatigued or tired with your normal activity * Palpitations - sudden fast heart beats WEIGHT * Weigh yourself every morning after using the bathroom. * Use the same scale. * Wear the same amount of clothing. * Write your weight down on a chart. * Call your Primary Care doctor if you gain more than 2-3 pounds in 1-2 days. MEDICATIONS * Use this discharge instruction sheet for medication instructions. * Take your medications at the time your doctor ordered. * Do not skip a dose of your medicines. * If you miss a dose of medicine, take it as soon as possible, but DO NOT DOUBLE A DOSE. * Read your medicine information when you get home. * Know all of the side effects of your medicine. If in doubt, ask your pharmacist * Call your Primary Care doctor's office if you have any side effects. * Be sure all of your doctors know what medicine and herbs you take (including cold, flu, and herbal medicine). Take the following with you to your follow-up doctor appointments: * Weight Chart * Medication List * List of questions Do not drink excessive alcohol, beer or wine. Pending Studies at Discharge: No Stand-Alone Forms: My [facility] Skilled Items Patient informed of condition?: Yes DNR: Yes Discharge Level of Care: Skilled Communicable Disease: No Discharge Prognosis: Other Lines: None Urinary Catheter: No Medications and DC Order Prescriptions: New Eliquis 2.5 mg Tablet 5 mg PO BID Qty: 60 RF: 0 metoprolol succinate 25 mg Tablet Extended Release 24 Hr 12.5 mg PO QAM Qty: 30 RF: 0 atorvastatin 40 mg Tablet 40 mg PO QAM Qty: 30 RF: 0 tramadol 50 mg Tablet 50 mg PO Q4H PRN (Reason: pain) Qty: 10 RF: 0 Continued amiodarone [Pacerone] 200 mg tablet 200 mg PO QAM RF: 0 aspirin [Aspirin Low Dose] 81 mg Tablet,Delayed Release (Dr/Ec) 81 mg PO QAM RF: 0 Serevent Diskus 50 mcg/dose blister with device 1 inh INHALATION BID RF: 0 Changed furosemide [Lasix] 20 mg tablet 40 mg PO QAM Qty: 0 RF: 0 Discontinued metoprolol succinate [Toprol XL] 50 mg tablet extended release 24 hr 50 mg PO QAM RF: 0 lisinopril [Zestril] 10 mg tablet 10 mg PO QAM RF: 0 Discharge Orders: Discharge Order (Routine); Ordered 02/25/21 Ordered By: Izaiah Romero Admission Data Admit Date/Time: 02/14/21 13:40 Attending Provider: Izaiah Romero Admit Provider: Marta Wong Primary Care Provider: Vita Wright Other Providers: Marilu Sweet ; Nena Esposito ; Marta Wong ; Jaguar Sawant ; [place] Other Interventions: Discharge Summary Assessment (RN) Last Done: 02/25/21 10:45
== END 2021-02-25 11:32 | DRG 291 ==
LOC: ED 09:40 → 2S 13:40 → SUATTDRO 13:40 → 2S 16:12 → 2N 02-24 01:04